=== PATIENT | female | born 1945 | race Caucasian/White ===

== ENCOUNTER 2017-10-21 14:00 | Outpatient (RCR) | payer MEDICARE, OTHER, SELFPAY ==
--- NOTE | 2017-09-29 16:37 | HP.PTEVAL_ITS ---
Patient's Visit Information JAVIER STANFORD is a 71 year old F referred to Physical Therapy by Radha Casanova with a diagnosis of Myesthenia Gravis. Date of Evaluation: 09/29/17 Physical Therapist: Shirley Hubbard - Visit Plan Frequency: 3x /Week Duration: 3 Weeks Plan: Focus on posture and head control - Subjective Subjective: Patient reports that she has been through a very traumatic few months. She got her hip replaced and started to feel that something was not right. She was driving in the car with her and started to see spots. She went to the eye doctor and he sent her to the ER due to weakness of the eye muscles. She has had multiple hospital stays at [place] [facility] and ended up with a diagnosis of Myasthenia Gravis. She reports that her neck has been the most effected and she is having good return of vision. She had home therapy for 6 weeks and is now ready to start outpatient. She is still doing the exercises from the PT at home but not as much as she thinks she should. She has no pain in the neck just reports stiffness. She wears a cervical collar at the end of the day and when she has to get things done around the house. She is very frustrated about Thanksgiving coming up and she is unsure how she will get it all done. at home to help. Does not stop her from sleeping. Feels the best in the AM. PMHx/meds in chart - Objective Posture: severe forward head- patient can not raise eyes to eye level without head falling forwards or leaning back. She can not obtain upright posture with trunk or cervical spine. Gait: antalgic- uses FWW. Observation; patient wears cervical collar. ROM: seated patient does not obtain ROM of cervical spine due to decreased strength, while supine patient demonstrates full ROM without pain. UE: WNL in all planes. Strength; Cervical: 2+/5, Shoulder; 4+/5 Scap s/s; poor , Core s/s:poor. - Goals Goal 1:: Patient will be I with HEP and progression Goal Time Frame: 4-6 Weeks Goal 2:: Patient will maintain proper posture t/o tx session Goal Time Frame: 4-6 Weeks Goal 3:: Patient will hold eye level for 15 seconds Goal Time Frame: 4-6 Weeks Goal 4:: Patient will report ability to perform ADL's with less than 25% assistance Goal Time Frame: 4-6 Weeks - Rehabilitation Potential Physical Therapy Diagnosis: Patient present with forward head and poor posture leading to inability to perform ADL's. Rehabilitation Potential: Fair - Anticipated Interventions Patient/Client Instruction: Educate patient on: Benefits of Fitness Program For the Purpose of:: To increase tolerance to activity/condition/position Therapeutic Exercise to Include: Strength training, Endurance training, Body mechanics, Postural training, Passive ROM, Active ROM, Scapular Strength/ Stabilization For the Purpose of:: To improve muscle performance and motor function Thank you for the opportunity to evaluate your patient. For Medicare and Medicare HMO plans, please review the plan of care and approve it. It will need to be FAXED BACK to us at [phone] for Medicare purposes. Please let me know if there are questions or concerns regarding this plan of care. Physician Signature: Date:
--- NOTE | 2017-12-16 14:01 | HP.PTDCNRP_ITS ---
HP - Discharge Summary (1) - Patient Information JAVIER STANFORD was seen in my office for initial evaluation on 09/29/17. The following Plan of Care was established for this patient: Initial Frequency: 3x /Week Initial Duration: 3 Weeks - Anticipated Interventions Patient/Client Instruction: Educate patient on: Benefits of Fitness Program For the Purpose of:: To increase tolerance to activity/condition/position Therapeutic Exercise to Include: Strength training, Endurance training, Body mechanics, Postural training, Passive ROM, Active ROM, Scapular Strength/ Stabilization For the Purpose of:: To improve muscle performance and motor function This patient was last seen in our office . Pertinent comments regarding their Physical therapy will appear below: At this point I will be discontinuing this patient from physical therapy. I would be happy to see this patient again in the future if found appropriate by the physician. Thank you! Shirley Hubbard
== END 2017-10-21 19:00 | disposition home or self-care (01) ==
LOC: PT 14:00
PROVIDERS: Family Provider Nurse Practitioner; PCP Nurse Practitioner; Visit Provider Nurse Practitioner
DX: G70.00 Myasthenia gravis without (acute) exacerbation (principal)
CPT/HCPCS: 97110; 97163; G8978; G8979

== ENCOUNTER 2018-06-17 16:00 | Outpatient (RCR) | payer MEDICARE, OTHER, SELFPAY ==
--- NOTE | 2018-04-22 17:41 | HP.PTEVAL_ITS ---
Patient's Visit Information JAVIER STANFORD is a 72 year old F referred to Physical Therapy by SUSIE Hoff with a diagnosis of Unsteady gait, unsteady balance. Date of Evaluation: 04/22/18 Physical Therapist: Jose C Mtz PT, - Visit Plan Frequency: 2x /Week Duration: 4 Weeks Plan: Nustep for endurance. Strengthening program focusing proximal muscle groups and functional training. Static and dynamic balance program. Precautions : Falls risk. Myasthenia Gravis, R DREW 05/2018, R TKA ~2004. - Subjective Subjective: This 72 y/o female presents to physical therapy unteady gait.Pt reports that she started noticing L LE weakness about a year ago after her R DREW on 05/2018. Her main c/o is worsening endurance, balance, and strength. She does have mild L groin pain that worsens with strenuous activities. She was diagnosed with Myasthenia Gravis last year. Had outpatient PT here at [facility] in October for her neck. She notes proximal weakness. She is able to cook small meals, do laundry, dishes, and do light housework. She does have history of falls, most recent was 6 weeks ago. She has been using cane since her R DREW. She feels too unsteady without the cane. SOCIAL: Ranch style home with basement, 2 SU. Lives with who is ill health, HHPT coming to house. No issues with manuvering through the house. - Objective GAIT: ambulates with SPC in L UE, holds head in flexion, forwardly flexed. NEURO: dermatomes intact, myotome intact, L3 DTR 2+. STRENGTH: B hip abd 2/5. B hip flexors 4/5,quads/hams 4-/5. FLEXIBILITY: Severe tightness B hip flexors. STATIC BALANCE: mild sway with narrow ANANDA with eyes closed. Able to peanut picker object off ground with supervision. - Balance Scores Functional Gait Assessment Score: 9 % Disability: 70.0000 - Goals Goal 1:: Pt will score 4 points better on FGA to demonstrate a true change in dynamic balance. Goal Time Frame: 4-6 Weeks Goal 2:: Pt will demonstrate hip ext/abd strength of 3+/5 to aid in pelvic stability with ambulation. Goal Time Frame: 4-6 Weeks Goal 3:: Pt will report at least 50% improvement on LEFS to demonstrate improved function and QOL. Goal 4:: Pt will be independent with HEP to sustain gains made in PT. - Rehabilitation Potential Physical Therapy Diagnosis: Pt is 72 y/o female who presents to therapy with referaal for unsteady gait and balance. She notes endurance, strength, and balance as primary concerns. She was diagnosed with Myasthenia Gravis last year. She demonstrates significant proximal muscle weakness and poor balance on exam. She has activity limitations that include decreased ambulation distance, decreased functional strength, and decreased independence with ambulation. This affects her participation with household activities. Pt will benefit from skilled PT to address the mentioned impairments to maximize her functional potential. Rehabilitation Potential: Good - Anticipated Interventions Patient/Client Instruction: Educate patient on: Condition, Plan of Care For the Purpose of:: To improve ability to perform ADL's, To increase tolerance to activity/condition/position, To improve ability of physical actions for home/ community/work/leisure, To improve gait and locomotor functions, To improve endurance, To improve balance, To improve safety with gait, To improve safety, To improve health and function Therapeutic Exercise to Include: Strength training, Endurance training, Balance training, Coordination, Postural training, Flexibilty training, Gait and locomotor training, Active ROM For the Purpose of:: To improve muscle performance and motor function, To improve ability to perform ADL's, To increase tolerance to activity/condition/ position, To improve ability of physical actions for home/community/work/leisure , To improve gait and locomotor functions, To improve safety with gait, To improve safety TENS: Yes IF ES: Yes Other electric stimulation: Yes Cryotherapy (ice pack, ice massage): Yes Thermo therapy (hot pack): Yes Ultrasound (thermal/non thermal): Yes For the Purpose of:: To decrease pain, To decrease soft tissue restriction, To increase flexibility/ROM Thank you for the opportunity to evaluate your patient. For Medicare and Medicare HMO plans, please review the plan of care and approve it. It will need to be FAXED BACK to us at [phone] for Medicare purposes. Please let me know if there are questions or concerns regarding this plan of care. Physician Signature: Date:
--- NOTE | 2018-05-19 16:55 | HP.PTREVAL_ITS ---
Flory Kapadia, NHAN-C, It has been my pleasure to treat JAVIER STANFORD over the last 9 visits for Unsteady gait, unsteady balance. Please see the progress note below for an update on the physical therapy plan of care! Subjective: Pt believes that she has made about 40% improvement thus far with PT. She still notes weakness in her hips and some balance deficits while walking. She agrees to continue for about month to work more on these problems. Objective/Function: Pt appears to be improving. She reports 40% improvement with gait since starting PT. She has met 2/4 PT goals. Her FGA has improved 3 points and her LEFS has improved 16 points. She exhibits 2/5 MMT grade for hip abd and ext. She would benefit from additional therapy to address hip strength, hip mobility, and balance. Plan Plan: Continue x2/week for 4 weeks to work on hip strength and progressive balance. Goals Goal 1:: Pt will score 4 points better on FGA to demonstrate a true change in dynamic balance. Goal Time Frame: 4-6 Weeks Goal Progress: Progressing Goal 2:: Pt will demonstrate hip ext/abd strength of 3+/5 to aid in pelvic stability with ambulation. Goal Time Frame: 4-6 Weeks Goal Progress: Progressing Goal 3:: Pt will report at least 50% improvement on LEFS to demonstrate improved function and QOL. Goal Progress: Goal Met Goal 4:: Pt will be independent with HEP to sustain gains made in PT. Goal Progress: Goal Met Anticipated Interventions Patient/Client Instruction: Educate patient on: Condition, Plan of Care For the Purpose of:: To improve ability to perform ADL's, To increase tolerance to activity/condition/position, To improve ability of physical actions for home/ community/work/leisure, To improve gait and locomotor functions, To improve endurance, To improve balance, To improve safety with gait, To improve safety, To improve health and function Therapeutic Exercise to Include: Strength training, Endurance training, Balance training, Coordination, Postural training, Flexibilty training, Gait and locomotor training, Active ROM For the Purpose of:: To improve muscle performance and motor function, To improve ability to perform ADL's, To increase tolerance to activity/condition/ position, To improve ability of physical actions for home/community/work/leisure , To improve gait and locomotor functions, To improve safety with gait, To improve safety TENS: Yes IF ES: Yes Other electric stimulation: Yes Cryotherapy (ice pack, ice massage): Yes Thermo therapy (hot pack): Yes Ultrasound (thermal/non thermal): Yes For the Purpose of:: To decrease pain, To decrease soft tissue restriction, To increase flexibility/ROM Please do not hesitate to contact me at [phone] by phone or Fax: if you have questions or concerns regarding this new plan of care! Sincerely, Jose C Mtz PT,
--- NOTE | 2018-06-17 16:31 | HP.PTDCSUM ---
HP - PT D/C Summary It has been my pleasure to treat JAVIER STANFORD under orders from MARTHA HoffC, for the diagnosis of Unsteady gait, unsteady balance for a total of 17 visit(s). Discharge Date: 06/17/18 Please see the following information for a summary of their discharge status. - Subjective Subjective: Doing alot better ,walking better. Patient states stiffness. Doing better with ADLS' at home. Wants to be seen for PT for cervical spine. - Overall Improvement % Improvement: 75 - Objective Objective/Function: POSTURE: foward head rounded shoulders. GAIT: Ambulates with cane 2 point mild foward posture. reciprocal pattern. BALANCE: good - dynamic. MMT: quads/hams 4/5,hip flexion 4-/5,ankle 4/5. STAIRS: one steps at time - Goals Goal 1:: Pt will score 4 points better on FGA to demonstrate a true change in dynamic balance. Goal Progress: Goal Met Goal 2:: Pt will demonstrate hip ext/abd strength of 3+/5 to aid in pelvic stability with ambulation. Goal Progress: Progressing Goal 3:: Pt will report at least 50% improvement on LEFS to demonstrate improved function and QOL. Goal Progress: Goal Met Goal 4:: Pt will be independent with HEP to sustain gains made in PT. Goal Progress: Goal Met - Plan Plan: D/C TO HEP - D/C Information Discharge Comments: HEP If there are questions or concerns regarding this patient's physical therapy, please feel free to call me at [phone]. Thank you for the referral of this patient. Sincerely, Jose C Mtz, PT,
== END 2018-06-17 19:00 | disposition home or self-care (01) ==
LOC: PT 16:00
PROVIDERS: Family Provider Nurse Practitioner; PCP Nurse Practitioner; Visit Provider Nurse Practitioner Acute Care
DX: R26.81 Unsteadiness on feet (principal)
CPT/HCPCS: 97110; 97116; 97162; 97530

== ENCOUNTER → 2018-07-16 14:33 | Outpatient (CLI) | payer MEDICARE, OTHER, SELFPAY ==
[2018-07-16 16:25] LABS: Free T3 1.8 pg/mL (2.18-3.98); T4 Free Direct 1.16 ng/dL (0.76-1.46)
== END ==
PROVIDERS: Family Provider Nurse Practitioner; PCP Nurse Practitioner; Visit Provider Nurse Practitioner
DX: R94.6 Abnormal results of thyroid function studies (principal)
CPT/HCPCS: 36415; 84439; 84443; 84481

== ENCOUNTER → 2018-10-14 14:10 | Outpatient (CLI) | payer MEDICARE, OTHER, SELFPAY ==
--- NOTE | 2018-10-14 14:16 | BI_ITS ---
MAMMOGRAPHY - BILATERAL SCREENING REASON FOR EXAM: Female, 72 years old. Routine annual screening examination. PERTINENT HISTORY: Non-contributory. TECHNIQUE: Digital bilateral breast negrito (3D mammographic acquisition) in the CC and MLO projections. 2-D mediolateral oblique (MLO) and craniocaudad (CC) views of both breasts were obtained. CAD: Full Field Digital Mammography with Computer Added Detection was performed. COMPARISON: Comparison is made with prior study dated September 23, 2016 and February 10, 2014. FINDINGS: Breast Composition: The breasts are almost entirely fatty. There are no dominant masses or suspicious calcifications. No other significant abnormalities are identified. There has been no significant change since the prior study. BI/SCREENING MAMM (CAD), BILAT IMPRESSION: Stable bilateral screening mammogram. Yearly follow-up mammogram recommended. (A) ASSESSMENT CATEGORY: BIRADS Category 1: Negative. A letter regarding these results will be sent to the patient by the facility within 30 days. Approximately 10% of breast cancers are not detected by mammography. A normal mammogram should not delay biopsy of a clinically suspicious abnormality. [id number] Electronically Signed: Stephen Marroquin MD at 15:40 EST Tel [phone], Service support ,
--- NOTE | 2018-10-14 14:22 | BD_ITS ---
STUDY: DUAL ENERGY X-RAY ABSORPTIOMETRY / DXA REASON FOR EXAM: Female, 72 years old. The patient is postmenopausal. Loss of height. TECHNIQUE: Bone Mineral Density (BMD) measurements of lumbar spine and left hip were obtained. The patient is status post right hip replacement. COMPARISON: Comparison is made with prior study dated September 23, 2016. FINDINGS: Lumbar Spine (L1-L4): g/cm2 (1.147) / T-score (-0.4) / Z-score (1.3) Findings are suggestive of normal bone density with a low fracture risk. Left Femur Total: g/cm2 (0.942) / T-score (-0.5) / Z-score (1.1) Left Femoral Neck: g/cm2 (0.955) / T-score (-0.6) / Z-score (1.3) The T-Scores on the most recent prior examination were: Lumbar Spine (L1-L4): There has been worsening of bone density since the previous examination. Left Femur Total: which represents a worsening of 9.1%. Right Femur Total: . BD/Dexa Bone Density Study IMPRESSION: The patient is considered normal as outlined below according to World Franco Organization (WHO) criteria with a low fracture risk. There has been worsening of bone density since the previous examination. Reference Information: The T-score is the number of standard deviations above or below the standard which is normal for young adults at their peak bone mineral density. The World Health Organization (WHO) interprets the T-scores as follows: Above -1 Normal bone density Between -1 and -2.5 Osteopenia Equal to / or below -2.5 Osteoporosis As a practical clinical guideline, osteopenia may be graded as follows: Mild -1 through -1.5 Moderate -1.6 through -2.0 Severe -2.1 through -2.4 The Z-score is the number of standard deviations above or below age-matched controls. A Z-score of less than -1.5 would be considered abnormal. References: 1. NIH Osteoporosis and Related Bone Diseases http://www.osteo.org 2. International Society for Clinical Densitometry http://www.iscd.org 3. National Osteoporosis Foundation http://www.nof.org Electronically Signed: Stephen Marroquin MD at 12:17 EST Tel [phone], Service support ,
== END ==
PROVIDERS: Family Provider Nurse Practitioner; PCP Nurse Practitioner; Visit Provider Nurse Practitioner
DX: Z12.31 Encounter for screening mammogram for malignant neoplasm of breast (principal); Z78.0 Asymptomatic menopausal state
CPT/HCPCS: 77063; 77067; 77080

== ENCOUNTER → 2019-04-15 14:51 | Outpatient (CLI) | payer MEDICARE, OTHER, SELFPAY ==
--- NOTE | 2019-04-15 15:05 | RAD_ITS ---
STUDY: X-RAY - PELVIS AND LEFT HIP REASON FOR EXAM: Female, 73 years old. Left hip pain. Patient fell TECHNIQUE: 3 views of the pelvis and hip. COMPARISON: None. FINDINGS: There is a cementless right hip hemiarthroplasty with hardware in good position. Severe osteoarthritis of the left hip. Tubal ligation clips in the pelvis. No acute fractures or dislocations. RAD/HIP, UNI W/ Pelvis 2-3 Views IMPRESSION: Severe osteoarthritis of the left hip. A cementless bipolar right hip hemiarthroplasty. No fracture Electronically Signed: Darius Shoemaker MD at 4:44 EDT Tel , Service support ,
== END ==
PROVIDERS: Family Provider Nurse Practitioner; PCP Nurse Practitioner; Referring Provider Nurse Practitioner Family; Visit Provider Nurse Practitioner Family
DX: M25.552 Pain in left hip (principal)
CPT/HCPCS: 73502

== ENCOUNTER → 2019-05-11 14:36 | Outpatient (CLI) | payer MEDICARE, OTHER, SELFPAY ==
[2019-05-11 14:23] VITALS: BMI 31.4
--- NOTE | 2019-05-11 14:39 | RAD_ITS ---
STUDY: X-RAY - PELVIS AND LEFT HIP REASON FOR EXAM: Female, 73 years old. Preop left hip, history of pain TECHNIQUE: 3 views of the pelvis and hip. COMPARISON: 01/29/2017 FINDINGS: There is narrowing of the superior left femoral acetabular joint space which demonstrates interval worsening. There are stable significant osteophyte formation of the left hip. There is also stable acetabular osteophytes. There has been total right hip prosthesis since prior exam which is incompletely imaged on this study. There are no fractures. There is a marker overlying the left hip. There are stable surgical clips within the pelvis. There is generalized osteopenia. There are vascular calcifications in the pelvis. The entire pelvis was not included on the [id number]. The superior pelvis was excluded from the [id number]. RAD/HIP, UNI W/ Pelvis 2-3 Views IMPRESSION: Interval worsening significant osteoarthrosis of the left hip Right hip prosthesis in place in good position No acute fractures Marker overlying the left hip The superior pelvis was excluded from the [id number] Generalized osteopenia Vascular calcifications in the pelvis Stable surgical clips within the pelvis Electronically Signed: Chava Xie, at 0:09 EDT Tel , Service support ,
== END ==
PROVIDERS: Family Provider Nurse Practitioner; PCP Nurse Practitioner; Referring Provider Orthopaedic Surgery; Visit Provider Orthopaedic Surgery
DX: M16.12 Unilateral primary osteoarthritis, left hip (principal)
CPT/HCPCS: 73502

== ENCOUNTER → 2019-05-31 15:47 | Outpatient (CLI) | payer MEDICARE, OTHER, SELFPAY ==
[2019-05-31 10:03] VITALS: BMI 33.1
--- NOTE | 2019-05-31 15:55 | RAD_ITS ---
STUDY: X-RAY CHEST REASON FOR EXAM: Female, 73 years old. Pre-op. TECHNIQUE: PA and lateral views of the chest. COMPARISON: July 19 and August 12, 2017 FINDINGS: There is a nonspecific right basilar opacity. The lungs are hyperinflated. Normal size heart. Normal mediastinum and nohemi. Normal visualized pulmonary arteries. There is atherosclerotic calcification of the aortic arch with tortuosity. Normal visualized thoracic spine. There are left lateral rib deformities consistent with healed fractures. There is no demonstrated abnormality of the visualized soft tissue structures of the upper abdomen. RAD/Chest PA and Lateral IMPRESSION: Nonspecific right basilar opacities may be secondary to minimal atelectasis and/or scarring. Electronically Signed: Mimi Armendariz MD at 16:12 EDT Tel , Service support ,
== END ==
PROVIDERS: Family Provider Nurse Practitioner; PCP Nurse Practitioner; Referring Provider Nurse Practitioner; Visit Provider Nurse Practitioner
DX: R06.02 Shortness of breath (principal)
CPT/HCPCS: 71046

== ENCOUNTER 2019-06-14 04:28 | Inpatient (IN) | payer MEDICARE, OTHER, SELFPAY ==
--- NOTE | 2019-05-11 02:33 | HP_ITS ---
Intake Vital Signs 05/11/19 Body Mass Index (BMI) 31.4 05/11/19 Height 5 ft 1.5 in 05/11/19 Weight: 182 lb 05/11/19 Body Mass Index (BMI) 33.8 Intake Visit Reasons: LEFT HIP Is patient in pain?: Yes Pain scale (1-10): 6 Allergies No Known Allergies Allergy (Verified 07/15/18 13:50) Medications Acetaminophen [Tylenol] 1,000 mg PO Q8H PRN PRN tab 07/28/17 [Rx Confirmed 07/15/18] Metoprolol Tartrate [Lopressor (beta aleksey)] 25 mg PO BID 08/12/17 [History Confirmed 05/11/19] busPIRone [Buspar] 7.5 mg PO BID 08/12/17 [History Confirmed 05/11/19] Pyridostigmine Carbon [Mestinon] 60 mg PO Q6 #120 tab 08/18/17 [Rx Confirmed 05/11/19] albuterol sulfate HFA 90 mcg/actuation aerosol inhaler 2 puff INHALATION Q6H PRN 07/13/18 [History Confirmed 07/15/18] mycophenolate mofetil 500 mg tablet 500 mg PO BID 07/13/18 [History Confirmed 05/11/19] lisinopril 20 mg tablet 20 mg PO DAILY #30 tab 07/15/18 [Rx Confirmed 05/11/19] levothyroxine 25 mcg tablet PO #90 tab 05/11/19 [History Confirmed 05/11/19] PFSH Medical History Tobacco abuse (Chronic) Anxiety (Chronic) Bilateral pneumonia (Acute) Septic shock (Acute) Atrial fibrillation (Acute) Suspected pulmonary embolism (Acute) below knee dvt (Acute) Acute hypoxemic respiratory failure (Acute) Ptosis (Acute) Cervical disc disease (Chronic) Neck pain (Acute) Atrial fibrillation with RVR (Acute) HTN (hypertension) (Chronic) Myasthenia gravis (Chronic) suspected myasthenia gravis (Inactive) Surgical History History of bilateral tubal ligation (Resolved) History of dilatation and curettage (Resolved) History of hip replacement (Resolved) History of knee replacement procedure of right knee (Resolved) Family History (Updated 07/13/18 @ 15:21 by Margaret Tam) Father Myocardial infarction, Onset Age: 44 Social History (Updated 05/11/19 @ 15:30 by Milan Galicia DO) Smoking Status: Current every day smoker alcohol intake: current details: 1 beer daily substance use type: does not use HPI LEFT HIP: Surgical H&P: Yes Details: Parts of this documentation were recorded by a scribe, this documentation accurately reflects the service provided and the decisions made by me, Milan Galicia DO 05/11/19 1045. JAVIER STANFORD is a 73 year old new patient F here today for left hip pain. She has been having pain on and off for years but her groin pain is getting greater with prolonged standing and walking. She presents today ambulating with a cane. She has completed PT twice in the last year. Her right hip was replaced by Dr Bolanos in 2017. Denies numbness, tingling or other associated symptoms. She is having difficulty with hip flexion when she walks and makes her lose her balance. She has several fractures at age 37. Ortho Exam Left Hip Skin/Wound: No Ecchymosis, No Erythema Hip: Absent eccymosis or erythema internal rotation @90 degree flexion: 0 degrees external rotation @90 degree extension: 30 degrees Special Tests: hyperflexion normal HIP: neurovascularly intact Supplemental Info 05/11/2019 x-ray left hip severe DJD with shortening Assessment & Plan Problems 1. Osteoarthritis of left hip, unspecified osteoarthritis type M16.12 Plan Explained that she is a candidate for DREW and encouraged her to stop her smoking to reduce risk of infection. She will need medical clearance from her Neurologist for the myasthenia gravis, as well as a medical clearance, DREW. Will get new imaging today with Orth O ball for templating. Reviewed her post op possibilities of tcu vs home care Risks, benefits and alternatives of surgery reviewed including but not limited to bleeding, infection, nerve, artery and/or tissue damage, fracture, VTE, leg length discrepancy, dislocation, need for hip precautions, continued pain and expected post-operative course. Follow up post op or sooner if pain, swelling, numbness or associated symptoms, or concerns develop. All questions answered. Patient in agreement of plan. Coding Level of Care Code Off vis,new,level 3 Diagnoses Osteoarthritis of left hip, unspecified osteoarthritis type M16.12 ??Osteoarthritis type: unspecified 05/11/19 1531 <Electronically signed by Milan hawley DO> Date _ Milan Galicia DO
[2019-05-11 14:23] VITALS: BMI 31.4
[2019-05-31 10:03] VITALS: BP 191/95; PULSE 67; RESP 18; TEMP 36.3; O2SAT 97; BMI 33.1
--- NOTE | 2019-05-31 10:09 | SDCEKG_ITS ---
Test Reason : Blood Pressure : / mmHG Vent. 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
[2019-05-31 10:45] LABS: Hematocrit 41.5 % (37-47); Hemoglobin 13.9 g/dL (12.0-15.0); Mean Corp Hgb Conc 33.5 g/dL (32-36); Mean Corpuscular Hgb 31.4 pg (27.0-32.0); Mean Corpuscular Volume 93.7 fL (81-99); Mean Platelet Vol. 10.9 fl (6.2-12.0); Platelet Count 192 K/mm3 (150-450); RBC Distribution Width CV 12.6 % (11.6-14.6); Red Blood Count 4.43 M/mm3 (4.2-5.4); White Blood Count 6.9 K/mm3 (4.4-11.0)
[2019-05-31 11:07] LABS: Anion Gap 7 (5-15); BUN 22 mg/dL (7-18); BUN/Creat Ratio 27.2 RATIO (10-20); Calcium,Total 9.7 mg/dL (8.5-10.1); Chloride 111 mmol/L (98-107); Creatinine, Serum 0.81 mg/dL (0.55-1.02); EST Glomerular Filtration Rate 74 mL/min (>60); Est Glom Filt Rate - Afr Amer 89 mL/min (>60); Estimated Creatinine Clearance 48.19 ml/min; Glucose 106 mg/dL (74-106); Potassium 4.3 mmol/L (3.5-5.1); Sodium Level 140 mmol/L (136-145); Thyroid Stim Hormone (TSH) 2.05 uIU/mL (0.358-3.74)
--- NOTE | 2019-06-02 09:51 | CASEMGMT ---
Call placed to patient to discuss discharge needs after upcoming surgery. answered phone, reports patient is sleeping. reports that physician told them patient would be kept in the hospital for a few days. was thinking patient would go to [facility] TCU. reports that patient does not have a walker, but has everything else set up d/t having a hip replacement a few years ago. There is a bedroom and a bathroom on the first level of the home. Meme Jhaveri LPN Clinical Support
[2019-06-07] MEDS: Gabapentin 600 MG Tablet PO (06:25)
[2019-06-14] VITALS (14 sets, daily range): BP systolic 114–146; BP diastolic 48–94; PULSE 60–77; RESP 16–18; TEMP 35.9–37.2; O2SAT 94–100; BMI 33.1; BMI 33.2
[2019-06-14] MEDS: Magnesium Sulfate 4gm/100mL 4 GM/100 ML IV.SOLN. IV ×2 (06:25→06:35)
[2019-06-14] MEDS: Scopolamine 1mg/72hr Patch 1 PATCH TRANSDERM. ×2 (06:25→06:37)
[2019-06-14] MEDS: Celecoxib 200 MG Capsule 400 MG PO ×2 (06:35→06:36)
[2019-06-14] MEDS: Acetaminophen 500 MG Tablet 1000 MG PO ×4 (06:35→22:36)
[2019-06-14] MEDS: Gabapentin 600 MG Tablet PO (06:40)
--- NOTE | 2019-06-14 07:20 | PCM.HP.BLA ---
History and Physical istory and Physical 05/11/19 0233 MR#: [id number] Acct: [id number] Name: JAVIER STANFORD Rep #: [id number] : 1945 73 From: Milan Galicia DO PCP: Radha Casanova, NEUROPSYCHOLOGY DIRECTOR Status: PRE IN [place] [facility] [place] Vital Signs 05/11/19 Body Mass Index (BMI) 31.4 05/11/19 Height 5 ft 1.5 in 05/11/19 Weight: 182 lb 05/11/19 Body Mass Index (BMI) 33.8 Intake Visit Reasons: LEFT HIP Is patient in pain?: Yes Pain scale (1-10): 6 Allergies No Known Allergies Allergy (Verified 07/15/18 13:50) Medications Acetaminophen [Tylenol] 1,000 mg PO Q8H PRN PRN tab 07/28/17 [Rx Confirmed 07/15/18] Metoprolol Tartrate [Lopressor (beta aleksey)] 25 mg PO BID 08/12/17 [History Confirmed 05/11/19] busPIRone [Buspar] 7.5 mg PO BID 08/12/17 [History Confirmed 05/11/19] Pyridostigmine [place] [Mestinon] 60 mg PO Q6 #120 tab 08/18/17 [Rx Confirmed 05/11/19] albuterol sulfate HFA 90 mcg/actuation aerosol inhaler 2 puff INHALATION Q6H PRN 07/13/18 [History Confirmed 07/15/18] mycophenolate mofetil 500 mg tablet 500 mg PO BID 07/13/18 [History Confirmed 05/11/19] lisinopril 20 mg tablet 20 mg PO DAILY #30 tab 07/15/18 [Rx Confirmed 05/11/19] levothyroxine 25 mcg tablet PO #90 tab 05/11/19 [History Confirmed 05/11/19] [facility] Medical History Tobacco abuse (Chronic) Anxiety (Chronic) Bilateral pneumonia (Acute) Septic shock (Acute) Atrial fibrillation (Acute) Suspected pulmonary embolism (Acute) below knee dvt (Acute) Acute hypoxemic respiratory failure (Acute) Ptosis (Acute) Cervical disc disease (Chronic) Neck pain (Acute) Atrial fibrillation with RVR (Acute) HTN (hypertension) (Chronic) Myasthenia gravis (Chronic) suspected myasthenia gravis (Inactive) Surgical History History of bilateral tubal ligation (Resolved) History of dilatation and curettage (Resolved) History of hip replacement (Resolved) History of knee replacement procedure of right knee (Resolved) Family History (Updated 07/13/18 @ 15:21 by Margaret Tam) Father Myocardial infarction, Onset Age: 44 Social History (Updated 05/11/19 @ 15:30 by Milan Galicia DO) Smoking Status: Current every day smoker alcohol intake: current details: 1 beer daily substance use type: does not use HPI LEFT HIP: Surgical H&P: Yes Details: Parts of this documentation were recorded by a scribe, this documentation accurately reflects the service provided and the decisions made by me, Milan Galicia DO 05/11/19 0755. JAVIER STANFORD is a 73 year old new patient F here today for left hip pain. She has been having pain on and off for years but her groin pain is getting greater with prolonged standing and walking. She presents today ambulating with a cane. She has completed PT twice in the last year. Her right hip was replaced by Dr Bolanos in 2017. Denies numbness, tingling or other associated symptoms. She is having difficulty with hip flexion when she walks and makes her lose her balance. She has several fractures at age 37. Ortho Exam Left Hip Skin/Wound: No Ecchymosis, No Erythema Hip: Absent eccymosis or erythema internal rotation @90 degree flexion: 0 degrees external rotation @90 degree extension: 30 degrees Special Tests: hyperflexion normal HIP: neurovascularly intact Supplemental Info 05/11/2019 x-ray left hip severe DJD with shortening Assessment & Plan Problems 1. Osteoarthritis of left hip, unspecified osteoarthritis type M16.12 Plan Explained that she is a candidate for DREW and encouraged her to stop her smoking to reduce risk of infection. She will need medical clearance from her Neurologist for the myasthenia gravis, as well as a medical clearance, DREW. Will get new imaging today with Orth O ball for templating. Reviewed her post op possibilities of tcu vs home care Risks, benefits and alternatives of surgery reviewed including but not limited to bleeding, infection, nerve, artery and/or tissue damage, fracture, VTE, leg length discrepancy, dislocation, need for hip precautions, continued pain and expected post-operative course. Follow up post op or sooner if pain, swelling, numbness or associated symptoms, or concerns develop. All questions answered. Patient in agreement of plan. Coding Level of Care Code Off vis,new,level 3 Diagnoses Osteoarthritis of left hip, unspecified osteoarthritis type M16.12 ??Osteoarthritis type: unspecified 05/11/19 1531 <Electronically signed by Milan Galicia DO> Date Milan Galicia DO 05/25/19 1631 <Electronically signed by Milan Galicia DO> Date: Time: Milan Galicia DO CC: NHAN Casanova; Milan Galicia DO ~ Date Dictated: 05/11/19 0233 Date Transcribed: 05/24/19 0822 Tile Machine Operator: Signed I have re-examined the patient. There are no clinical changes since date of exam
[2019-06-14 07:31] LABS: Bedside Glucose 131 mg/dL (70-110)
[2019-06-14] MEDS: Cefazolin 2 GM in 0.9% Normal Saline 100 ML IV ×3 (07:34→22:55)
--- NOTE | 2019-06-14 09:34 | RAD_ITS ---
STUDY: X-RAY - PELVIS AND LEFT HIP REASON FOR EXAM: Female, 73 years old. Left hip replacement. TECHNIQUE: 2 views of the pelvis and hip. COMPARISON: None. FINDINGS: The patient is status post left hip replacement. There is good alignment. Postoperative soft tissue changes. RAD/Hip Min 2 Views (Portable) IMPRESSION: Status post left hip replacement. There is good alignment. Electronically Signed: Stephen Marroquin, at 13:07 EDT , Service support ,
--- NOTE | 2019-06-14 09:39 | OP.PCM_ITS ---
Report of Operation Date of Procedure: 06/14/19 Description of Surgical Findings:: Preoperative diagnosis: DJD left hip Postoperative diagnosis: Same Procedure: Left total hip arthroplasty Implants: Valentin Accolade II stem size 4 127 degree neck angle -2.5 neck length 54 mm cup with 35 cancellous screw 36 mm ceramic head Anesthesia: Spinal EBL: 150 cc Complications: None Condition: Stable to PACU Indication for procedure: This is a 73-year-old female who has had long-standing arthrosis of the hip who has failed conservative treatment and wished to undergo total hip arthroplasty. We did discuss operative versus nonoperative intervention including risks of bleeding, infection , nerve artery tissue damage , need for further surgery, fracture, leg length discrepancy dislocation blood clot and need for postoperative physical therapy and postoperative expectations. An informed consent was signed. Procedure: Patient was met in the preoperative holding area once again the operative extremity was identified by both patient and physician and was marked. Patient was met by anesthesia and a spinal was placed. patient was then positioned in the lateral decubitus position on a well-padded pegboard with an axillary roll. All bony prominences were checked and padded. The patient was prepped and draped in the usual sterile fashion. A timeout was called to ensure the proper patient procedure and extremity were being contemplated. Anatomic landmarks were palpated and marked for a standard posterior lateral approach. A 10 blade scalpel was used to make a posterior incision through the skin and subcutaneous tissue. In retractors were used and electrocautery was used to maintain meticulous hemostasis and dissect full-thickness flaps until the gluteal fascia was reached. The gluteal fascia was incised in line with the gluteal fibers. The bursal tissue was then freed from the underside and a Charnley retractor was placed. The fat pad was elevated off of the external rotators with electrocautery and the external rotators were dissected off of the greater trochanter including the piriformis and were tagged with #1 Ethibond for later repair. The joint capsule opened with posterior trapdoor technique. The hip was surgically dislocated. Hohmann was placed around the lesser trochanter. A neck cutting guide was used to eva the neck with a Bovie and an oscillating saw was used complete the femoral neck cut. The femoral head was then removed and sized. We then turned our attention to the acetabulum. A Bovie was used to make a perforation in the anterior joint capsule and a pointed Hohmann was placed this was repeated in the 6 o'clock position a wide scarlet was placed there. With a long handled knife the labral and pulvinar tissue were removed. We then began sequential reaming until the appropriate size was achieved. We then fit the acetabular shell in place with good customer service administrator to the acetabulum. We then proceeded to place a posterior superior screw by drilling first measuring and inserting the screw. We then inserted a trial liner. And turned our attention back to the femur at this point a femoral elevator was used. As well as a pointed wide Hohmann around the lesser trochanter and a Hohmann to help retract the gluteus medius. A box chisel was used to remove excess lateral neck followed by a canal finder and a lateralizing reamer. This was followed by sequential broaches. Attention was made of the version within the canal. Once the final broach was seated we then trialed reduced the hip it was determined that a 27 degree neck angle with a -2.5 neck length was the appropriate size. We then checked ability with shuck testing as well as flexion and internal rotation. then proceeded with hip extension and checked leg lengths at the knees and heels. At this point trials were removed. A posterior lipped liner was inserted to the cup. The femoral stem was inserted. We re-trialed and then proceeded to impact the femoral head onto the Carl taper. We then surgically reduce the hip check stability again and leg lengths and were satisfied. Betadi ne rinse was allowed to sit for 5 minutes while everyone changed their gloves. Thorough irrigation was performed. Followed by closure of the external rotators with #2 FiberWire followed by closure of gluteal fascia with #1 Ethibond. 0 Vicryl fat stitches and 2-0 Vicryl subcutaneous stitches and jeniffer in the skin. Dressing was applied in the form of Xeroform 4 x 4 ABD Ioband and an abduction pillow was placed. Patient tolerated the procedure well there was no intraoperative complications all counts were correct and the patient was brought back to the PACU in stable condition
[2019-06-14 10:46] LABS: Bedside Glucose 122 mg/dL (70-110)
[2019-06-14] MEDS: oxyCODONE 5 MG Tablet PO (12:15)
[2019-06-14] MEDS: Famotidine 20 MG Tablet PO (12:15)
[2019-06-14] MEDS: Senna/Docusate Sodium 1 Tablet 2 TABLET PO ×2 (12:15→22:38)
[2019-06-14] MEDS: APIXABAN 2.5 MG TABLET PO (12:15)
[2019-06-14] MEDS: Metoprolol Tartrate 25 MG Tablet PO ×2 (12:15→22:52)
[2019-06-14] MEDS: Mycophenolate Mofetil 250 MG Capsule PO ×2 (12:16→22:52)
[2019-06-14] MEDS: Mycophenolate Mofetil 250 MG Capsule 750 MG PO ×2 (12:17→22:53)
[2019-06-14] MEDS: busPIRone 15 MG TABLET 7.5 MG PO ×2 (12:17→22:37)
[2019-06-14] MEDS: Lactated Ringers 1,000 ML 125 ML IV ×2 (12:18→20:04)
--- NOTE | 2019-06-14 13:44 | CPS ---
Pt declined I.S., pt says she will do DB&C on own each hour.
[2019-06-14] MEDS: Pyridostigmine Bromide 60 MG Tablet PO ×2 (14:38→20:44)
--- NOTE | 2019-06-14 15:15 | CASEMGMT ---
Social Work Spoke with patient about discharge plans and rehab for hip replacement. Pt interested in TCU, but there is a waitlist. Educated pt to Inpatient Rehab unit, the 3 hours per day of therapy. Pt stated she already walked up and down the hallway post surgery and is confident she can withstand the intensive therapy. Pt was independent prior and caregiver for . Pt agreed to RU referral. SW made referral. Lynnette Pastor, HERB COUNSELOR ASSISTANT COACH
[2019-06-14] MEDS: 0.9% NaCl Peripheral Flush Adult/Peds IV (20:14)
[2019-06-14] MEDS: Ketorolac 15 MG/ML Vial IV (20:14)
[2019-06-15 02:20] VITALS: BP 115/59; PULSE 62; RESP 18; TEMP 36.6; O2SAT 96
[2019-06-15] MEDS: Pyridostigmine Bromide 60 MG Tablet PO ×2 (02:52→08:28)
[2019-06-15] MEDS: 0.9% NaCl Peripheral Flush Adult/Peds IV (05:32)
[2019-06-15] MEDS: Levothyroxine 25 MCG TABLET PO (05:34)
[2019-06-15] MEDS: oxyCODONE 5 MG Tablet PO (05:40)
[2019-06-15 05:57] LABS: Hematocrit 32.8 % (37-47); Hemoglobin 10.6 g/dL (12.0-15.0); Mean Corp Hgb Conc 32.3 g/dL (32-36); Mean Corpuscular Hgb 30.1 pg (27.0-32.0); Mean Corpuscular Volume 93.2 fL (81-99); Mean Platelet Vol. 11.4 fl (6.2-12.0); Platelet Count 148 K/mm3 (150-450); RBC Distribution Width CV 12.5 % (11.6-14.6); Red Blood Count 3.52 M/mm3 (4.2-5.4); White Blood Count 8.5 K/mm3 (4.4-11.0)
[2019-06-15 06:26] LABS: Anion Gap 7 (5-15); BUN 21 mg/dL (7-18); BUN/Creat Ratio 20.6 RATIO (10-20); Chloride 111 mmol/L (98-107); Creatinine, Serum 1.02 mg/dL (0.55-1.02); EST Glomerular Filtration Rate 56 mL/min (>60); Est Glom Filt Rate - Afr Amer 68 mL/min (>60); Estimated Creatinine Clearance 38.27 ml/min; Glucose 103 mg/dL (74-106); Potassium 4.1 mmol/L (3.5-5.1); Sodium Level 141 mmol/L (136-145)
[2019-06-15] MEDS: Acetaminophen 500 MG Tablet 1000 MG PO (06:39)
--- NOTE | 2019-06-15 06:56 | ED.RN ---
called rx about the LR that is showing on the status board. Due 06-07-19 @ 0700. Rx stated they don't see it on the jan and there isn't an order. stated there wasn't anything they could do. pasquale rn notified.
--- NOTE | 2019-06-15 07:43 | PCM.PN.ORT ---
Subjective: Doing well no complaints pain controlled denies fevers chills nausea vomiting shortness of breath chest pain. Wishes to proceed to rehab - Physical Exam Extremities: - - Dressing on clean dry and intact compartment soft neurovascular intact EHL tibialis anterior gastrocsoleus intact sensation light touch palpable pedal pulses Vital Signs Temp Pulse Resp BP Pulse Ox 98 F 62 18 115/59 L 96 06/15/19 02:20 06/15/19 02:20 06/15/19 02:20 06/15/19 02:20 06/15/19 02:20 Oxygen Flow Rate (L/min) 6 Oxygen Delivery Method Room Air Weight: 184 lb 4.903 oz Body Mass Index (BMI) 33.1 Finger Stick Blood Glucose 122 Intake and Output for Last 24 Hours 06/13/19 06/14/19 06/15/19 23:59 23:59 23:59 Intake Total 4315 / 4315 710 / 710 Output Total 500 / 500 550 / 550 Balance 3815 / 3815 160 / 160 Laboratory Tests Past 24 Hrs 06/15/19 06/15/19 05:38 05:38 WBC 8.5 RBC 3.52 L Hgb 10.6 L Hct 32.8 L MCV 93.2 MCH 30.1 MCHC 32.3 RDW Std Deviation 43.0 RDW Coeff of Swetha 12.5 Plt Count 148 L MPV 11.4 Sodium 141 Potassium 4.1 Chloride 111 H Carbon Dioxide 23.0 Anion Gap 7 BUN 21 H Creatinine 1.02 Estim Creat Clear Calc 38.27 Est GFR (MDRD) Af Amer 68 Est GFR (MDRD) Non-Af 56 L BUN/Creatinine Ratio 20.6 H Glucose 103 Calcium 9.0 POC Glucose 06/14/19 10:43 POC Glucose 122 H Medical Necessity - Tobacco Use Smoking Status: Current every day smoker Tobacco Use: Cigarettes Assessment/Plan All Active Problems (Last Reviewed 05/11/19 @ 14:18 by Hua Willis) Bilateral pneumonia (Acute) Septic shock (Acute) Atrial fibrillation (Acute) Suspected pulmonary embolism (Acute) below knee dvt (Acute) Acute hypoxemic respiratory failure (Acute) Ptosis (Acute) Neck pain (Acute) Atrial fibrillation with RVR (Acute) Stop day #1 left total hip arthroplasty. Doing well pain controlled. VT prophylaxis SCDs SHAMEKA Nichols DOT weightbearing as tolerated DC to rehab Hip precautions Dressing to be removed 72 hours postop begin showering daily at that point but do not submerge jeniffer to be removed 2 weeks postop all up 2 weeks postop
--- NOTE | 2019-06-15 07:54 | DCINST_ITS ---
Discharge Diet: No Restrictions Call your doctor if you observe: Fever of 101 or Higher, Shortness of breath, Chest pain Additional Instructions: Follow hip precautions as reviewed in the hospital for total hip arthroplasty Dressing to be removed 72 hours postoperatively. Then may begin showering daily with warm soapy water but do not submerge. Change dressing daily after shower After 2 consecutive days of no drainage it may leave open to air Follow-up in the office 2 weeks for wound check staple removal Allergies/Adverse Reactions: Allergies No Known Allergies Allergy (Verified 05/31/19 09:39) Medications to take at Discharge Metoprolol Tartrate [Lopressor (beta aleksey)] 25 mg PO 1200,2300 08/12/17 busPIRone [Buspar] 7.5 mg PO BID 08/12/17 albuterol sulfate HFA 90 mcg/actuation aerosol inhaler 2 puff INHALATION Q6H PRN 07/13/18 mycophenolate mofetil 500 mg tablet 750 mg PO 1200,2300 07/13/18 levothyroxine 25 mcg tablet 25 mcg PO DAILY #90 tab 05/11/19 Cholecalciferol (Vitamin D3) [Vitamin D3] 5,000 unit PO DAILY 05/31/19 Lisinopril 20 mg PO LUNCH 05/31/19 Pyridostigmine [place] [Mestinon] 60 mg PO Q6 05/31/19 Acetaminophen [Tylenol] 1,000 mg PO Q8 tablet 06/15/19 Apixaban [Eliquis] 2.5 mg PO BID tablet 06/15/19 Oxycodone [Oxyir] 5 - 10 mg PO Q4H PRN PRN 7 Days #60 tab 06/15/19 The following prescriptions were given: Oxycodone [Oxyir] 5 - 10 mg PO Q4H PRN PRN 7 Days #60 tab PRN Reason: Mod-Severe Pain (-08/18) Prescription Printed Primary Care Physician: Radha Casanova, IT SERVICE MANAGER-C [Primary Care Provider] - Test Results: Test results from this visit will be discussed in further detail at your follow- up appointment, if applicable. Please Follow Up With: Milan Galicia DO - 2 weeks
[2019-06-15 08:20] VITALS: BP 110/57; PULSE 64; RESP 18; TEMP 36.7; O2SAT 97
[2019-06-15 08:30] VITALS: PULSE 60
--- NOTE | 2019-06-15 08:50 | CASEMGMT ---
Addendum entered by Berenice Nunez 06/15/19 11:38: RN updated this worker that pt spoke with her son and and pt and family are agreeable to [facility] at discharge. NEO placed a call to Vivi with [facility] and left her a message that pt is agreeable to RU and will be discharged to RU today. Addendum entered by Berenice Nunez 06/15/19 11:35: SW received a call from Vivi with [facility] stating pt informed Dr. Matute that she was undecided if she wanted to go to [facility] at discharge. SW met with pt, SW introduced self and role at [facility]. Pt is alert and orientated x4. Pt states that she is waiting for her son to call her back as her son will be staying with her at discharge and also wanted to talk to her . SW informed pt that RU is very short term and that her insurance will pay for her to go. Pt asked about going home with help. SW informed pt that HHC could be arranged but that HHC won't be everday where if pt went to [facility] she would get therapy everyday. Pt asked this worker to stop back in a little bit as she wants to talk to her son and again. Addendum entered by Berenice Nunez 06/15/19 10:26: SW received call from Vivi with [facility] stating pt is approved to discharge to [facility] today. Charge Nurse updated. Plan: RU today Original Note: Social Work Note Pt has discharge in. NEO placed a call to Vivi with [facility] and asked if pt is able to be discharged today. Vivi to speak with physician on RU to confirm if able to accept pt. NEO waiting for call back. Plan: [facility] today if accepted Berenice Nunez WATCH AND CLOCK MAKER AND REPAIRER, STORE CLERK CHECKER
[2019-06-15] MEDS: busPIRone 15 MG TABLET 7.5 MG PO (10:12)
[2019-06-15] MEDS: APIXABAN 2.5 MG TABLET PO (10:12)
[2019-06-15] MEDS: Famotidine 20 MG Tablet PO (10:12)
--- NOTE | 2019-06-15 10:55 | PCM.HP.STD ---
History of Present Illness Date of Admission: 06/15/19 Chief Complaint: DEBILITY The patient is a 73 year old F RIGHT handed female s/p left thr by dr weinberg yesterday 06/14/19. no complications, improved but has fatigue due to MG, lives at home with who is somewhat disabled as well. pt is otherwise funcitionally independent at [facility], admitted to rehab with goal of confucianism of functional independence. house one story with 2 steps. Past Medical History Past Medical History (Chronic Problems): Chronic Problems (Last Reviewed 05/11/19 @ 14:18 by Hua Willis) Tobacco abuse (Chronic) Anxiety (Chronic) Cervical disc disease (Chronic) HTN (hypertension) (Chronic) Medical History: Medical History (Last Reviewed 05/11/19 @ 14:18 by Hua Willis) Tobacco abuse (Chronic) Z72.0 Anxiety (Chronic) F41.9 Bilateral pneumonia (Acute) J18.9 organism unknown Septic shock (Acute) A41.9, R65.21 Atrial fibrillation (Acute) I48.91 converted to sinus Suspected pulmonary embolism (Acute) I26.99 below knee dvt (Acute) does not require anticoagulation-left mid calf Acute hypoxemic respiratory failure (Acute) J96.01 Ptosis (Acute) H02.409 Cervical disc disease (Chronic) M50.90 Neck pain (Acute) M54.2 Atrial fibrillation with RVR (Acute) I48.91 HTN (hypertension) (Chronic) I10 Myasthenia gravis G70.00 suspected myasthenia gravis (Inactive) Allergies No Known Allergies Allergy (Verified 05/31/19 09:39) Home Medications: Ambulatory Orders Medication Instructions Recorded Metoprolol Tartrate [Lopressor 25 mg PO 1200,2300 08/12/17 (beta aleksey)] busPIRone [Buspar] 7.5 mg PO BID 08/12/17 albuterol sulfate HFA 90 2 puff INHALATION Q6H PRN 07/13/18 mcg/actuation aerosol inhaler mycophenolate mofetil 500 mg tablet 750 mg PO 1200,2300 07/13/18 levothyroxine 25 mcg tablet 25 mcg PO DAILY #90 tab 05/11/19 Cholecalciferol (Vitamin D3) 5,000 unit PO DAILY 05/31/19 [Vitamin D3] Lisinopril 20 mg PO LUNCH 05/31/19 Pyridostigmine [place] [Mestinon] 60 mg PO Q6 05/31/19 Acetaminophen [Tylenol] 1,000 mg PO Q8 tab 06/15/19 Apixaban [Eliquis] 2.5 mg PO BID tab 06/15/19 Oxycodone [Oxyir] 5 - 10 mg PO Q4H PRN PRN 7 Days 06/15/19 #60 tab Surgical History: Surgical History (Last Reviewed 06/15/19 @ 10:58 by Alverto Matute MD) History of bilateral tubal ligation Z98.51 History of dilatation and curettage Z98.890 History of hip replacement Z96.649 History of knee replacement procedure of right knee Z96.651 Surgical History: total hip arthroplasty - Right., total knee arthroplasty - Right., - Psychiatric History: Anxiety BRIDAL STYLIST SALES CONSULTANT History: No pertinent BRIDAL STYLIST SALES CONSULTANT history Smoking Status: Current every day smoker Tobacco Use: Cigarettes - *Family History Maternal Family History: Family History (Last Reviewed 07/15/18 @ 13:53 by Margaret Tam) Father Myocardial infarction, Onset Age: 44 History Items: - - lung cancer Paternal Family History: Family History (Last Reviewed 07/15/18 @ 13:53 by Margaret Tam) Father Myocardial infarction, Onset Age: 44 History Items: Heart Disease, - - heart attack in father at age 44 Review of Systems Constitutional: Denies: Chills, Fever, Weight Change HEENT: Denies: Head Aches, Sinus Congestion, Sinus Drainage Cardiovascular: Denies: Chest Pain, Palpitations Respiratory: Denies: Cough, Shortness of breath at rest, Sputum production Gastrointestinal: Denies: Abdominal Pain, Nausea, Vomiting Genitourinary: Denies: Dysuria Musculoskeletal: Reports: Joint Pain, Joint Tenderness Skin: Denies: Rash, Wounds Neurological: Denies: Numbness, Tingling, Focal weakness Psychiatric: Denies: Anxiety, Depression, Homicidal Ideations, Suicidal Ideations Hematologic/ Lymphatic: Denies: Easy Bruising, Easy Bleeding VTE Information - Inpt Only VTE Present on Admission: Yes VTE Pharm Prophylaxis ordered?: Yes - Physical Exam General: Alert, Oriented x3, Cooperative HEENT: Atraumatic, PERRLA, EOMI, Normocephalic Neck: Supple, No JVD, Negative Carotid Bruits Lungs: Clear to auscultation, Normal air movement Cardiovascular: Regular rate, No murmurs Abdomen: Bowel Sounds Present, Soft, Non Tender Extremities: No edema, Capillary Refill Less than 3 Seconds Skin: No rashes, No breakdown Musculoskeletal: No Tenderness to Palpation of Joints or Extremities Neurological: Cranial nerves II-XII grossly intact Psych/Mental Status: Normal Affect, Appropriate Vital Signs Temp Pulse Resp BP Pulse Ox 36.7 C 60 18 110/57 L 97 06/15/19 08:20 06/15/19 08:30 06/15/19 08:20 06/15/19 08:20 06/15/19 08:20 Oxygen Flow Rate (L/min) 6 Oxygen Delivery Method Room Air Weight: 83.6 kg Body Mass Index (BMI) 33.1 Finger Stick Blood Glucose 122 Intake and Output for Last 24 Hours 06/13/19 06/14/19 06/15/19 23:59 23:59 23:59 Intake Total 4315 / 4315 710 / 710 Output Total 500 / 500 550 / 550 Balance 3815 / 3815 160 / 160 Laboratory Tests Past 24 Hrs 06/15/19 06/15/19 05:38 05:38 WBC 8.5 RBC 3.52 L Hgb 10.6 L Hct 32.8 L MCV 93.2 MCH 30.1 MCHC 32.3 RDW Std Deviation 43.0 RDW Coeff of Swetha 12.5 Plt Count 148 L MPV 11.4 Sodium 141 Potassium 4.1 Chloride 111 H Carbon Dioxide 23.0 Anion Gap 7 BUN 21 H Creatinine 1.02 Estim Creat Clear Calc 38.27 Est GFR (MDRD) Af Amer 68 Est GFR (MDRD) Non-Af 56 L BUN/Creatinine Ratio 20.6 H Glucose 103 Calcium 9.0 Assessment/Plan All Active Problems (Last Reviewed 05/11/19 @ 14:18 by Hua Willis) Bilateral pneumonia (Acute) Septic shock (Acute) Atrial fibrillation (Acute) Suspected pulmonary embolism (Acute) below knee dvt (Acute) Acute hypoxemic respiratory failure (Acute) Ptosis (Acute) Neck pain (Acute) Atrial fibrillation with RVR (Acute) debility s/p left thr complicated by MG. goal of rehab is confucianism of previous level of functional independenc plan pt ot prn analgesics bowel protocol dvt prophylaxis cellcept/mestinon
--- NOTE | 2019-06-15 11:02 | REHABEVAL_ITS ---
Admission Information Status Changes from Prescreening?: No changes Identified Actual Problem List:: Pain, ALteration in Cmfrt, Alteration in Sleep, Mobility Impaired, Self Care Deficit, BP, Hypertension, Ineffect.D/C Plan r/t Psy Potential Problem List:: DVT, Bleeding, Infection, UTI, Aspiration, Falls, Skin Integrity, Depression Risk of Complications DVT: LMWH, SHAMEKA Hose, Sequential Compression Device Bleeding: Monitor Lab Values, Nursing to Teach Precautions for anti-coagulation therapy., Wound, if applicable, to be assessed every shift., Stroke patients assessed for lethargy or change in status. Infection: Clinical Staff to Monitor for S/S of infection:, S/S of infection include fever, redness, warmth, etc. Urinary Tract Infection: Monitor for frequency, burning, discomfort, or incontinence., Nursing will obtain urine sample for urinalysis and C&S when ordered. Aspiration: Clinical staff will monitor for coughing, drooling, congestion., Spe ech will evaluate swallowing and dsyphasia., Nursing will monitor patient swallowing during meals. Falls: Patient will be evaluated for Fall Precautions, Patient will be placed on Fall Precautions as indicated per protocol. Skin Breakdown: Nursing will assess skin daily using assessment tool., Nursing will place on Skin Breakdown Precautions as indicated. Pain: Clinical staff will assess patient's pain level per protocol., Medications will be given, if needed, and the pain level reassessed., Other methods: Massage, distraction, decrease stimulus, etc. used PRN. Plan of Care Patient requires physician specializing in physical medicine and rehab oversight to provide close medical supervision of rehab issues including: Pain Management, Sleep Problems, Bowel and Bladder, Medical and co-morbidity Management, DVT prophylaxis, Rehabilitation Leadership, Coordination of treatment team Patient needs Physical Therapy: For a minimum of 1 hour, At least 5 out of 7 days Patient needs Physical Therapy to improve:: Mobility, Mobility, Mobility, Strengthening, Transfers, Stretching, ROM, Endurance, Stairs, Gait, Balance Patient needs Occupational Therapy: For a minimum of 1 hour, At least 5 out of 7 days Patient needs Occupational Therapy to improve ADL's incl.: Eating, Grooming, Bathing, Dressing, Toileting, Toilet transfers, Community Reintegration, Higher functioning activities, Household tasks, Adaptive Equipment, Splinting, Other activities as determined Patient requires 24/ Rehabilitation Nursing for: Pain Issues, Identifying and preventing risk factors, Monitoring and reporting current medical conditions, Assisting with ambulation, transfer, and all ADL's, Teaching patients about disease process and medications, Family teaching, Providing safe environment, Bowel and Bladder Issues, Skin integrity, Medication Management Patient needs Power Plant Operations Manager/ Case Management for: Discharge Planning, Arranging Home Equipment or Services, Family Interventions Patient needs Dietary and Nutrition Services for: Adequate Nutrition, Nutritional Supplements, Nutritional Education Goals Patient will remain: free from falls, or injury at time of discharge. Patient will perform bed mobility at: MOD I level of assist. Patient will complete transfers from bed to chair at: MOD I level of assist. Patient will ambulate: 100 feet, with MOD I assist, with LRD Patient will complete upper body dressing at: MOD I level of assist. Patient will complete lower body dressing at: MOD I level of assist. Patient will complete toileting at: MOD I level of assist. Patient will perform bathing at: MOD I level of assist. Patient will complete grooming at: MOD I level of assist. Patient will complete home management skills at: MOD I level of assist. Patient will achieve: 12 stairs, at MOD I assist Patient will have pain level of: of 3 or less Patient's skin will: remain intact, free from infection. Patient will receive: adequate nutrition.
[2019-06-15 12:00] VITALS: PULSE 60
[2019-06-15] MEDS: Metoprolol Tartrate 25 MG Tablet PO (12:00)
[2019-06-15] MEDS: Mycophenolate Mofetil 250 MG Capsule 750 MG PO (12:00)
[2019-06-15] MEDS: Lisinopril 20 MG Tablet PO (12:00)
[2019-06-15] MEDS: Mycophenolate Mofetil 250 MG Capsule PO (12:00)
[2019-06-15 12:55] VITALS: BP 108/52; PULSE 67; RESP 18; TEMP 36.7; O2SAT 100
[2019-06-22 15:07] LABS: ACHR AB Modulating 49 % (0-20); ACHR Recep AB, Blocking 48 % (0-25); Acetylcholine Receptor Binding 3.87 nmol/L (0.00-0.24)
== END 2019-06-15 13:15 | DRG 470 ==
PROVIDERS: Anesthesiology; Psychiatry & Neurology Neurology; Admitting Provider Orthopaedic Surgery; Family Provider Nurse Practitioner; PCP Nurse Practitioner; Referring Provider Orthopaedic Surgery; Visit Provider Orthopaedic Surgery
PROC: 0SRB0JZ Replacement of Left Hip Joint with Synthetic Substitute, Open Approach (ICD-10-PCS; CPT 27130; principal; 2019-06-14 07:05)
DX: M16.12 Unilateral primary osteoarthritis, left hip (principal); G70.00 Myasthenia gravis without (acute) exacerbation; I10 Essential (primary) hypertension; F17.210 Nicotine dependence, cigarettes, uncomplicated
CPT/HCPCS: 36415; 73502; 80048; 82962; 83519; 84238; 84443; 85027; 87081; 93005; 97110; 97163; 97166; 97530; 99406; C1713; C1776; J7120; A4216; J2405

== ENCOUNTER 2019-06-15 13:20 | Inpatient (IN) | payer MEDICARE, OTHER, SELFPAY ==
[2019-06-14 11:49] VITALS: BMI 33.1
[2019-06-15 13:44] VITALS: BP 103/56; PULSE 62; RESP 16; TEMP 37; O2SAT 95; BMI 35.3
--- NOTE | 2019-06-15 14:30 | PCM.PN.HOSP ---
Subjective: Patient is a 73-year-old female with past medical history as listed. She was admitted to the rehab floor on 06/15/2019 after she had left total hip replacement done on 06/14/2019 for degenerative disc disease. Hospitalist service was consulted for medical management. Patient seen and examined. Today's postop day 1. SHe has no complaints. Pain is well controlled. SHe is worried about her at home because she is his primary caregiver, and is worried about who will be taking care of him now. Review of systems otherwise negative. Labs and vitals reviewed. rider ticket worker informed about patient's concerns about the care of her at home. Vitals/I&O's: Vital Signs Temp Pulse Resp BP Pulse Ox 98.6 F 62 16 103/56 L 95 06/15/19 13:44 06/15/19 13:44 06/15/19 13:44 06/15/19 13:44 06/15/19 13:44 Oxygen Delivery Method Room Air Weight: 193 lb 3.2 oz Body Mass Index (BMI) 35.3 Finger Stick Blood Glucose 122 General: Alert, Oriented x3, Cooperative, No apparent distress HEENT: Atraumatic, PERRLA, EOMI, Normocephalic Oral: Moist Mucosa Neck: Supple, No JVD, Negative Carotid Bruits Lungs: Clear to auscultation, Normal air movement Cardiovascular: Regular rate, Regular Rhythm, Normal S1, Normal S2, No murmurs Abdomen: Bowel Sounds Present, Soft, Non Tender, Non-Distended, No Hepato-splenomegaly Extremities: No clubbing, No cyanosis, No edema, Capillary Refill Less than 3 Seconds Skin: No rashes, No breakdown Musculoskeletal: No Tenderness to Palpation of Joints or Extremities Lymphatic: No Cervical, Supraclavicular, or Inguinal Adenopathy Neurological: Cranial nerves II-XII grossly intact, Neuro grossly intact Psych/Mental Status: Normal Affect, Appropriate, Alert and oriented to time, place, person, mood and affect Current Medications Acetaminophen (Tylenol) 1,000 mg PO Q8 [facility] Albuterol Sulfate (Ventolin Hfa (Sp)) 2 puff INHALATION Q6H PRN PRN Reason: SOB &/OR WHEEZING Apixaban (Eliquis) 2.5 mg PO BID [facility] Bisacodyl (Dulcolax) 10 mg RECTAL .PRN X 1 PRN PRN Reason: Constipation Buspirone HCl (Buspar) 7.5 mg PO BID [facility] Cholecalciferol (Vitamin D) 5,000 unit PO DAILYCM [facility] Levothyroxine Sodium (Synthroid) 25 mcg PO DAILY@0600 [facility] Lisinopril (Zestril) 20 mg PO LUNCH [facility] Lorazepam (Ativan) 0.5 mg PO QHS PRN PRN PRN Reason: Insomnia Magnesium Hydroxide (Milk Of Magnesia) 30 ml PO .PRN X 1 PRN PRN Reason: Constipation Metoprolol Tartrate (Lopressor (Beta Birgit)) 25 mg PO 1200,2300 [facility] Mycophenolate Mofetil (Cellcept) 750 mg PO 1200,2300 [facility] Non-Formulary Medication (Pyridostigmine [place] [Mestinon]) 60 mg PO Q6 [facility] Oxycodone HCl (Oxyir) 5 - 10 mg PO Q4H PRN PRN PRN Reason: MOD-SEVERE PAIN (4-10/10) Senna/Docusate Sodium (Senokot-S, Rosmery-Colace) 2 tablet PO BID [facility] Medical Necessity - Tobacco Use Smoking Status: Current every day smoker Assessment/Plan All Active Problems (Last Reviewed 05/11/19 @ 14:18 by Hua Willis) Bilateral pneumonia (Acute) Septic shock (Acute) Atrial fibrillation (Acute) Suspected pulmonary embolism (Acute) below knee dvt (Acute) Acute hypoxemic respiratory failure (Acute) Ptosis (Acute) Neck pain (Acute) Atrial fibrillation with RVR (Acute) 1. Degenerative disc disease s/p left total hip replacement surgery done on 06/14/19; today is POD 1 pain well controlled On Tylenol and oxycodone for pain Incentive spirometry PT OT on board On Eliquis for DVT prophylaxis 2. Hypothyroidism: On Synthroid. 3. Hypertension: On lisinopril and metoprolol. 4. Atrial fibrillation: Rate controlled. On metoprolol. On Eliquis. 5. History of myasthenia gravis: Stable. On pyridostigmine. DVT prophylaxis: On Eliquis. Thank you for the courtesy of the consult. We will continue to follow with you. Code Visit Inpatient E&M: 73098 Subs Hosp L2
[2019-06-15 15:03] VITALS: BMI 35.3
[2019-06-15 15:40] VITALS: BP 103/56; PULSE 68; RESP 16; TEMP 37; O2SAT 95
[2019-06-15] MEDS: Acetaminophen 500 MG Tablet 1000 MG PO ×2 (16:25→22:26)
[2019-06-15] MEDS: Pyridostigmine Bromide 60 MG Tablet PO ×2 (17:29→23:47)
[2019-06-15 21:07] VITALS: BP 103/74; PULSE 66; RESP 16; TEMP 37.1; O2SAT 98
[2019-06-15] MEDS: oxyCODONE 5 MG Tablet PO (21:36)
[2019-06-15] MEDS: busPIRone 5 MG Tablet 7.5 MG PO (22:23)
[2019-06-15] MEDS: APIXABAN 2.5 MG TABLET PO (22:23)
[2019-06-15] MEDS: Mycophenolate Mofetil 250 MG Capsule 750 MG PO (22:26)
[2019-06-15 22:27] VITALS: PULSE 68
[2019-06-15] MEDS: Metoprolol Tartrate 25 MG Tablet PO (22:27)
--- NOTE | 2019-06-16 02:54 | NURSING ---
REVIEWED AND AGREE WITH SKATING RINK ICE MAKER' S FIM AND HANDOFF CHARTING.
[2019-06-16] MEDS: Levothyroxine 25 MCG TABLET PO (05:55)
[2019-06-16] MEDS: Pyridostigmine Bromide 60 MG Tablet PO ×4 (05:55→23:06)
[2019-06-16] MEDS: Acetaminophen 500 MG Tablet 1000 MG PO ×3 (05:58→21:08)
[2019-06-16 06:16] LABS: Absolute Lymphocyte Count 1.33 X10^3/uL (0.83-4.51); Absolute Neutrophil Count 4.7 X10^3/uL (2.0-7.7); Basophil# 0.04 X10^3/uL; Basophil% 0.6 % (0-1); Eosinophil# 0.13 X10^3/uL; Eosinophils% 1.8 % (0-5); Hematocrit 31.1 % (37-47); Hemoglobin 10.1 g/dL (12.0-15.0); Lymphocyte # 1.33 X10^3/ul (4.0); Lymphocyte % 18.4 % (19-41); Mean Corp Hgb Conc 32.5 g/dL (32-36); Mean Corpuscular Hgb 30.4 pg (27.0-32.0); Mean Corpuscular Volume 93.7 fL (81-99); Mean Platelet Vol. 11.7 fl (6.2-12.0); Monocyte# 1.01 X10^3/uL; NRBC Flagged by Analyzer 0 % (0-5); Neutrophil % 64.8 % (47-70); Platelet Count 127 K/mm3 (150-450); RBC Distribution Width CV 12.8 % (11.6-14.6); RBC Distribution Width SD 44.1 fl (35.1-43.9); Red Blood Count 3.32 M/mm3 (4.2-5.4); White Blood Count 7.2 K/mm3 (4.4-11.0)
[2019-06-16 06:28] LABS: Anion Gap 6 (5-15); BUN 16 mg/dL (7-18); BUN/Creat Ratio 22.6 RATIO (10-20); Calcium,Total 8.9 mg/dL (8.5-10.1); Chloride 112 mmol/L (98-107); Creatinine, Serum 0.71 mg/dL (0.55-1.02); EST Glomerular Filtration Rate 86 mL/min (>60); Est Glom Filt Rate - Afr Amer 104 mL/min (>60); Estimated Creatinine Clearance 39.04 ml/min; Glucose 95 mg/dL (74-106); Sodium Level 142 mmol/L (136-145)
[2019-06-16 07:00] VITALS: BP 139/70; PULSE 68; RESP 18; TEMP 36.6; O2SAT 96
--- NOTE | 2019-06-16 07:15 | CPS ---
PATIENT REFUSES TO DO AN INCENTIVE. STATES SHE HAS TWO AT HOME AND SHE KNOWS HOW TO DO THEM. PT INSTRUCTED TO DO DEEP BREATHING EXERCISES IN WHICH SHE IS IN AGREEMENT TO DO.
[2019-06-16] MEDS: busPIRone 5 MG Tablet 7.5 MG PO ×2 (08:20→21:06)
[2019-06-16] MEDS: APIXABAN 2.5 MG TABLET PO ×2 (08:20→21:08)
--- NOTE | 2019-06-16 10:41 | PCM.PN.HOSP ---
Subjective: Doing well today, seen while in therapy. States that her pain is fairly well controlled. Vitals/I&O's: Vital Signs Temp Pulse Resp BP Pulse Ox 97.9 F 68 18 139/70 H 96 06/16/19 07:00 06/16/19 07:00 06/16/19 07:00 06/16/19 07:00 06/16/19 07:00 Oxygen Delivery Method Room Air Weight: 193 lb 3.2 oz Body Mass Index (BMI) 35.3 Finger Stick Blood Glucose 122 Intake and Output for Last 24 Hours 06/14/19 06/15/19 06/16/19 23:59 23:59 23:59 Intake Total 240 / 240 Balance 240 / 240 General: Alert, Oriented x3, Cooperative, No apparent distress HEENT: Atraumatic, PERRLA, EOMI, Normocephalic Oral: Moist Mucosa Neck: Supple, No JVD Lungs: Clear to auscultation, Normal air movement, No rhonchi, No wheeze, No rales, Diminished Cardiovascular: Regular rate, Regular Rhythm, Normal S1, Normal S2, No murmurs Abdomen: Soft, Non Tender, Non-Distended, No Hepato-splenomegaly Extremities: No edema, Capillary Refill Less than 3 Seconds Skin: Incision - Dressing intact, clean, dry Neurological: Neuro grossly intact, Sensory exam intact to light touch and pain Psych/Mental Status: Normal Affect, Appropriate Laboratory Results 06/16/19 05:50: Sodium 142, Potassium 4.0, Chloride 112 H, Carbon Dioxide 24.0, Anion Gap 6, BUN 16, Creatinine 0.71, Estim Creat Clear Calc 39.04, Est GFR (MDRD) Af Amer 104, Est GFR (MDRD) Non-Af 86, BUN/Creatinine Ratio 22.6 H, Glucose 95, Calcium 8.9 06/16/19 05:50: WBC 7.2, RBC 3.32 L, Hgb 10.1 L, Hct 31.1 L, MCV 93.7, MCH 30.4, MCHC 32.5, RDW Std Deviation 44.1 H, RDW Coeff of Wsetha 12.8, Plt Count 127 L, MPV 11.7, Immature Gran % (Auto) 0.400, Neut % (Auto) 64.8, Lymph % (Auto) 18.4 L, [place] % (Auto) 14.0 H, Eos % (Auto) 1.8, Baso % (Auto) 0.6, Absolute Neuts (auto) 4.7, Absolute Lymphs (auto) 1.33, Nucleated RBC % 0 Current Medications Acetaminophen (Tylenol) 1,000 mg PO Q8 [facility] Last Admin: 06/16/19 05:58 Dose: 1,000 mg Documented by: Albuterol Sulfate (Ventolin Hfa (Sp)) 2 puff INHALATION Q6H PRN PRN Reason: SOB &/OR WHEEZING Apixaban (Eliquis) 2.5 mg PO BID [facility] Last Admin: 06/16/19 08:20 Dose: 2.5 mg Documented by: Bisacodyl (Dulcolax) 10 mg RECTAL .PRN X 1 PRN PRN Reason: Constipation Buspirone HCl (Buspar) 7.5 mg PO BID [facility] Last Admin: 06/16/19 08:20 Dose: 7.5 mg Documented by: Cholecalciferol (Vitamin D) 5,000 unit PO DAILYCM [facility] Last Admin: 06/16/19 08:19 Dose: 5,000 unit Documented by: Levothyroxine Sodium (Synthroid) 25 mcg PO DAILY@0600 [facility] Last Admin: 06/16/19 05:55 Dose: 25 mcg Documented by: Lisinopril (Zestril) 20 mg PO LUNCH [facility] Lorazepam (Ativan) 0.5 mg PO QHS PRN PRN PRN Reason: Insomnia Magnesium Hydroxide (Milk Of Magnesia) 30 ml PO .PRN X 1 PRN PRN Reason: Constipation Metoprolol Tartrate (Lopressor (Beta Birgit)) 25 mg PO 1200,2300 [facility] Last Admin: 06/15/19 22:27 Dose: 25 mg Documented by: Mycophenolate Mofetil (Cellcept) 750 mg PO 1200,2300 [facility] Last Admin: 06/15/19 22:26 Dose: 750 mg Documented by: Oxycodone HCl (Oxyir) 5 - 10 mg PO Q4H PRN PRN PRN Reason: MOD-SEVERE PAIN (4-10/10) Last Admin: 06/15/19 21:36 Dose: 10 mg Documented by: Pyridostigmine [place] (Mestinon) 60 mg PO Q6 [facility] Last Admin: 08/08/19 05:55 Dose: 60 mg Documented by: Senna/Docusate Sodium (Senokot-S, Rosmery-Colace) 2 tablet PO BID [facility] Last Admin: 06/16/19 08:24 Dose: Not Given Documented by: Medical Necessity - Tobacco Use Smoking Status: Current every day smoker Tobacco Use: Cigarettes Assessment/Plan All Active Problems (Last Reviewed 05/11/19 @ 14:18 by Hua Willis) Bilateral pneumonia (Acute) Septic shock (Acute) Atrial fibrillation (Acute) Suspected pulmonary embolism (Acute) below knee dvt (Acute) Acute hypoxemic respiratory failure (Acute) Ptosis (Acute) Neck pain (Acute) Atrial fibrillation with RVR (Acute) 1. 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 Hypothyroidism -Stable -Continue with Synthroid 3. A. fib/HTN -Continue with Eliquis for anticoagulation -Heart rate and blood pressure are stable, continue with lisinopril and metoprolol 4. Myasthenia gravis -Currently stable -Continue with pyridostigmine and mycophenolate mofetil 5. Anxiety/depression -Stable -Continue with BuSpar -She does stressors at home because her is very dependent on her from his heart condition and his COPD DVT: Simone Code Visit Inpatient E&M: 41101 Subs Hosp L2
[2019-06-16 12:23] VITALS: PULSE 68
[2019-06-16] MEDS: Mycophenolate Mofetil 250 MG Capsule 750 MG PO ×2 (12:23→23:01)
[2019-06-16] MEDS: Metoprolol Tartrate 25 MG Tablet PO ×2 (12:23→23:05)
[2019-06-16] MEDS: Lisinopril 20 MG Tablet PO (12:23)
--- NOTE | 2019-06-16 12:40 | PN.NEURO_ITS ---
Subjective: Per nursing no issues overnight. Per patient, tolerating therapies well and pain is controlled. Denies further questions or concerns. - Physical Exam General: Alert, Oriented x3, Cooperative HEENT: Atraumatic, PERRLA Oral: Moist Mucosa Neck: Supple, No JVD Lungs: Clear to auscultation, Normal air movement Cardiovascular: Regular rate, Regular Rhythm Abdomen: Bowel Sounds Present, Soft, Non Tender Extremities: No clubbing, No cyanosis, - - mild to left hip Skin: Incision - drsg intact to left hip, moderate amt of serous sanguineous noted. Neurological: Cranial nerves II-XII grossly intact, Deep Tendon Reflexes 2+/4 and Symmetrical, Motor Exam 5/5 strength throughout Psych/Mental Status: Normal Affect, Appropriate, Alert and oriented to time, place, person, mood and affect Vital Signs Temp Pulse Resp BP Pulse Ox 97.9 F 68 18 139/70 H 96 06/16/19 07:00 06/16/19 12:23 06/16/19 07:00 06/16/19 07:00 06/16/19 07:00 Oxygen Delivery Method Room Air Weight: 87.634 kg Body Mass Index (BMI) 35.3 Finger Stick Blood Glucose 122 Intake and Output for Last 24 Hours 06/14/19 06/15/19 06/16/19 23:59 23:59 23:59 Intake Total 240 / 240 240 / 240 Balance 240 / 240 240 / 240 Laboratory Tests Past 24 Hrs 06/16/19 06/16/19 05:50 05:50 WBC 7.2 RBC 3.32 L Hgb 10.1 L Hct 31.1 L MCV 93.7 MCH 30.4 MCHC 32.5 RDW Std Deviation 44.1 H RDW Coeff of Swetha 12.8 Plt Count 127 L MPV 11.7 Immature Gran % (Auto) 0.400 Neut % (Auto) 64.8 Lymph % (Auto) 18.[address] [place] % (Auto) 14.0 H Eos % (Auto) 1.8 Baso % (Auto) 0.6 Absolute Neuts (auto) 4.7 Absolute Lymphs (auto) 1.33 Nucleated RBC % 0 Sodium 142 Potassium 4.0 Chloride 112 H Carbon Dioxide 24.0 Anion Gap 6 BUN 16 Creatinine 0.71 Estim Creat Clear Calc 39.04 Est GFR (MDRD) Af Amer 104 Est GFR (MDRD) Non-Af 86 BUN/Creatinine Ratio 22.6 H Glucose 95 Calcium 8.9 Medical Necessity - Tobacco Use Smoking Status: Current every day smoker Tobacco Use: Cigarettes Assessment/Plan All Active Problems (Last Reviewed 05/11/19 @ 14:18 by Hua Willis) Bilateral pneumonia (Acute) Septic shock (Acute) Atrial fibrillation (Acute) Suspected pulmonary embolism (Acute) below knee dvt (Acute) Acute hypoxemic respiratory failure (Acute) Ptosis (Acute) Neck pain (Acute) Atrial fibrillation with RVR (Acute) The patient is a 73 year old with PMH of MG, Atrial fibrillation, HTN, Anxiety, depression, and hypothyroidism who presented to [facility] on 06/15/19 for debility secondary to left total hip arthroplasty with a goal of returning home at or ne ar her prior level of independence. Patient had a Left total hip arthroplasty on 06/24/[address] Galicia due to left hip DDJ. No complications with post-op course. Patient l lives in a one level house with 2 steps to enter with who is somewhat disabled as well and is independent with all ADLs, mobility and drives short distances prior to admission. Plan - PT for mobility - OT for ADLs - Analgesics as needed - Left total hip arthroplasty [facility] care, brando as needed, d/c jeniffer on 06/28/2019 - Atrrial fibrillation on lopressor - HTN on lopressor and lisinopril - Anxiety/depression on buspar - MG on mestinon and cellcept - Hypothyroidism on levothyroxine - DVT prophylaxis on Eliquis x 2 weeks with last dose on 06/29/19, knee high ruth hose - Medical management by hospitalist - consult - Fall precautions - Bowel protocol - F/U with PCP, neurology and orthopedics
[2019-06-16] MEDS: oxyCODONE 5 MG Tablet PO (13:55)
[2019-06-16 13:58] VITALS: O2SAT 97
[2019-06-16 19:25] VITALS: BP 124/67; PULSE 72; RESP 18; TEMP 36.8; O2SAT 95
[2019-06-16 22:00] VITALS: PULSE 72; RESP 18
[2019-06-16 23:05] VITALS: PULSE 72
[2019-06-17] MEDS: Pyridostigmine Bromide 60 MG Tablet PO ×4 (05:16→23:21)
[2019-06-17] MEDS: Acetaminophen 500 MG Tablet 1000 MG PO ×3 (05:16→21:32)
[2019-06-17] MEDS: Levothyroxine 25 MCG TABLET PO (05:17)
--- NOTE | 2019-06-17 05:56 | PCA ---
Pt. complained of lack of sleep this HS. Pt. repositioned into recliner for comfort. When staff attempted AM ADL's, pt. gruffly asked why she had to get up so early? Pt. stated she would prefer to get ready after breakfast to enable pt. to sleep longer. STILL RUNNER notified RN and this issue was discussed with pt. Staff will discuss with oncoming staff to perform ADL's.
--- NOTE | 2019-06-17 06:31 | NURSING ---
pt was resistant to a.m. ADLS this a.m. for staff. Pt c/o not sleeping well through the night, Pt requested getting ready after breakfast instead of before to enable more rest.
[2019-06-17 06:39] VITALS: O2SAT 96
[2019-06-17 07:03] VITALS: BP 138/86; PULSE 65; RESP 16; TEMP 36.4; O2SAT 96
[2019-06-17] MEDS: oxyCODONE 5 MG Tablet PO (07:29)
[2019-06-17] MEDS: busPIRone 5 MG Tablet 7.5 MG PO ×2 (07:30→21:32)
[2019-06-17] MEDS: APIXABAN 2.5 MG TABLET PO ×2 (07:30→21:32)
[2019-06-17] MEDS: Lisinopril 20 MG Tablet PO (12:03)
[2019-06-17] MEDS: Mycophenolate Mofetil 250 MG Capsule 750 MG PO ×2 (12:03→23:20)
[2019-06-17 12:05] VITALS: PULSE 72
[2019-06-17] MEDS: Metoprolol Tartrate 25 MG Tablet PO ×2 (12:05→23:20)
[2019-06-17 22:00] VITALS: BP 152/73; PULSE 72; RESP 16; TEMP 36.9; O2SAT 97
[2019-06-17 23:20] VITALS: PULSE 72
[2019-06-18] MEDS: Acetaminophen 500 MG Tablet 1000 MG PO ×3 (05:50→20:40)
[2019-06-18] MEDS: Levothyroxine 25 MCG TABLET PO (05:50)
[2019-06-18] MEDS: Pyridostigmine Bromide 60 MG Tablet PO ×4 (05:50→23:29)
--- NOTE | 2019-06-18 06:18 | NURSING ---
Pt refused am care at this time. pt requested that she do ADLs with OT later today. pt toileted and dressing changed without difficulty.
[2019-06-18 08:10] VITALS: BP 130/65; PULSE 69; RESP 18; TEMP 36.7; O2SAT 95
[2019-06-18] MEDS: APIXABAN 2.5 MG TABLET PO ×2 (09:22→20:41)
[2019-06-18] MEDS: busPIRone 5 MG Tablet 7.5 MG PO ×2 (09:23→20:41)
[2019-06-18] MEDS: Senna/Docusate Sodium 1 Tablet 2 TABLET PO (09:25)
[2019-06-18 10:50] VITALS: O2SAT 95
[2019-06-18] MEDS: Mycophenolate Mofetil 250 MG Capsule 750 MG PO ×2 (13:10→23:29)
[2019-06-18 13:11] VITALS: BP 119/75; PULSE 77
[2019-06-18] MEDS: Metoprolol Tartrate 25 MG Tablet PO ×2 (13:11→23:29)
[2019-06-18] MEDS: Lisinopril 20 MG Tablet PO (13:13)
[2019-06-18 23:28] VITALS: BP 136/73; PULSE 63; RESP 18; TEMP 37; O2SAT 96
[2019-06-18 23:29] VITALS: PULSE 63
--- NOTE | 2019-06-19 01:24 | NURSING ---
Reviewed and agree with LPNs fims and handoff
[2019-06-19] MEDS: oxyCODONE 5 MG Tablet PO (04:11)
[2019-06-19] MEDS: Pyridostigmine Bromide 60 MG Tablet PO ×3 (06:10→17:29)
[2019-06-19] MEDS: Acetaminophen 500 MG Tablet 1000 MG PO ×3 (06:10→21:34)
[2019-06-19] MEDS: Levothyroxine 25 MCG TABLET PO (06:10)
[2019-06-19] MEDS: busPIRone 5 MG Tablet 7.5 MG PO ×2 (08:24→21:35)
[2019-06-19] MEDS: APIXABAN 2.5 MG TABLET PO ×2 (08:28→21:34)
[2019-06-19 08:31] VITALS: BP 101/75; PULSE 72; RESP 18; TEMP 36.7; O2SAT 96
[2019-06-19] MEDS: Mycophenolate Mofetil 250 MG Capsule 750 MG PO (11:54)
[2019-06-19 11:58] VITALS: BP 112/70; PULSE 74
[2019-06-19] MEDS: Metoprolol Tartrate 25 MG Tablet PO (11:58)
[2019-06-19] MEDS: Lisinopril 20 MG Tablet PO (11:58)
--- NOTE | 2019-06-19 13:59 | PN_ITS ---
Subjective: Doing well, feels comfortable to go home Vitals/I&O's: Vital Signs Temp Pulse Resp BP Pulse Ox 98.1 F 74 18 112/70 96 06/19/19 08:31 06/19/19 11:58 06/19/19 08:31 06/19/19 11:58 06/19/19 08:31 Oxygen Delivery Method Room Air Weight: 190 lb 15.783 oz Body Mass Index (BMI) 35.3 Finger Stick Blood Glucose 122 Intake and Output for Last 24 Hours 06/17/19 06/18/19 06/19/19 23:59 23:59 23:59 Intake Total 780 / 780 360 / 360 Balance 780 / 780 360 / 360 General: Alert, Oriented x3, Cooperative, No apparent distress HEENT: Atraumatic, PERRLA, EOMI, Normocephalic Oral: Moist Mucosa Neck: Supple, No JVD Lungs: Clear to auscultation, Normal air movement, No rhonchi, No wheeze, No rales, Diminished Cardiovascular: Regular rate, Regular Rhythm, Normal S1, Normal S2, No murmurs Abdomen: Soft, Non Tender, Non-Distended, No Hepato-splenomegaly Extremities: No edema, Capillary Refill Less than 3 Seconds Skin: Incision - Dressing intact, clean, dry Neurological: Neuro grossly intact, Sensory exam intact to light touch and pain Psych/Mental Status: Normal Affect, Appropriate Current Medications Acetaminophen (Tylenol) 1,000 mg PO Q8 [facility] Last Admin: 06/19/19 13:41 Dose: 1,000 mg Documented by: Albuterol Sulfate (Ventolin Hfa (Sp)) 2 puff INHALATION Q6H PRN PRN Reason: SOB &/OR WHEEZING Apixaban (Eliquis) 2.5 mg PO BID [facility] Stop: 06/29/19 22:01 Last Admin: 06/19/19 08:28 Dose: 2.5 mg Documented by: Bisacodyl (Dulcolax) 10 mg RECTAL .PRN X 1 PRN PRN Reason: Constipation Buspirone HCl (Buspar) 7.5 mg PO BID [facility] Last Admin: 06/19/19 08:24 Dose: 7.5 mg Documented by: Cholecalciferol (Vitamin D) [facility] Last Admin: 06/19/19 08:27 Dose: 5,000 unit Documented by: Levothyroxine Sodium (Synthroid) 25 mcg PO DAILY@0600 [facility] Last Admin: 06/19/19 06:10 Dose: 25 mcg Documented by: Lisinopril (Zestril) 20 mg PO LUNCH [facility] Last Admin: 06/19/19 11:58 Dose: 20 mg Documented by: Lorazepam (Ativan) 0.5 mg PO QHS PRN PRN PRN Reason: Insomnia Magnesium Hydroxide (Milk Of Magnesia) 30 ml PO .PRN X 1 PRN PRN Reason: Constipation Metoprolol Tartrate (Lopressor (Beta Birgit)) 25 mg PO 1200,2300 [facility] Last Admin: 06/19/19 11:58 Dose: 25 mg Documented by: Mycophenolate Mofetil (Cellcept) 750 mg PO 1200,2300 [facility] Last Admin: 06/19/19 11:54 Dose: 750 mg Documented by: Oxycodone HCl (Oxyir) 5 - 10 mg PO Q4H PRN PRN PRN Reason: MOD-SEVERE PAIN (4-08/18) Last Admin: 06/19/19 04:11 Dose: 5 mg Documented by: Pyridostigmine [place] (Mestinon) 60 mg PO Q6 [facility] Last Admin: 06/19/19 11:54 Dose: 60 mg Documented by: Senna/Docusate Sodium (Senokot-S, Rosmery-Colace) 2 tablet PO BID [facility] Last Admin: 06/19/19 08:28 Dose: Not Given Documented by: Medical Necessity - Tobacco Use Smoking Status: Current every day smoker Tobacco Use: Cigarettes Assessment/Plan All Active Problems (Last Reviewed 05/11/19 @ 14:18 by Hua Willis) Bilateral pneumonia (Acute) Septic shock (Acute) Atrial fibrillation (Acute) Suspected pulmonary embolism (Acute) below knee dvt (Acute) Acute hypoxemic respiratory failure (Acute) Ptosis (Acute) Neck pain (Acute) Atrial fibrillation with RVR (Acute) 1. 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 Hypothyroidism -Stable -Continue with Synthroid 3. A. fib/HTN -Continue with Eliquis for anticoagulation -Heart rate and blood pressure are stable, continue with lisinopril and metoprolol 4. Myasthenia gravis -Currently stable -Continue with pyridostigmine and mycophenolate mofetil 5. Anxiety/depression -Stable -Continue with BuSpar -She does stressors at home because her is very dependent on her from his heart condition and his COPD DVT: Simone Code Visit Inpatient E&M: 73780 Subs Hosp L2
--- NOTE | 2019-06-19 16:54 | NURSING ---
pt ambulated x1 assist with wheeled walker x2 laps around hallways. Tolerated well.
--- NOTE | 2019-06-19 18:35 | NURSING ---
Reviewed and agree with MAIL MESSENGER's FIMS and charting
[2019-06-19 21:00] VITALS: PULSE 76; RESP 16; O2SAT 95
[2019-06-19] MEDS: LORazepam 0.5 MG Tablet PO (21:35)
[2019-06-19 22:00] VITALS: BP 129/50; PULSE 76; RESP 16; TEMP 37.1; O2SAT 95
[2019-06-20] MEDS: Pyridostigmine Bromide 60 MG Tablet PO ×5 (00:10→21:43)
[2019-06-20 00:15] VITALS: BP 145/68; PULSE 69
[2019-06-20] MEDS: Metoprolol Tartrate 25 MG Tablet PO ×3 (00:15→21:42)
[2019-06-20] MEDS: Mycophenolate Mofetil 250 MG Capsule 750 MG PO ×3 (00:15→21:41)
[2019-06-20] MEDS: oxyCODONE 5 MG Tablet PO ×2 (02:02→17:28)
[2019-06-20] MEDS: Levothyroxine 25 MCG TABLET PO (06:41)
[2019-06-20] MEDS: Acetaminophen 500 MG Tablet 1000 MG PO ×3 (06:41→21:41)
[2019-06-20 08:08] VITALS: BP 136/75; PULSE 74; RESP 16; TEMP 36.3; O2SAT 95
[2019-06-20] MEDS: APIXABAN 2.5 MG TABLET PO ×2 (08:08→21:40)
[2019-06-20] MEDS: busPIRone 5 MG Tablet 7.5 MG PO ×2 (08:08→21:40)
[2019-06-20] MEDS: Senna/Docusate Sodium 1 Tablet 2 TABLET PO (08:09)
--- NOTE | 2019-06-20 09:20 | PCM.PN.NEU ---
Subjective: Staffed meeting today. Further therapy details per PT/OT/ notes. All questions answered. Discussed going home 06/21/19 with outpatient PT. - Physical Exam General: Alert, Oriented x3, Cooperative HEENT: Atraumatic, PERRLA Oral: Moist Mucosa Neck: Supple, No JVD Lungs: Clear to auscultation, Normal air movement Cardiovascular: Regular rate, Regular Rhythm Abdomen: Bowel Sounds Present, Soft, Non Tender Extremities: No clubbing, No cyanosis, No edema Skin: Incision - jeniffer intact to left hip, without redness or drng Neurological: Cranial nerves II-XII grossly intact, Deep Tendon Reflexes 2+/4 and Symmetrical, Motor Exam 5/5 strength throughout Psych/Mental Status: Normal Affect, Appropriate, Alert and oriented to time, place, person, mood and affect Vital Signs Temp Pulse Resp BP Pulse Ox 97.4 F L 74 16 136/75 H 95 06/20/19 08:08 06/20/19 08:08 06/20/19 08:08 06/20/19 08:08 06/20/19 08:08 Oxygen Delivery Method Room Air Weight: 86.63 kg Body Mass Index (BMI) 35.3 Finger Stick Blood Glucose 122 Intake and Output for Last 24 Hours 06/18/19 06/19/19 06/20/19 23:59 23:59 23:59 Intake Total 360 / 360 Balance 360 / 360 Medical Necessity - Tobacco Use Smoking Status: Current every day smoker Tobacco Use: Cigarettes Assessment/Plan All Active Problems (Last Reviewed 05/11/19 @ 14:18 by Hua Willis) Bilateral pneumonia (Acute) Septic shock (Acute) Atrial fibrillation (Acute) Suspected pulmonary embolism (Acute) below knee dvt (Acute) Acute hypoxemic respiratory failure (Acute) Ptosis (Acute) Neck pain (Acute) Atrial fibrillation with RVR (Acute) The patient is a 73 year old with PMH of MG, Atrial fibrillation, HTN, Anxiety, depression, and hypothyroidism who presented to [facility] on 06/15/19 for debility secondary to left total hip arthroplasty with a goal of returning home at or near her prior level of independence. Patient had a Left total hip arthroplasty on 06/24/[address] Galicia due to left hip DDJ. No complications with post-op course. Patient l lives in a one level house with 2 steps to enter with who is somewhat disabled as well and is independent with all ADLs, mobility and drives short distances prior to admission. Plan - PT for mobility - OT for ADLs - Analgesics as needed - Left total hip arthroplasty polar care, drsg as needed, d/c jeniffer on 06/28/2019 - Atrrial fibrillation on lopressor - HTN on lopressor and lisinopril - Anxiety/depression on buspar - MG on mestinon and cellcept - Hypothyroidism on levothyroxine - DVT prophylaxis on Eliquis x 2 weeks with last dose on 06/29/19, knee high urth hose - Medical management by hospitalist - consult - Fall precautions - Bowel protocol - F/U with PCP, neurology, cardiology and orthopedics d/c home with outpatient PT on 06/21/19
--- NOTE | 2019-06-20 12:18 | CASEMGMT ---
Social Work IDT met with patient for Team Meeting. Discussed patient progressing well with therapy. Pt following hip precautions, is SBA with FWW and steps, sup. with ADLS. Pt requesting to discharge home tomorrow as she is primary caregiver for . Although, son does live with pt and - he works out of town on trips, but is home for this week assisting. is able to drive. Pt agreeable to [facility] - scheduled first PT session for 06/21 at 6 pm. Referred to [facility] for FWW. Plan: DC home 06/21 with outpatient PT and FWW. Lynnette Pastor, BRODY MOTION PICTURE NARRATOR
[2019-06-20 13:15] VITALS: BP 136/75; PULSE 71
[2019-06-20] MEDS: Lisinopril 20 MG Tablet PO (13:15)
--- NOTE | 2019-06-20 13:39 | PN_ITS ---
Subjective: follow up hip replacement Feeling well. Ready to go home to resume care for her . Eating well. Vitals/I&O's: Vital Signs Temp Pulse Resp BP Pulse Ox 36.3 C L 71 16 136/75 H 95 06/20/19 08:08 06/20/19 13:15 06/20/19 08:08 06/20/19 13:15 06/20/19 08:08 Oxygen Delivery Method Room Air Weight: 86.63 kg Body Mass Index (BMI) 35.3 Finger Stick Blood Glucose 122 Intake and Output for Last 24 Hours 06/18/19 06/19/19 06/20/19 23:59 23:59 23:59 Intake Total 360 / 360 Balance 360 / 360 General: Alert, No apparent distress HEENT: Atraumatic, Normocephalic Oral: Moist Mucosa, No Gingival or Mucosal Lesions/ Ulcerations Neck: No Nodes, Thyroid Normal Size and Texture Lungs: Clear to auscultation, Normal air movement, No rhonchi, No wheeze, No rales Cardiovascular: Regular rate, Regular Rhythm, Normal S1, Normal S2, No murmurs Abdomen: Bowel Sounds Present, Soft, Non Tender, Non-Distended, No Hepato- splenomegaly Extremities: No edema, No Calf Tenderness Skin: No rashes, No breakdown Musculoskeletal: No Tenderness to Palpation of Joints or Extremities, No Muscle Wasting Psych/Mental Status: Normal Affect, Appropriate Current Medications Acetaminophen (Tylenol) 1,000 mg PO Q8 [facility] Last Admin: 06/20/19 13:17 Dose: 1,000 mg Documented by: Albuterol Sulfate (Ventolin Hfa (Sp)) 2 puff INHALATION Q6H PRN PRN Reason: SOB &/OR WHEEZING Apixaban (Eliquis) 2.5 mg PO BID [facility] Stop: 06/29/19 22:01 Last Admin: 06/20/19 08:08 Dose: 2.5 mg Documented by: Bisacodyl (Dulcolax) 10 mg RECTAL .PRN X 1 PRN PRN Reason: Constipation Buspirone HCl (Buspar) 7.5 mg PO BID [facility] Last Admin: 06/20/19 08:08 Dose: 7.5 mg Documented by: Cholecalciferol ([facility]itamin [facility]) [facility] Last Admin: 06/20/19 08:09 Dose: 5,000 unit Documented by: Levothyroxine Sodium (Synthroid) 25 mcg PO DAILY@0600 [facility] Last Admin: 06/20/19 06:41 Dose: 25 mcg Documented by: Lisinopril (Zestril) 20 mg PO LUNCH [facility] Last Admin: 06/20/19 13:15 Dose: 20 mg Documented by: Lorazepam (Ativan) 0.5 mg PO QHS PRN PRN PRN Reason: Insomnia Last Admin: 06/19/19 21:35 Dose: 0.5 mg Documented by: Magnesium Hydroxide (Milk Of Magnesia) 30 ml PO .PRN X 1 PRN PRN Reason: Constipation Metoprolol Tartrate (Lopressor (Beta Birgit)) 25 mg PO 1200,2300 [facility] Last Admin: 06/20/19 13:15 Dose: 25 mg Documented by: Mycophenolate Mofetil (Cellcept) 750 mg PO 1200,2300 [facility] Last Admin: 06/20/19 13:15 Dose: 750 mg Documented by: Oxycodone HCl (Oxyir) 5 - 10 mg PO Q4H PRN PRN PRN Reason: MOD-SEVERE PAIN (4-10/10) Last Admin: 06/20/19 02:02 Dose: 5 mg Documented by: Pyridostigmine [place] (Mestinon) 60 mg PO Q6 [facility] Last Admin: 06/20/19 13:15 Dose: 60 mg Documented by: Senna/Docusate Sodium (Senokot-S, Rosmery-Colace) 2 tablet PO BID [facility] Last Admin: 06/20/19 08:09 Dose: 1 tablet Documented by: Medical Necessity - Tobacco Use Smoking Status: Current every day smoker Tobacco Use: Cigarettes Assessment/Plan 1. S/P left hip replacement * performed on 06/14 * follow up with Dr. Oreilly as outpt. * outpt therapy to be arranged 2. VTE prophylaxis: rivaroxoban through 06/29 Code Visit Inpatient E&M: [id number] [facility] H[facility] L2
[2019-06-20 19:22] VITALS: BP 115/64; PULSE 74; RESP 16; TEMP 36.4; O2SAT 94
[2019-06-20 21:30] VITALS: PULSE 74; RESP 16; O2SAT 94
[2019-06-20 21:42] VITALS: BP 115/64; PULSE 74
--- NOTE | 2019-06-20 21:45 | NURSING ---
pt requested to have all her medications at 2145 instead of waking her up at 2300 and 0000. rn aware
--- NOTE | 2019-06-21 03:54 | NURSING ---
Reviewed and agree with CASING MIXER documentation and FIMs charting.
[2019-06-21] MEDS: Acetaminophen 500 MG Tablet 1000 MG PO (06:12)
[2019-06-21] MEDS: Levothyroxine 25 MCG TABLET PO (06:12)
[2019-06-21] MEDS: Pyridostigmine Bromide 60 MG Tablet PO ×2 (06:13→12:08)
[2019-06-21] MEDS: busPIRone 5 MG Tablet 7.5 MG PO (08:19)
[2019-06-21] MEDS: APIXABAN 2.5 MG TABLET PO (08:19)
[2019-06-21 08:25] VITALS: BP 126/66; PULSE 70; RESP 16; TEMP 36.6; O2SAT 97
--- NOTE | 2019-06-21 09:24 | DCINST_ITS ---
- Discharge Diagnoses Reason(s) for Visit for Discharge Instructions: Debility secondary to Left total hip arthroplasty You will use the following diet at home:: No restrictions, Regular Your food should be the consistency of: Regular Your liquids should be the consistency of: Regular/Thin Discharge Activity: Return to Normal Activity, May Not Drive, May Shower, Use Walker Weight Bearing Status: Weight bearing as tolerated Call your doctor if your incision/area has: Continuous Slow Oozing, Sudden Increased Bleeding, Increased Pain/ Swelling, Increased Redness, Foul Smelling Discharge, Swelling at the incision site Call your doctor if you observe: Fever of 101 or Higher, Coldness, Increased Pain, Numbness or Tingling, Change in Color, Inability to urinate, Inability to have a bowel movement, Shortness of breath, Dizziness, Fainting spells, Swelling in the ankles, Chest pain, Prolonged hiccoughing, Increased palpitations (irregular heartbeat), Calf discomfort, Uncontrolled pain Cleanse incision/area with: Soap & Water Additional Instructions: Last dose of eliquis will be on 06/29/2019 at bedtime Allergies/Adverse Reactions: Allergies No Known Allergies Allergy (Verified 05/31/19 09:39) Medications to take at Discharge albuterol sulfate HFA 90 mcg/actuation aerosol inhaler 2 puff INHALATION Q6H PRN 07/13/18 Acetaminophen [Tylenol] 1,000 mg PO Q8 tab 06/21/19 Apixaban [Eliquis] 2.5 mg PO BID #17 tab 06/21/19 Cholecalciferol (VIT D3) [Vitamin D3] 5,000 unit PO DAILYCM tab 06/21/19 Levothyroxine [Synthroid] 25 mcg PO DAILY@0600 tab 06/21/19 Lisinopril [Zestril] 20 mg PO LUNCH tab 06/21/19 Metoprolol Tartrate [Lopressor (beta aleksey)] 25 mg PO 1200,2300 tab 06/21/19 Mycophenolate Mofetil [Cellcept] 750 mg PO 1200,2300 cap 06/21/19 Oxycodone [Oxyir] 5 - 10 mg PO Q6H PRN PRN #40 tab 06/21/19 Pyridostigmine [place] [Mestinon] 60 mg PO Q6 tab 06/21/19 busPIRone [Buspar] 7.5 mg PO BID tab 06/21/19 The following prescriptions were given: Apixaban [Eliquis] 2.5 mg PO BID #17 tab Transmission Status: Received by [facility] Oxycodone [Oxyir] 5 - 10 mg PO Q6H PRN PRN #40 tab PRN Reason: Mod-Severe Pain (4-1010) Transmission Status: Received by [facility] Primary Care Physician: Radha Casanova, NHAN-C [Primary Care Provider] - Test Results: Test results from this visit will be discussed in further detail at your follow- up appointment, if applicable. Please Follow Up With: Radha Casanova When: 08/23/19 @ 2:15 pm Please Follow Up With: Janiya RICHARDS - Neurology When: 10/13/19 @ 2:00 pm Please Follow Up With: Dr. Grayson Smyth to be removed at appt When: 06/27/19 @ 1:50 pm Please Follow Up With: [facility] When: 06/21/19 @ 6:00 pm Please Follow Up With: Dr. Springer When: 08/11/2019 @ 2:30pm Proposed Discharge Date: 06/21/19
--- NOTE | 2019-06-21 09:29 | DS.PCM_ITS ---
Rehab Discharge Summary DATE OF ADMISSION: 06/15/19 DATE OF DISCHARGE: 06/21/19 - Rehab Diagnosis Debility secondary to Left total hip arthroplasty Subjective: Per nursing, no issues overnight. Patient will be discharge home today with Outpatient PT. Patient denies further questions or concerns. - Physical Exam General: Alert, Oriented x3, Cooperative HEENT: Atraumatic, PERRLA Oral: Moist Mucosa Neck: Supple, No JVD Lungs: Clear to auscultation, Normal air movement Cardiovascular: Regular rate, Regular Rhythm Abdomen: Bowel Sounds Present, Soft, Non Tender Extremities: No clubbing, No cyanosis, No edema Skin: Incision - jeniffer intact to left hip, without redness or drng Neurological: Cranial nerves II-XII grossly intact, Deep Tendon Reflexes 2+/4 and Symmetrical, Motor Exam 5/5 strength throughout Psych/Mental Status: Normal Affect, Appropriate, Alert and oriented to time, place, person, mood and affect Vital Signs Temp Pulse Resp BP Pulse Ox 97.6 F L 74 16 115/64 94 06/20/19 19:22 06/20/19 21:42 06/20/19 21:30 06/20/19 21:42 06/20/19 21:30 Oxygen Delivery Method Room Air Weight: 86.63 kg Body Mass Index (BMI) 35.3 Finger Stick Blood Glucose 122 Intake and Output for Last 24 Hours 06/19/19 06/20/19 06/21/19 23:59 23:59 23:59 Intake Total 400 / 400 Balance 400 / 400 Discharge Activity: Return to Normal Activity, May Not Drive, May Shower, Use Walker Weight Bearing Status: Weight bearing as tolerated Call your doctor if your incision/area has: Continuous Slow Oozing, Sudden Increased Bleeding, Increased Pain/ Swelling, Increased Redness, Foul Smelling Discharge, Swelling at the incision site Call your doctor if you observe: Fever of 101 or Higher, Coldness, Increased Pain, Numbness or Tingling, Change in Color, Inability to urinate, Inability to have a bowel movement, Shortness of breath, Dizziness, Fainting spells, Swelling in the ankles, Chest pain, Prolonged hiccoughing, Increased palpitations (irregular heartbeat), Calf discomfort, Uncontrolled pain Cleanse incision/area with: Soap & Water Home Medications: Medications to take at Discharge albuterol sulfate HFA 90 mcg/actuation aerosol inhaler 2 puff INHALATION Q6H PRN 07/13/18 Acetaminophen [Tylenol] 1,000 mg PO Q8 tab 06/21/19 Apixaban [Eliquis] 2.5 mg PO BID #17 tab 06/21/19 Cholecalciferol (VIT D3) [Vitamin D3] 5,000 unit PO DAILYCM tab 06/21/19 Levothyroxine [Synthroid] 25 mcg PO DAILY@0600 tab 06/21/19 Lisinopril [Zestril] 20 mg PO LUNCH tab 06/21/19 Metoprolol Tartrate [Lopressor (beta aleksey)] 25 mg PO 1200,2300 tab 06/21/19 Mycophenolate Mofetil [Cellcept] 750 mg PO 1200,2300 cap 06/21/19 Oxycodone [Oxyir] 5 - 10 mg PO Q6H PRN PRN #40 tab 06/21/19 Pyridostigmine [place] [Mestinon] 60 mg PO Q6 tab 06/21/19 busPIRone [Buspar] 7.5 mg PO BID tab 06/21/19 Following Prescrptions Were Given to Patient: Apixaban [Eliquis] 2.5 mg PO BID #17 tab Transmission Status: Received by [facility] Oxycodone [Oxyir] 5 - 10 mg PO Q6H PRN PRN #40 tab PRN Reason: Mod-Severe Pain (4-10/10) Transmission Status: Received by [facility] Primary Care Physician: Radha Casanova, NHAN-C [Primary Care Provider] - Please Follow Up With: Radha Casanova When: 08/23/19 @ 2:15 pm Please Follow Up With: Janiya RICHARDS - Neurology When: 10/13/19 @ 2:00 pm Please Follow Up With: Dr[facility] Grayson Smyth [facility] When: 06/27/19 @ 1:50 pm Please Follow Up With: [facility] When: 06/21/19 @ 6:00 pm Rehab Course The patient is a 73 year old with PMH of MG, Atrial fibrillation, HTN, Anxiety, depression, and hypothyroidism who presented to [facility] on 06/15/19 for debility secondary to left total hip arthroplasty with a goal of returning home at or near her prior level of independence. Patient had a Left total hip arthroplasty on 06/24/[address] Galicia due to left hip DDJ. No complications with post-op course. Patient l lives in a one level house with 2 steps to enter with who is somewhat disabled as well and is independent with all ADLs, mobility and drives short distances prior to admission. IP RU course was uncomplicated. [place] intact to left hip incision, without redness or drainage, no s/sx of infection noted. Patient will continue Eliquis 2.5 mg for DVT prophylaxis with last dose on 06/29/2019 at bedtime for a total of 14 days post-op. Patient tolerated therapies well and increased her strength and mobility to return home with spouse with outpatient PT today on 06/21/2019. Patient to f/u with PCP, Neurology in regards to her MG, Cardiology for Atrial fibrillation last visit was in July 2018 and anticoagulation was not required at that time per office, and Dr. Galicia on 06/28/2019, which jeniffer [facility] be [facility] at [facility]. Meaningful Use Info Meaningful Use Diagnoses (Choose all that apply): None applicable
[2019-06-21 12:08] VITALS: PULSE 70
[2019-06-21] MEDS: Lisinopril 20 MG Tablet PO (12:08)
[2019-06-21] MEDS: Metoprolol Tartrate 25 MG Tablet PO (12:08)
[2019-06-21] MEDS: Mycophenolate Mofetil 250 MG Capsule 750 MG PO (12:08)
[2019-06-21 12:35] VITALS: BP 126/66; PULSE 70; RESP 16; TEMP 36.6; O2SAT 97
--- NOTE | 2019-06-21 12:35 | NURSING ---
Discharged to home at this time, verbalized understanding to discharge instruct given.
== END 2019-06-21 12:35 | disposition home or self-care (01) | DRG 561 ==
PROVIDERS: Nurse Practitioner Family; Admitting Provider Psychiatry & Neurology Neurology; Family Provider Nurse Practitioner; PCP Nurse Practitioner; Referring Provider Psychiatry & Neurology Neurology
DX: Z47.1 Aftercare following joint replacement surgery (principal); Z96.642 Presence of left artificial hip joint; F41.9 Anxiety disorder, unspecified; I10 Essential (primary) hypertension; I48.91 Unspecified atrial fibrillation; G70.00 Myasthenia gravis without (acute) exacerbation; Z86.718 Personal history of other venous thrombosis and embolism; F17.210 Nicotine dependence, cigarettes, uncomplicated; E03.9 Hypothyroidism, unspecified; F32.9 Major depressive disorder, single episode, unspecified
CPT/HCPCS: 36415; 80048; 85025; 97110; 97116; 97162; 97166; 97530; 97533; 97535; 97802; 99406

== ENCOUNTER 2019-07-21 16:30 | Outpatient (RCR) | payer MEDICARE, OTHER, SELFPAY ==
--- NOTE | 2019-06-21 18:43 | HP.PTEVAL ---
Patient's Visit Information JAVIER STANFORD is a 73 year old F referred to Physical Therapy by MARTHA BatesC with a diagnosis of s/p L DREW. Date of Evaluation: 06/21/19 Physical Therapist: Saw Valdez, LIANET, OCS, CSCS - Visit Plan Frequency: 2x /Week Duration: 4-6 Weeks Plan: 2x/week for 4-6 weeks for: L hip ROM within precautions. L hip strength and general strength and gait training. Work toward gym program for [employer] when doing well. Steps. Incision management if needed. ice. Hip precautions in effect and patient knows these precautions. - Subjective Findings: R hip replaced 2 yrs ago. L one was hurting adn had PT but wore out adn needed hip replacement on 06/14 last Thursday lateral incision. REhab until today and now home with who is disabled and son. brought her today. Lives in one story with two steps enter adn did OK today with rail. Pain level is 2/10 today, was up to 6/10 this week and 7/10 prior to surgery. Using wh walker all the time since surgery. had cane prior to surgery. Dr. Keith did her surgery. No falls since last year. Precautions related not above 90 degrees, not rotating hip and not to cross legs. Sleep is OK at the rehab center. Slept well last night, wasn't used to bed. At least 5 hours. Not employed. Spends day keeping house clean but unable right now. Also enjoys shoppign and cannot do that right now. HEP: HS, AP, glut squeezes, QS, SLR. Dressed self today with increased time. showered yesterday with therapist adn will spnge bath until ready. - Pain L hip anterior Pain Intensity (Out of 10): 0 Pain Intensity Range: 0, 6 - Objective Pt ambulates with wh walker antalgic on L, without AD has very short uncomfortable L stance time and short R step. safe to stand without walker with good balance. Tasnfers slowly to/fro supine but I obeying precautions. Sit to stand is I with UE. steps are using R and two rails to ascend adn using r two rails to descend. R hip AROM WFL as is knee and ankle. L knee and ankle aROM WNL adn painfree. L hip ROM 15 abd, 80 flexion, neutral ext, rotations not tested today. strength in L hip 3/5 able to SLR with knee bent only. R hip 4+/5. Knee strength 4+ B. ankles 4+ B. reflexes 2/3 patella and achilles. Sensation LE WNL to gross light touch. Incision is lateral and jeniffer in place, not excessively red or swollen, soft supple tissue around incision for the most part. - Goals Goal 1:: Patient able to ambulate community distances without AD with 24/30 FGA balance. Goal Time Frame: 4-6 Weeks Goal 2:: Patient reciprocate on steps with one rail without pain. Goal Time Frame: 4-6 Weeks Goal 3:: Patient I with dressing and basic ADLs at home without family assistance. Goal Time Frame: 4-6 Weeks Goal 4:: Pain 0/10 and back to 90% of activities Goal Time Frame: 4-6 Weeks - Rehabilitation Potential Physical Therapy Diagnosis: s/p L DREW Rehabilitation Potential: Fair - Anticipated Interventions Patient/Client Instruction: Educate patient on: Condition, Plan of Care, Risk Factors For the Purpose of:: To decrease pain, To improve muscle performance and motor function, To increase tolerance to activity/condition/position, To improve ability of physical actions for home/community/work/leisure Therapeutic Exercise to Include: Strength training, Flexibilty training, Gait and locomotor training, Passive ROM, Active ROM For the Purpose of:: To decrease pain, To increase ROM, To improve muscle performance and motor function, To improve performance and independence with ADL's, To improve ability of physical actions for home/community/work/leisure, To improve gait and locomotor functions Manual Therapy Techniques to Include: Scar massage For the Purpose of:: To increase ROM Cryotherapy (ice pack, ice massage): Yes For the Purpose of:: To decrease swelling/inflammation Thank you for the opportunity to evaluate your patient. For Medicare and Medicare HMO plans, please review the plan of care and approve it. It will need to be FAXED BACK to us at [phone] for Medicare purposes. For Medicare only, by signing this I certify the plan of care. Please let me know if there are questions or concerns regarding this plan of care. Physician Signature: Date:
--- NOTE | 2019-07-21 17:22 | HP.PTREVAL ---
Janiya Head, NHAN-C, It has been my pleasure to treat JAVIER STANFORD over the last 8 visits for s/p L DREW. Please see the progress note below for an update on the physical therapy plan of care! Subjective: Feeling pretty good. Much better. Started using cane last couple days and mostly on walker. Sleeping OK but toss and turns due to hip if lies on it. Has to keep moving. To doctor on Thursday for x rays. Activities are getting better, still not taking out trash and hauling it to road, not mopping floors or running sweeper. Does dishes and cooks and gets dressed and laundry on own. Has a couple steps with railing and cane to go up steps. Thinks she can do HEP and be fine from here on out. Used cane prior to surgery adn expects to. Uses seat in the shower adn is OK with that. Objective/Function: Walks without AD I on firm flat surface today. Safer with cane. Steps reciprocally with rail with cues without pain. No gait deviations today with ambulation. OVERALL DOING VERY WELL AND PROGRESSING NICELY TOWARD GOALS. WILL CONTINUE VIA HEP AND CALL IF CONCERNS OR PLAN NEEDS TO CHANGE. Plan Plan: PT TO DO HEP AND F/U IN 3 WEEKS TO CHECK STEPS, GAIT,FGA AND HEP FOR PROGRESSION NEED. Goals Goal 1:: Patient able to ambulate community distances without AD with 24/30 FGA balance. Goal Time Frame: 4-6 Weeks Goal Progress: needs cane Goal 2:: Patient reciprocate on steps with one rail without pain. Goal Time Frame: 4-6 Weeks Goal Progress: HESITANTLY. Goal 3:: Patient I with dressing and basic ADLs at home without family assistance. Goal Time Frame: 4-6 Weeks Goal Progress: Goal Met Goal 4:: Pain 0/10 and back to 90% of activities Goal Time Frame: 4-6 Weeks Goal Progress: Progressing Anticipated Interventions Patient/Client Instruction: Educate patient on: Condition, Plan of Care, Risk Factors For the Purpose of:: To decrease pain, To improve muscle performance and motor function, To increase tolerance to activity/condition/position, To improve ability of physical actions for home/community/work/leisure Therapeutic Exercise to Include: Strength training, Flexibilty training, Gait and locomotor training, Passive ROM, Active ROM For the Purpose of:: To decrease pain, To increase ROM, To improve muscle performance and motor function, To improve performance and independence with ADL's, To improve ability of physical actions for home/community/work/leisure, To improve gait and locomotor functions Manual Therapy Techniques to Include: Scar massage For the Purpose of:: To increase ROM Cryotherapy (ice pack, ice massage): Yes For the Purpose of:: To decrease swelling/inflammation Please do not hesitate to contact me at [phone] by phone or if you have questions or concerns regarding this new plan of care! Sincerely, Saw Valdez, DPT, OCS, CSCS
--- NOTE | 2019-09-16 14:44 | HP.PT.NRP ---
HP - Discharge Summary (1) - Patient Information JAVIER STANFORD was seen in my office for initial evaluation on 06/21/19. The following Plan of Care was established for this patient: Initial Frequency: 2x /Week Initial Duration: 4-6 Weeks - Anticipated Interventions Patient/Client Instruction: Educate patient on: Condition, Plan of Care, Risk Factors For the Purpose of:: To decrease pain, To improve muscle performance and motor function, To increase tolerance to activity/condition/position, To improve ability of physical actions for home/community/work/leisure Therapeutic Exercise to Include: Strength training, Flexibilty training, Gait and locomotor training, Passive ROM, Active ROM For the Purpose of:: To decrease pain, To increase ROM, To improve muscle performance and motor function, To improve performance and independence with ADL's, To improve ability of physical actions for home/community/work/leisure, To improve gait and locomotor functions Manual Therapy Techniques to Include: Scar massage For the Purpose of:: To increase ROM Cryotherapy (ice pack, ice massage): Yes For the Purpose of:: To decrease swelling/inflammation This patient was last seen in our office 07/21/19. Pertinent comments regarding their Physical therapy will appear below: Pt seen for 8 visits of plan of care and was 75% better. She was to exercise at home adn f/u three weeks later but neglected to attend or schedule this follow up. At this point, it has been almost two months and I will discontinue due to nonattendance. At this point I will be discontinuing this patient from physical therapy. I would be happy to see this patient again in the future if found appropriate by the physician. Thank you! Saw Valdez, DPT, OCS, CSCS
== END 2019-07-21 19:00 | disposition home or self-care (01) ==
LOC: PT 16:30
PROVIDERS: Family Provider Nurse Practitioner; PCP Nurse Practitioner; Referring Provider Nurse Practitioner Family; Visit Provider Nurse Practitioner Family
DX: S72.001D Fracture of unspecified part of neck of right femur, subsequent encounter for closed fracture with routine healing (principal); Z98.890 Other specified postprocedural states
CPT/HCPCS: 97110; 97116; 97162; 97530

== ENCOUNTER → 2019-07-25 14:18 | Outpatient (CLI) | payer MEDICARE, OTHER, SELFPAY ==
[2019-07-25 14:19] VITALS: BMI 35.3
--- NOTE | 2019-07-25 14:20 | RAD_ITS ---
STUDY: X-RAY - PELVIS AND RIGHT HIP REASON FOR EXAM: Female, 73 years old. Postop TECHNIQUE: 3 views of the pelvis and hip. COMPARISON: June 14, 2019 FINDINGS: Bilateral hip prostheses are noted in anatomic alignment and position. No evidence for acute hip or pelvic fractures.. Postsurgical changes in the pelvis bilaterally RAD/HIP, UNI W/ Pelvis 2-3 Views IMPRESSION: Stable appearance to bilateral hip prostheses Electronically Signed: Ty Abreu MD at 22:08 EDT , Service support ,
== END ==
PROVIDERS: Family Provider Nurse Practitioner; PCP Nurse Practitioner; Referring Provider Orthopaedic Surgery; Visit Provider Orthopaedic Surgery
DX: S72.001A Fracture of unspecified part of neck of right femur, initial encounter for closed fracture (principal)
CPT/HCPCS: 73502

== ENCOUNTER → 2023-02-25 | Outpatient (CLI) | payer MEDICARE, OTHER, SELFPAY ==
--- NOTE | 2023-02-25 14:32 | CT_ITS ---
STUDY: CT CHEST WITHOUT CONTRAST- LOW DOSE SCREENING PROTOCOL REASON FOR EXAM: Female, 77 years old. Tobacco abuse pack per year history. No current symptoms of lung cancer or pulmonary infection. Shared decision-making with referring PCP documented in patient''s record. RADIATION DOSAGE (If Supplied By Facility): CTDIvol = ( 3.02 ) mGy, DLP = ( 103.82 ) mGycm TECHNIQUE: Low dose screening CT examination performed from the base of the neck to the upper abdomen. Sagittal and coronal reformatted images performed. Sagittal and coronal MIP images provided. The measurements provided are average, rounded measurements per ACR guidelines. Individualized dose optimization techniques were used for this CT. COMPARISON: None. FINDINGS: 6 mm benign perifissural nodule in the right major fissure. There are emphysematous changes of the lungs. There is no demonstrated pleural abnormality. Normal heart and pericardium. There are calcifications of the coronary arteries. Normal mediastinum. Normal hilar regions. Normal unenhanced pulmonary arteries. There is atherosclerotic calcification of the aortic arch with tortuosity and elongation of the aortic arch and descending thoracic aorta. There are multi-level degenerative changes of the thoracic spine. There is no demonstrated abnormality of the visualized upper abdomen. CT/Low Dose CT Lung Screening IMPRESSION: No significant indeterminate incidental findings requiring additional imaging. ASSESSMENT CATEGORY: LUNG-RADS 1: Negative. Continue annual screening with LDCT in 12 months. Electronically Signed: Benjamin Samson MD at 17:48 EDT ,
--- NOTE | 2023-02-25 14:59 | BI_ITS ---
MAMMOGRAPHY - BILATERAL SCREENING REASON FOR EXAM: Female, 77 years old. Routine annual screening examination. PERTINENT HISTORY: Non-contributory. TECHNIQUE: Digital bilateral breast latrice (3D mammographic acquisition) in the CC and MLO projections. 2-D mediolateral oblique (MLO) and craniocaudad (CC) views of both breasts were obtained. CAD: Full Field Digital Mammography with Computer Added Detection was performed. COMPARISON: Comparison is made with prior study dated July 15, 2018 and September 23, 2016. FINDINGS: Breast Composition: The breasts are almost entirely fatty. There are no dominant masses or suspicious calcifications. Stable small benign-appearing left axillary lymph node. No other significant abnormalities are identified. There has been no significant change since the prior study. BI/SCRN MAMM (CAD)W/LATRICE BILAT IMPRESSION: Stable bilateral screening mammogram. Yearly follow-up mammogram recommended. (A) ASSESSMENT CATEGORY: BIRADS Category 2: Benign. A letter regarding these results will be sent to the patient by the facility within 30 days. Approximately 10% of breast cancers are not detected by mammography. A normal mammogram should not delay biopsy of a clinically suspicious abnormality. [id number] Electronically Signed: Stephen Marroquin MD at 15:43 EDT ,
== END | disposition home or self-care (01) ==
LOC: CT 14:31
PROVIDERS: PCP Nurse Practitioner Family; Referring Provider Nurse Practitioner Family; Visit Provider Nurse Practitioner Family
DX: Z12.31 Encounter for screening mammogram for malignant neoplasm of breast (principal); F17.210 Nicotine dependence, cigarettes, uncomplicated
CPT/HCPCS: 71271; 77063; 77067

== ENCOUNTER → 2023-04-22 | Outpatient (REF) | payer MEDICARE, OTHER, SELFPAY | LOC: OLS.SANC 05:00 | PROVIDERS: PCP Nurse Practitioner Family; Visit Provider Internal Medicine | DX: I48.91 Unspecified atrial fibrillation (principal); E11.9 Type 2 diabetes mellitus without complications | CPT/HCPCS: 36415; 80048; 85027 ==

== ENCOUNTER → 2023-05-27 | Outpatient (REF) | payer MEDICARE, SELFPAY | LOC: OLS.SANC 05:00 | PROVIDERS: PCP Nurse Practitioner Family; Visit Provider Internal Medicine | DX: I48.91 Unspecified atrial fibrillation (principal); E78.5 Hyperlipidemia, unspecified | CPT/HCPCS: 36415; 80048; 85027 ==

== ENCOUNTER → 2023-07-14 | Outpatient (CLI) | payer MEDICARE, OTHER, SELFPAY ==
--- NOTE | 2023-07-14 14:30 | RAD_ITS ---
INDICATION: inflammatory polyarthropathy -- OSTEOARTHRITIS EXAMINATION/TECHNIQUE: X-RAY - RIGHT XR Hand Min 3 Views 3 VIEWS COMPARISON: No relevant prior comparison study available FINDINGS: SOFT TISSUES: Mild soft tissue swelling throughout the hand without soft tissue gas. No radiopaque foreign body. BONES/JOINTS: No acute fracture or subluxation.. Radial angulation of the second digit distal phalanx. Diffuse joint space narrowing, most prominent at the first carpometacarpal joint, first metacarpophalangeal joint, and second and third distal interphalangeal joints.. There is a gull wing appearance at the second distal interphalangeal joint. Osteophytes seen throughout the interphalangeal joints. Prominent osteophytes with sclerosis at the first carpometacarpal joint. RAD/Hand Min 3 Views IMPRESSION: Diffuse arthritic changes throughout the hand as described above. 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 Electronically Signed: Gianni Tolentino MD at 22:30 EDT ,
--- NOTE | 2023-07-14 14:30 | RAD_ITS ---
INDICATION: inflammatory polyarthropathy -- OSTEOARTHRITIS EXAMINATION/TECHNIQUE: X-RAY - LEFT XR Hand Min 3 Views 3 VIEWS COMPARISON: No relevant prior comparison study available FINDINGS: SOFT TISSUES: Mild diffuse soft tissue swelling. No radiopaque foreign body. BONES/JOINTS: There is no fracture or dislocation. Slight ulnar angulation of the second digit distal phalanx. There is diffuse joint space narrowing, most severe at the second and third distal interphalangeal joints. Associated sclerosis with gull wing appearance at these digits. The remaining interphalangeal joints show small osteophytes. There is also severe first carpometacarpal joint space narrowing with sclerosis and prominent osteophytes. 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 Electronically Signed: Gianni Tolentino MD at 22:32 EDT ,
[2023-07-14 15:14] LABS: Absolute Lymphocyte Count 1.73 X10^3/uL (0.83-4.51); Absolute Neutrophil Count 5.2 X10^3/uL (2.0-7.7); Basophil# 0.06 X10^3/uL; Basophil% 0.8 % (0-1); Eosinophil# 0.07 X10^3/uL; Eosinophils% 0.9 % (0-5); Hematocrit 36.8 % (37-47); Hemoglobin 12.1 g/dL (12.0-15.0); Lymphocyte # 1.73 X10^3/ul (0.83-4.51); Lymphocyte % 21.9 % (19-41); Mean Corp Hgb Conc 32.9 g/dL (32-36); Mean Corpuscular Hgb 30.9 pg (27.0-32.0); Mean Corpuscular Volume 94.1 fL (81-99); Mean Platelet Vol. 11.6 fl (6.2-12.0); Monocyte# 0.81 X10^3/uL; Monocyte% 10.3 % (0-10); NRBC Flagged by Analyzer 0 % (0-5); Neutrophil # 5.21 X10^3/uL (2.7-7.7); Neutrophil % 65.8 % (47-70); Platelet Count 192 K/mm3 (150-450); RBC Distribution Width CV 14.2 % (11.6-14.6); RBC Distribution Width SD 48.2 fl (35.1-43.9); Red Blood Count 3.91 M/mm3 (4.2-5.4); White Blood Count 7.9 K/mm3 (4.4-11.0)
[2023-07-14 15:19] LABS: Absolute Lymphocyte Count 1.83 X10^3/uL (0.83-4.51); Absolute Neutrophil Count 5.1 X10^3/uL (2.0-7.7); Basophil# 0.06 X10^3/uL; Basophil% 0.8 % (0-1); Eosinophil# 0.08 X10^3/uL; Hematocrit 36.5 % (37-47); Hemoglobin 12.1 g/dL (12.0-15.0); Lymphocyte # 1.83 X10^3/ul (0.83-4.51); Lymphocyte % 23.3 % (19-41); Mean Corp Hgb Conc 33.2 g/dL (32-36); Mean Corpuscular Volume 93.6 fL (81-99); Mean Platelet Vol. 11.1 fl (6.2-12.0); Monocyte# 0.77 X10^3/uL; Monocyte% 9.8 % (0-10); NRBC Flagged by Analyzer 0 % (0-5); Neutrophil # 5.08 X10^3/uL (2.7-7.7); Neutrophil % 64.7 % (47-70); Platelet Count 192 K/mm3 (150-450); RBC Distribution Width CV 14.1 % (11.6-14.6); RBC Distribution Width SD 47.9 fl (35.1-43.9); White Blood Count 7.9 K/mm3 (4.4-11.0)
[2023-07-14 15:34] LABS: Erythrocyte Sedimentation Rate 12 mm/hr (0-30)
[2023-07-14 15:43] LABS: ALB/GLOB Ratio 1.2 RATIO (0.9-2.4); AST(SGOT) 12 U/L (15-37); Alanine Aminotransfer ALT/SGPT 27 U/L (13-56); Albumin, Serum 3.9 g/dL (3.2-5.0); Alkaline Phosphatase 67 U/L (45-117); Anion Gap 6 (5-15); BUN 25 mg/dL (7-18); BUN/Creat Ratio 27.8 RATIO (10-20); Calcium,Total 9.5 mg/dL (8.5-10.1); Chloride 112 mmol/L (98-107); EST Glomerular Filtration Rate 64 mL/min (>60); Est Glom Filt Rate - Afr Amer 78 mL/min (>60); Globulin 3.2 g/dL (2.2-4.2); Glucose 104 mg/dL (74-106); Protein, Total 7.1 g/dL (6.4-8.2); Sodium Level 139 mmol/L (136-145)
[2023-07-14 15:51] LABS: ALB/GLOB Ratio 1.3 RATIO (0.9-2.4); AST(SGOT) 14 U/L (15-37); Alanine Aminotransfer ALT/SGPT 28 U/L (13-56); Alkaline Phosphatase 66 U/L (45-117); Anion Gap 4 (5-15); BUN 25 mg/dL (7-18); BUN/Creat Ratio 28.8 RATIO (10-20); CRP < 2.90 mg/L (0.0-3.0); Calcium,Total 9.5 mg/dL (8.5-10.1); Chloride 113 mmol/L (98-107); Creatinine, Serum 0.87 mg/dL (0.55-1.02); EST Glomerular Filtration Rate 67 mL/min (>60); Est Glom Filt Rate - Afr Amer 81 mL/min (>60); Globulin 3.1 g/dL (2.2-4.2); Glucose 104 mg/dL (74-106); Protein, Total 7.1 g/dL (6.4-8.2); Rheumatoid Factor < 10.0 IU/mL (<15); Sodium Level 139 mmol/L (136-145)
[2023-07-14 16:22] LABS: Hepatitis B Surface Antibody Non-Reactive; Hepatitis B Surface Antigen Non-Reactive (Nonreactive); Hepatitis C Antibody Non-Reactive (Nonreactive)
[2023-07-16 12:09] LABS: CCP IgG Antibodies 5 units (0-19)
[2023-07-16 13:07] LABS: ANTINUCLEAR ANTIBODIES DIRECT Negative (Negative)
== END | disposition home or self-care (01) ==
LOC: LAB 13:54
PROVIDERS: PCP Nurse Practitioner Family; Referring Provider Psychiatry & Neurology Neurology; Visit Provider Internal Medicine Rheumatology
DX: M06.4 Inflammatory polyarthropathy (principal); G70.00 Myasthenia gravis without (acute) exacerbation; M19.041 Primary osteoarthritis, right hand; I10 Essential (primary) hypertension; E78.5 Hyperlipidemia, unspecified
CPT/HCPCS: 36415; 73130; 80053; 85025; 85652; 86038; 86140; 86200; 86431; 86706; 86803; 87340

== ENCOUNTER → 2023-09-14 | Outpatient (CLI) | payer MEDICARE, OTHER, SELFPAY ==
[2023-09-14 14:54] LABS: ALB/GLOB Ratio 1.3 RATIO (0.9-2.4); AST(SGOT) 9 U/L (15-37); Alanine Aminotransfer ALT/SGPT 15 U/L (13-56); Albumin, Serum 3.9 g/dL (3.2-5.0); Alkaline Phosphatase 69 U/L (45-117); Anion Gap 5 (5-15); BUN 30 mg/dL (7-18); BUN/Creat Ratio 31.8 RATIO (10-20); Calcium,Total 9.7 mg/dL (8.5-10.1); Chloride 112 mmol/L (98-107); Creatinine, Serum 0.94 mg/dL (0.55-1.02); EST Glomerular Filtration Rate 61 mL/min (>60); Est Glom Filt Rate - Afr Amer 74 mL/min (>60); Globulin 2.9 g/dL (2.2-4.2); Glucose 110 mg/dL (74-106); Potassium 4.4 mmol/L (3.5-5.1); Protein, Total 6.8 g/dL (6.4-8.2); Sodium Level 140 mmol/L (136-145)
[2023-09-14 15:46] LABS: Absolute Lymphocyte Count 1.39 X10^3/uL (0.83-4.51); Absolute Neutrophil Count 5.4 X10^3/uL (2.0-7.7); Basophil# 0.06 X10^3/uL; Basophil% 0.8 % (0-1); Eosinophil# 0.13 X10^3/uL; Eosinophils% 1.7 % (0-5); Hematocrit 42.2 % (37-47); Hemoglobin 12.4 g/dL (12.0-15.0); Lymphocyte # 1.39 X10^3/ul (0.83-4.51); Lymphocyte % 18.3 % (19-41); Mean Corp Hgb Conc 29.4 g/dL (32-36); Mean Corpuscular Hgb 31.2 pg (27.0-32.0); Mean Platelet Vol. 11.8 fl (6.2-12.0); Monocyte# 0.64 X10^3/uL; Monocyte% 8.4 % (0-10); NRBC Flagged by Analyzer 0 % (0-5); Neutrophil # 5.35 X10^3/uL (2.7-7.7); Neutrophil % 70.4 % (47-70); Platelet Count 187 K/mm3 (150-450); RBC Distribution Width CV 14.8 % (11.6-14.6); RBC Distribution Width SD 57.4 fl (35.1-43.9); Red Blood Count 3.98 M/mm3 (4.2-5.4); White Blood Count 7.6 K/mm3 (4.4-11.0)
== END | disposition home or self-care (01) ==
LOC: LAB 13:13
PROVIDERS: PCP Nurse Practitioner Family; Referring Provider Internal Medicine Rheumatology; Visit Provider Internal Medicine Rheumatology
DX: M06.4 Inflammatory polyarthropathy (principal); Z79.899 Other long term (current) drug therapy; M79.7 Fibromyalgia
CPT/HCPCS: 36415; 80053; 85025

== ENCOUNTER → 2023-11-16 | Outpatient (CLI) | payer MEDICARE, OTHER, SELFPAY ==
[2023-11-16 12:33] LABS: Absolute Lymphocyte Count 1.04 X10^3/uL (0.83-4.51); Absolute Neutrophil Count 4.5 X10^3/uL (2.0-7.7); Basophil# 0.06 X10^3/uL; Basophil% 0.9 % (0-1); Eosinophil# 0.09 X10^3/uL; Eosinophils% 1.4 % (0-5); Hematocrit 36.9 % (37-47); Hemoglobin 12.5 g/dL (12.0-15.0); Lymphocyte # 1.04 X10^3/ul (0.83-4.51); Lymphocyte % 16.4 % (19-41); Mean Corp Hgb Conc 33.9 g/dL (32-36); Mean Corpuscular Volume 100.3 fL (81-99); Mean Platelet Vol. 11.4 fl (6.2-12.0); Monocyte# 0.63 X10^3/uL; Monocyte% 9.9 % (0-10); NRBC Flagged by Analyzer 0 % (0-5); Neutrophil # 4.51 X10^3/uL (2.7-7.7); Neutrophil % 71.1 % (47-70); Platelet Count 157 K/mm3 (150-450); RBC Distribution Width CV 14.5 % (11.6-14.6); RBC Distribution Width SD 51.5 fl (35.1-43.9); Red Blood Count 3.68 M/mm3 (4.2-5.4); White Blood Count 6.4 K/mm3 (4.4-11.0)
[2023-11-16 13:56] LABS: ALB/GLOB Ratio 1.4 RATIO (0.9-2.4); AST(SGOT) 14 U/L (15-37); Alanine Aminotransfer ALT/SGPT 23 U/L (13-56); Alkaline Phosphatase 74 U/L (45-117); Anion Gap 7 (5-15); BUN 22 mg/dL (7-18); BUN/Creat Ratio 25.2 RATIO (10-20); Calcium,Total 9.9 mg/dL (8.5-10.1); Chloride 109 mmol/L (98-107); Cholesterol 196 mg/dL (200); Creatinine, Serum 0.87 mg/dL (0.55-1.02); EST Glomerular Filtration Rate 67 mL/min (>60); Est Glom Filt Rate - Afr Amer 81 mL/min (>60); Globulin 2.9 g/dL (2.2-4.2); Glucose 105 mg/dL (74-106); High Density Lipoprotein 52 mg/dL; Potassium 3.7 mmol/L (3.5-5.1); Protein, Total 6.9 g/dL (6.4-8.2); Sodium Level 138 mmol/L (136-145); Thyroid Stim Hormone (TSH) 3.81 uIU/mL (0.358-3.74); Triglycerides 106 mg/dL; Very Low Density Lipoprotein 21 mg/dL (5-40)
== END | disposition home or self-care (01) ==
LOC: MTLAB 11:17
PROVIDERS: PCP Nurse Practitioner Family; Referring Provider Internal Medicine Rheumatology; Visit Provider Internal Medicine Rheumatology
DX: M06.4 Inflammatory polyarthropathy (principal); G70.00 Myasthenia gravis without (acute) exacerbation; N18.31 Chronic kidney disease, stage 3a; Z79.899 Other long term (current) drug therapy; M79.7 Fibromyalgia; M19.041 Primary osteoarthritis, right hand; M47.892 Other spondylosis, cervical region; E03.9 Hypothyroidism, unspecified; F41.9 Anxiety disorder, unspecified; E78.2 Mixed hyperlipidemia; I12.9 Hypertensive chronic kidney disease with stage 1 through stage 4 chronic kidney disease, or unspecified chronic kidney disease
CPT/HCPCS: 36415; 80053; 80061; 84443; 85025

== ENCOUNTER → 2023-12-14 | Outpatient (CLI) | payer MEDICARE, OTHER, SELFPAY | END | disposition home or self-care (01) | PROVIDERS: PCP Nurse Practitioner Family; Visit Provider Obstetrics & Gynecology | DX: N89.8 Other specified noninflammatory disorders of vagina (principal) | CPT/HCPCS: 87070; 87077; 87186; 87205 ==

== ENCOUNTER 2023-12-21 16:45 | Emergency (ER) | payer MEDICARE, OTHER, SELFPAY ==
[2023-12-21] VITALS (12 sets, daily range): BP systolic 173–188; BP diastolic 74–97; PULSE 54–64; RESP 14–22; TEMP 36.5; O2SAT 94–99
--- NOTE | 2023-12-21 17:04 | EKG12_ITS ---
Test Reason : HYPERTENSION Blood Pressure : / mmHG Vent. Rate : 058 BPM Atrial Rate : 058 BPM P-R Int : 152 ms QRS Dur : 078 ms QT Int : 410 ms P-R-T Axes : 002 -32 023 degrees QTc Int : 402 ms Sinus bradycardia Left axis deviation Abnormal ECG Confirmed by Mick Reeder ([id number]), continuity editor KRYSTIAN MARQUEZ ([id number]) on 12/22/2023 9:28:44 AM Referred By: Confirmed By:Mick Reeder
--- NOTE | 2023-12-21 17:04 | EX.ED.DYSGE1 ---
HPI History of Present Illness Chief Complaint: Hypertension Detail of Chief Complaint: High blood pressure and generalized weakness Informant: patient Narrative Narrative: Patient presents to the emergency department complaint of hypotension and feeling generally weak. Patient states that she had a pessary placed a couple weeks ago and then developed an infection and she had her pessary removed and today had a follow-up appointment with [facility] Dr. Day who told her everything looked well. She had a blood pressure checked there and it was 190 systolic and patient felt she needed to come get evaluated. She just generally feels weak. She denies chest pain or shortness of breath. She denies abdominal pain. She denies dysuria urgency or frequency. She has had a cough for several months she states. Patient does have history of anxiety. She does have history of hypertension but states she is been compliant with her medications. [facility] Medical History Anxiety Bilateral pneumonia Cervical disc disease Essential hypertension Myasthenia gravis Paroxysmal atrial fibrillation Ptosis Tobacco abuse Home Medications buspirone 5 mg tablet 7.5 mg (1.5 x 5 mg) PO BID 06/21/19 [Rx Last Taken Unknown] cholecalciferol (vitamin D3) 25 mcg (1,000 unit) tablet 5,000 unit PO DAILYCM 06/21/19 [Rx Last Taken Unknown] levothyroxine 25 mcg tablet 25 mcg PO DAILY@0600 06/21/19 [Rx Last Taken Unknown] lisinopril 20 mg tablet 20 mg PO LUNCH 06/21/19 [Rx Last Taken Unknown] metoprolol tartrate 25 mg tablet 25 mg PO 1200,2300 06/21/19 [Rx Last Taken Unknown] alprazolam 0.5 mg tablet 0.5 mg PO QHS PRN 11/27/23 [History Last Taken Unknown] hydrochlorothiazide 12.5 mg tablet 12.5 mg PO DAILY 11/27/23 [History Last Taken Unknown] methotrexate sodium 2.5 mg tablet 2.5 mg PO QWEEK 11/27/23 [History Last Taken Unknown] mycophenolate mofetil 250 mg capsule 500 mg PO BID 11/27/23 [History Last Taken Unknown] amoxicillin 875 mg-potassium clavulanate 125 mg tablet 1 tab PO Q8H 10 days #30 tabs 12/14/23 [Rx Last Taken Unknown] Allergy/AdvReac Type Severity Reaction Status Date / Time No Known Allergies Allergy Verified 12/21/23 15:55 Family History Father Myocardial infarction, Onset Age: 44 Grandmother CVA (cerebral vascular accident) Grandfather Myocardial infarction Mother Lung cancer Surgical History History of bilateral tubal ligation History of dilatation and curettage History of hip replacement History of knee replacement procedure of right knee Social History Smoking Status: Light Smoker (<10/day) alcohol intake: current details: 3-4 beers couple times per week substance use type: does not use caffeine: Yes additional social history: ROS ROS ED Review of Systems ROS Unobtainable: other Constitutional Constitutional ED: Reports lethargy; Denies chills, fever(s), sweats or weight loss Eyes Eyes: Denies blurry vision, change in vision or diplopia ENT ENT ED: Denies rhinorrhea or sore throat Cardiovascular Cardiovascular: Denies chest pain, orthopnea or racing heartbeat Respiratory/Chest Respiratory/Chest: Denies cough, dyspnea, dyspnea on exertion, orthopnea or sputum Gastrointestinal Gastrointestinal: Denies abdominal pain, diarrhea, nausea or vomiting Genitourinary Genitourinary ED: Denies dysuria, hematuria or urinary frequency Musculoskeletal Musculoskeletal: Denies arthralgias, back pain, myalgias or neck pain Integumentary Denies abscess, Abrasions or rash Neurologic Neurologic: Reports weakness; Denies headache(s) Psychiatric Psychiatric: Denies anxiety, depression or suicidal thoughts Endocrine Endocrinology: Denies polydipsia, polyphagia or polyuria Hematologic/Lymphatic Hematologic/Lymphatic: Denies easy bleeding, easy bruising or lymphadenopathy Allergic/Immunologic Allergic/Immunologic ED: Denies mouth swelling, tongue swelling or urticaria EXAM Physical Exam Const Vital Signs: 12/21/23 16:47 12/21/23 17:08 12/21/23 17:10 Temperature 97.7 F L Temperature Source Temporal Pulse Rate 64 64 Respiratory Rate 18 16 Respiratory Effort Normal Respiratory Pattern Normal Blood Pressure 177/79 H 188/88 H Blood Pressure Mean 111 121 Pulse Ox 97 99 Oxygen Delivery Method Room Air Room Air 12/21/23 17:47 12/21/23 17:50 12/21/23 18:00 Temperature Temperature Source Pulse Rate 56 L 60 57 L Respiratory Rate 18 19 H 15 Respiratory Effort Respiratory Pattern Blood Pressure 175/78 H Blood Pressure Mean 107 Pulse Ox 96 96 Oxygen Delivery Method 12/21/23 18:10 12/21/23 18:15 12/21/23 18:20 Temperature Temperature Source Pulse Rate 56 L 56 L 58 L Respiratory Rate 20 H 16 22 H Respiratory Effort Respiratory Pattern Blood Pressure 173/80 H Blood Pressure Mean 105 Pulse Ox 94 96 Oxygen Delivery Method Room Air 12/21/23 18:30 12/21/23 18:40 12/21/23 18:45 Temperature Temperature Source Pulse Rate 56 L 57 L 54 L Respiratory Rate 16 14 16 Respiratory Effort Respiratory Pattern Blood Pressure 173/97 H 179/74 H Blood Pressure Mean 119 106 Pulse Ox 97 98 97 Oxygen Delivery Method Room Air Room Air 12/21/23 18:50 Temperature Temperature Source Pulse Rate 57 L Respiratory Rate 17 Respiratory Effort Respiratory Pattern Blood Pressure Blood Pressure Mean Pulse Ox 97 Oxygen Delivery Method Positive well nourished and well developed General Appearance ED: well developed and NAD HEENT Reports TM's clear and moist mucous membranes normocephalic and atraumatic; Negative for trauma or tenderness Tympanic Membrane ED: Yes TM's clear Eyes PERRL and EOMs intact bilaterally General Eye ED: Negative for pale conjunctiva or scleral icterus Neck no lymphadenopathy, supple and no JVD General: Negative for tenderness Chest Wall inspection of chest normal and palpation of chest normal Chest: Negative for tenderness Resp normal respiratory effort and clear to auscultation bilaterally Effort and Inspection: Negative for respiratory distress or pain with movement Auscultation: Negative for rhonchi, wheezes or diminished lung sounds Cardio regular rate, regular rhythm, S1 normal heart sound, S2 normal heart sound and no murmurs Peripheral Pulses: pulses 2+ throughout GI normal to inspection, nondistended, normoactive bowel sounds, soft to palpation, non-tender, non-distended and no masses Back/Spine no CVA tenderness and no thoracic nor lumbar tenderness Extremity normal to inspection General Extremety ED: Negative for edema General Extremity: Negative for edema Neuro oriented x3, CN's II-XII intact bilaterally, no sensory deficits noted and gait normal Sensorium / Orientation: awake, alert, oriented to person, oriented to place and oriented to time Motor Exam: strength 5/5 throughout and strength abnormal Psych mental status grossly normal Skin no rashes or lesions noted and no wounds MDM MDM MDM Narrative Medical decision making narrative: Patient presents with hypertension and feeling generally weak. She does have history of stress and anxiety. She was seen by her [facility] today and blood pressure was elevated at 190 systolic. Patient states that she generally does not check her blood pressure so she is not really sure what it runs. She denies headache or chest pain or shortness of breath. EKG obtained on arrival showed a sinus rhythm with rate of 58 bpm with no acute ST segment changes. CBC with differential, 7.2 with hemoglobin 13 and platelet count of 245. Chemistries unremarkable. Troponin was normal at 10. Urinalysis was unremarkable for infection. COVID as well as flu and RSV testing was all negative. Without treatment patient was kept on a cardiac cath tech here in her latest blood pressure was 179/74. Clinically she looks well and she is asymptomatic I do not feel emergent treatment is indicated. Recommended she monitor her blood pressure daily and then follow-up with her primary care physician within next 5 to 7 days so that they can make any adjustments at that time. Lab Data Attestation: I reviewed the patient's lab results. Labs: Laboratory Results - last 24 hr 12/21/23 12/21/23 17:12 17:21 WBC 7.2 RBC 4.09 L Hgb 13.1 Hct 39.6 MCV 96.8 MCH 32.0 MCHC 33.1 RDW Std Deviation 47.3 H RDW Coeff of Swetha 13.8 Plt Count 245 MPV 10.8 Immature Gran % (Auto) 1.100 H Neut % (Auto) 76.4 H Lymph % (Auto) 14.8 L [place] % (Auto) 6.1 Eos % (Auto) 0.8 Baso % (Auto) 0.8 Absolute Neuts (auto) 5.5 Absolute Lymphs (auto) 1.06 Nucleated RBC % 0 Sodium 141 Potassium 4.2 Chloride 112 H Carbon Dioxide 22.0 Anion Gap 7 BUN 19 H Creatinine 0.82 Est GFR (MDRD) Af Amer 86 Est GFR (MDRD) Non-Af 71 BUN/Creatinine Ratio 23.1 H Glucose 125 H Calcium 10.3 H Troponin I High Sens 10 Urine Color Yellow Urine Clarity Sl. Cloudy Urine pH 6.0 Ur Specific [place] 1.010 Urine Protein 15 H Urine Glucose (UA) Normal Urine Ketones Negative Urine Occult Blood 25 H Urine Nitrite Negative Urine Bilirubin Negative Urine Urobilinogen Normal Ur Leukocyte Esterase 500 H Urine RBC 0-5 SEEN Urine WBC 5-10 SEEN Ur Squamous Epith Cells 0 SEEN Urine Bacteria 0 SEEN Urine Mucus 0 SEEN EKG Initial EKG: Attestation: I personally reviewed and interpreted this EKG as follows: Comments: Sinus rhythm with rate of 58 bpm with no acute ST segment changes Discharge Plan Triage Chief Complaint: Hypertension ED Provider: Faby Lynn Dx/Rx/DC Orders Clinical Impression: Weakness, Hypertension Instructions: ED Hypertension, Established, ED Weakness (Uncertain Cause) Prescriptions: No Action mycophenolate mofetil 250 mg capsule 500 mg PO BID methotrexate sodium 2.5 mg tablet 2.5 mg PO QWEEK alprazolam 0.5 mg tablet 0.5 mg PO QHS PRN hydrochlorothiazide 12.5 mg tablet 12.5 mg PO DAILY amoxicillin-pot clavulanate 875-125 mg tablet 1 tab PO Q8H 10 Days Qty: 30 0RF buspirone 5 MG tablet 7.5 mg PO BID 0RF lisinopril 20 MG tablet 20 mg PO LUNCH 0RF levothyroxine 25 MCG tablet 25 mcg PO DAILY@0600 0RF metoprolol tartrate 25 MG tablet 25 mg PO 1200,2300 0RF cholecalciferol (vitamin D3) 1,000 UNIT tablet 5,000 unit PO DAILYCM 0RF Primary Care Provider: Kim Valdez Referrals: Kim Valdez, NHAN-C [Primary Care Provider] - 3-5 Days Disposition Disposition: Home, Self Care Discharge Date/Time: 12/21/23 19:07
[2023-12-21 17:26] LABS: Bacteria 0 SEEN /hpf (None Seen); Mucous, Urine 0 SEEN /hpf (<or=2+); Squamous Epithelial Cells - UA 0 SEEN /hpf (5-10)
[2023-12-21 17:47] LABS: Color, Urine Yellow (Yellow); Glucose, Dipstick Normal (Normal); Ketone-Dipstick Negative (Negative); Leukocyte Esterase-Dipstick 500 /ul (Negative); Nitrite-Dipstick Negative (Negative); Occult Blood-Urine 25 /ul (Negative); Protein-Dipstick 15 mg/dl (Negative); Urine Bilirubin Dipstick Negative (Negative); Urine Clarity Sl. Cloudy (Clear); Urine Urobilinogen Normal (Normal)
[2023-12-21 17:51] LABS: Absolute Lymphocyte Count 1.06 X10^3/uL (0.83-4.51); Absolute Neutrophil Count 5.5 X10^3/uL (2.0-7.7); Basophil# 0.06 X10^3/uL; Basophil% 0.8 % (0-1); Eosinophil# 0.06 X10^3/uL; Eosinophils% 0.8 % (0-5); Hematocrit 39.6 % (37-47); Hemoglobin 13.1 g/dL (12.0-15.0); Lymphocyte # 1.06 X10^3/ul (0.83-4.51); Lymphocyte % 14.8 % (19-41); Mean Corp Hgb Conc 33.1 g/dL (32-36); Mean Corpuscular Volume 96.8 fL (81-99); Mean Platelet Vol. 10.8 fl (6.2-12.0); Monocyte# 0.44 X10^3/uL; Monocyte% 6.1 % (0-10); NRBC Flagged by Analyzer 0 % (0-5); Neutrophil # 5.47 X10^3/uL (2.7-7.7); Neutrophil % 76.4 % (47-70); Platelet Count 245 K/mm3 (150-450); RBC Distribution Width CV 13.8 % (11.6-14.6); RBC Distribution Width SD 47.3 fl (35.1-43.9); Red Blood Count 4.09 M/mm3 (4.2-5.4); White Blood Count 7.2 K/mm3 (4.4-11.0)
[2023-12-21 18:07] LABS: Red Blood Cells-Urine 0-5 SEEN /hpf (0-5); White Blood Cells 5-10 SEEN /hpf (0-5)
[2023-12-21 18:09] LABS: Anion Gap 7 (5-15); BUN 19 mg/dL (7-18); BUN/Creat Ratio 23.1 RATIO (10-20); Calcium,Total 10.3 mg/dL (8.5-10.1); Chloride 112 mmol/L (98-107); Creatinine, Serum 0.82 mg/dL (0.55-1.02); EST Glomerular Filtration Rate 71 mL/min (>60); Est Glom Filt Rate - Afr Amer 86 mL/min (>60); Glucose 125 mg/dL (74-106); Potassium 4.2 mmol/L (3.5-5.1); Sodium Level 141 mmol/L (136-145); Troponin-I HS 10 pg/mL (3.0-54.0)
== END 2023-12-21 19:07 | disposition home or self-care (01) ==
PROVIDERS: Emergency Provider Emergency Medicine; PCP Nurse Practitioner Family; Visit Provider Emergency Medicine
DX: I10 Essential (primary) hypertension (principal); I48.0 Paroxysmal atrial fibrillation; R53.1 Weakness; F17.200 Nicotine dependence, unspecified, uncomplicated; F41.9 Anxiety disorder, unspecified; Z79.899 Other long term (current) drug therapy; Z98.51 Tubal ligation status; Z96.649 Presence of unspecified artificial hip joint; Z96.651 Presence of right artificial knee joint
CPT/HCPCS: 80048; 81001; 84484; 85025; 87631; 93005; 99284; A4216

== ENCOUNTER → 2024-01-01 | Outpatient (CLI) | payer MEDICARE, OTHER, SELFPAY ==
[2024-01-01 15:20] LABS: Absolute Lymphocyte Count 1.03 X10^3/uL (0.83-4.51); Absolute Neutrophil Count 4.1 X10^3/uL (2.0-7.7); Basophil# 0.06 X10^3/uL; Eosinophil# 0.08 X10^3/uL; Eosinophils% 1.4 % (0-5); Hematocrit 38.1 % (37-47); Hemoglobin 12.8 g/dL (12.0-15.0); Lymphocyte # 1.03 X10^3/ul (0.83-4.51); Lymphocyte % 17.7 % (19-41); Mean Corp Hgb Conc 33.6 g/dL (32-36); Mean Corpuscular Hgb 32.9 pg (27.0-32.0); Mean Corpuscular Volume 97.9 fL (81-99); Monocyte# 0.57 X10^3/uL; Monocyte% 9.8 % (0-10); NRBC Flagged by Analyzer 0 % (0-5); Neutrophil # 4.06 X10^3/uL (2.7-7.7); Neutrophil % 69.6 % (47-70); Platelet Count 171 K/mm3 (150-450); RBC Distribution Width CV 14.3 % (11.6-14.6); RBC Distribution Width SD 50.6 fl (35.1-43.9); Red Blood Count 3.89 M/mm3 (4.2-5.4); White Blood Count 5.8 K/mm3 (4.4-11.0)
[2024-01-01 15:41] LABS: ALB/GLOB Ratio 1.2 RATIO (0.9-2.4); AST(SGOT) 34 U/L (15-37); Alanine Aminotransfer ALT/SGPT 74 U/L (13-56); Albumin, Serum 3.7 g/dL (3.2-5.0); Alkaline Phosphatase 138 U/L (45-117); Anion Gap 4 (5-15); BUN 17 mg/dL (7-18); BUN/Creat Ratio 20.2 RATIO (10-20); Calcium,Total 9.7 mg/dL (8.5-10.1); Chloride 112 mmol/L (98-107); Creatinine, Serum 0.84 mg/dL (0.55-1.02); EST Glomerular Filtration Rate 69 mL/min (>60); Est Glom Filt Rate - Afr Amer 84 mL/min (>60); Globulin 3.2 g/dL (2.2-4.2); Glucose 126 mg/dL (74-106); Potassium 4.5 mmol/L (3.5-5.1); Protein, Total 6.9 g/dL (6.4-8.2); Sodium Level 138 mmol/L (136-145)
== END | disposition home or self-care (01) ==
LOC: MTLAB 12:40
PROVIDERS: PCP Nurse Practitioner Family; Referring Provider Internal Medicine Rheumatology; Visit Provider Internal Medicine Rheumatology
DX: M06.4 Inflammatory polyarthropathy (principal); Z79.899 Other long term (current) drug therapy; M79.7 Fibromyalgia
CPT/HCPCS: 36415; 80053; 85025

== ENCOUNTER → 2024-01-26 | Outpatient (CLI) | payer MEDICARE, OTHER, SELFPAY ==
--- NOTE | 2024-01-26 10:56 | US_ITS ---
INDICATION: Inflammatory polyarthropathy, elevated LFTs. EXAMINATION: Ultrasound US Abdomen Limited (quadrant) TECHNIQUE: Hammonds scale and color doppler imaging was performed of the right upper quadrant. COMPARISON: No relevant prior comparison study available FINDINGS: LIVER: The liver is normal in size and echogenicity measuring about 15 cm in length. The portal vein is patent with normal hepatopedal flow. No focal hepatic lesion. There is no free fluid. GALLBLADDER AND BILIARY TREE: Multiple gallstones and sludge are seen in the gallbladder. Borderline thickening of the gallbladder wall measuring about 3 mm however the gallbladder wall is not well seen. The proximal common bile duct measures 2 mm, which is within normal limits for the patient''s age. Sonographic Olvera''s sign: Negative. PANCREAS: No focal abnormality is demonstrated in the pancreas as seen on this exam. No pancreatic ductal dilatation. US/Abdomen Limited IMPRESSION: Gallstones and sludge in the gallbladder. Electronically Signed: Will Lopez MD at 11:28 EDT ,
== END | disposition home or self-care (01) ==
PROVIDERS: PCP Nurse Practitioner Family; Referring Provider Internal Medicine Rheumatology; Visit Provider Internal Medicine Rheumatology
DX: M06.4 Inflammatory polyarthropathy (principal); Z79.899 Other long term (current) drug therapy; M79.7 Fibromyalgia
CPT/HCPCS: 76705

== ENCOUNTER → 2024-02-03 | Outpatient (CLI) | payer MEDICARE, OTHER, SELFPAY ==
[2024-02-03 16:06] LABS: ALB/GLOB Ratio 1.3 RATIO (0.9-2.4); AST(SGOT) 13 U/L (15-37); Alanine Aminotransfer ALT/SGPT 17 U/L (13-56); Albumin, Serum 4.2 g/dL (3.2-5.0); Alkaline Phosphatase 69 U/L (45-117); Anion Gap 6 (5-15); BUN 21 mg/dL (7-18); BUN/Creat Ratio 24.9 RATIO (10-20); Chloride 109 mmol/L (98-107); Creatinine, Serum 0.84 mg/dL (0.55-1.02); EST Glomerular Filtration Rate 69 mL/min (>60); Est Glom Filt Rate - Afr Amer 84 mL/min (>60); Globulin 3.2 g/dL (2.2-4.2); Glucose 120 mg/dL (74-106); Potassium 3.8 mmol/L (3.5-5.1); Protein, Total 7.4 g/dL (6.4-8.2); Sodium Level 138 mmol/L (136-145)
== END | disposition home or self-care (01) ==
PROVIDERS: PCP Nurse Practitioner Family; Referring Provider Internal Medicine Rheumatology; Visit Provider Internal Medicine Rheumatology
DX: M06.4 Inflammatory polyarthropathy (principal); Z79.899 Other long term (current) drug therapy; M79.7 Fibromyalgia
CPT/HCPCS: 36415; 80053; 85025

== ENCOUNTER → 2024-03-01 | Outpatient (CLI) | payer MEDICARE, OTHER, SELFPAY ==
[2024-03-01 16:35] LABS: ALB/GLOB Ratio 1.3 RATIO (0.9-2.4); AST(SGOT) 15 U/L (15-37); Alanine Aminotransfer ALT/SGPT 19 U/L (13-56); Alkaline Phosphatase 68 U/L (45-117); Anion Gap 6 (5-15); BUN 20 mg/dL (7-18); BUN/Creat Ratio 23.6 RATIO (10-20); Calcium,Total 9.9 mg/dL (8.5-10.1); Chloride 111 mmol/L (98-107); Creatinine, Serum 0.85 mg/dL (0.55-1.02); EST Glomerular Filtration Rate 69 mL/min (>60); Est Glom Filt Rate - Afr Amer 83 mL/min (>60); Globulin 3.1 g/dL (2.2-4.2); Glucose 113 mg/dL (74-106); Potassium 4.1 mmol/L (3.5-5.1); Protein, Total 7.1 g/dL (6.4-8.2); Sodium Level 139 mmol/L (136-145)
[2024-03-01 16:56] LABS: Absolute Lymphocyte Count 1.35 X10^3/uL (0.83-4.51); Absolute Neutrophil Count 5.6 X10^3/uL (2.0-7.7); Basophil# 0.04 X10^3/uL; Basophil% 0.5 % (0-1); Eosinophil# 0.05 X10^3/uL; Eosinophils% 0.7 % (0-5); Hematocrit 41.6 % (37-47); Hemoglobin 13.6 g/dL (12.0-15.0); Lymphocyte # 1.35 X10^3/ul (0.83-4.51); Lymphocyte % 17.7 % (19-41); Mean Corp Hgb Conc 32.7 g/dL (32-36); Mean Corpuscular Hgb 30.4 pg (27.0-32.0); Mean Corpuscular Volume 92.9 fL (81-99); Mean Platelet Vol. 11.8 fl (6.2-12.0); Monocyte# 0.53 X10^3/uL; NRBC Flagged by Analyzer 0 % (0-5); Neutrophil # 5.63 X10^3/uL (2.7-7.7); Neutrophil % 73.8 % (47-70); Platelet Count 188 K/mm3 (150-450); RBC Distribution Width CV 13.4 % (11.6-14.6); RBC Distribution Width SD 45.1 fl (35.1-43.9); Red Blood Count 4.48 M/mm3 (4.2-5.4); White Blood Count 7.6 K/mm3 (4.4-11.0)
== END | disposition home or self-care (01) ==
LOC: MTLAB 13:16
PROVIDERS: PCP Nurse Practitioner Family; Referring Provider Internal Medicine Rheumatology; Visit Provider Internal Medicine Rheumatology
DX: M06.4 Inflammatory polyarthropathy (principal); Z79.899 Other long term (current) drug therapy; M79.7 Fibromyalgia; M19.041 Primary osteoarthritis, right hand
CPT/HCPCS: 36415; 80053; 85025

== ENCOUNTER → 2024-05-19 | Outpatient (CLI) | payer MEDICARE, OTHER, SELFPAY ==
[2024-05-19 16:20] LABS: ALB/GLOB Ratio 1.2 RATIO (0.9-2.4); AST(SGOT) 10 U/L (15-37); Alanine Aminotransfer ALT/SGPT < 6 U/L (13-56); Alkaline Phosphatase 78 U/L (45-117); Anion Gap 7 (5-15); BUN 22 mg/dL (7-18); BUN/Creat Ratio 26.7 RATIO (10-20); Calcium,Total 9.9 mg/dL (8.5-10.1); Chloride 111 mmol/L (98-107); Cholesterol 182 mg/dL (200); Creatinine, Serum 0.82 mg/dL (0.55-1.02); EST Glomerular Filtration Rate 71 mL/min (>60); Est Glom Filt Rate - Afr Amer 86 mL/min (>60); Globulin 3.3 g/dL (2.2-4.2); Glucose 110 mg/dL (74-106); High Density Lipoprotein 54 mg/dL; Potassium 4.1 mmol/L (3.5-5.1); Protein, Total 7.3 g/dL (6.4-8.2); Sodium Level 137 mmol/L (136-145); T4 Free Direct 1.01 ng/dL (0.76-1.46); Thyroid Stim Hormone (TSH) 3.49 uIU/mL (0.358-3.74); Triglycerides 96 mg/dL; Very Low Density Lipoprotein 19 mg/dL (5-40)
[2024-05-19 16:57] LABS: Absolute Lymphocyte Count 1.44 X10^3/uL (0.83-4.51); Absolute Neutrophil Count 4.5 X10^3/uL (2.0-7.7); Basophil# 0.07 X10^3/uL; Basophil% 1.1 % (0-1); Eosinophil# 0.08 X10^3/uL; Eosinophils% 1.2 % (0-5); Hematocrit 40.6 % (37-47); Hemoglobin 13.2 g/dL (12.0-15.0); Lymphocyte # 1.44 X10^3/ul (0.83-4.51); Lymphocyte % 21.7 % (19-41); Mean Corp Hgb Conc 32.5 g/dL (32-36); Mean Corpuscular Hgb 30.6 pg (27.0-32.0); Mean Platelet Vol. 11.7 fl (6.2-12.0); Monocyte# 0.49 X10^3/uL; Monocyte% 7.4 % (0-10); NRBC Flagged by Analyzer 0 % (0-5); Neutrophil # 4.53 X10^3/uL (2.7-7.7); Neutrophil % 68.3 % (47-70); Platelet Count 191 K/mm3 (150-450); RBC Distribution Width SD 47.8 fl (35.1-43.9); Red Blood Count 4.32 M/mm3 (4.2-5.4); White Blood Count 6.6 K/mm3 (4.4-11.0)
== END | disposition home or self-care (01) ==
PROVIDERS: PCP Nurse Practitioner Family; Referring Provider Internal Medicine Rheumatology; Visit Provider Internal Medicine Rheumatology
DX: E03.9 Hypothyroidism, unspecified (principal); M06.4 Inflammatory polyarthropathy; E78.2 Mixed hyperlipidemia; Z79.899 Other long term (current) drug therapy; M79.7 Fibromyalgia; M19.041 Primary osteoarthritis, right hand
CPT/HCPCS: 36415; 80053; 80061; 84439; 84443; 85025

== ENCOUNTER 2024-06-17 09:18 | Observation (INO) | payer MEDICARE, OTHER, SELFPAY ==
[2024-06-17] VITALS (8 sets, daily range): BP systolic 123–184; BP diastolic 76–118; PULSE 74–88; RESP 17–18; TEMP 36.6–37.1; O2SAT 95–98; BMI 33.3; BMI 29.8
[2024-06-17] MEDS: Morphine 4 MG/ML Syringe IM (09:31)
[2024-06-17] MEDS: Ondansetron ODT 4 MG Tablet PO (09:31)
--- NOTE | 2024-06-17 10:09 | RAD_ITS ---
HISTORY Injury/Pain. TECHNIQUE: XR Hip Unilateral with Pelvis when performed; 2-3 Views. COMPARISON: 07/25/2019. FINDINGS: BONES : No acute fracture identified. No abnormal periprosthetic lucency seen. JOINTS: Bilateral hip arthroplasties in place without dislocation. SOFT TISSUES: Tubal ligation clips in the pelvis. RAD/HIP, UNI W/ Pelvis 2-3 Views IMPRESSION: Bilateral hip arthroplasties without acute fracture or dislocation identified. Recommend follow-up if symptoms persist. Electronically Signed: Zulma Gill MD at 10:32 EDT ,
[2024-06-17] MEDS: Morphine 4 MG/ML Syringe IV (13:37)
--- NOTE | 2024-06-17 13:43 | NURSING ---
06/17/24@ 1340- pt unable to tolerate ambulating due to pain. pt medicated for pain. discussed possibility of needing snf placement. will attempt to ambulate after pain meds have had time to work. aware. will continue to monitor.
--- NOTE | 2024-06-17 14:47 | PCM.HP.STD ---
HPI - General General Date of Admission: 06/17/24 Date of Service: 06/17/24 Chief Complaint: Falls and difficulty with ambulation HPI Narrative JAVIER STANFORD, is a 78 F who presented to [facility] ED on 06/17/2024 with multiple recent falls and difficulty with ambulation. Patient lives at home, son lives with her but he is frequently working. She has history of bilateral hip arthroplasties. States she has felt weaker over the past several days and then had a small fall yesterday and then worse fall this morning while getting out of bed. She fell onto her right hip and had right hip pain, and was unable to get off the floor so she called EMS to bring her in. Hip/pelvis x-ray showed prior bilateral hip arthroplasties with no acute fracture or dislocation identified. She was given doses of IV morphine with some improvement in pain. However, when ED staff attempted to walk her she could only take a few steps with assistance before having to sit back down due to weakness and hip pain. ED staff told her that she would likely need to go to a retirement for rehabilitation because of this and she was agreeable to that. Hospitalist was then contacted for admission. I saw the patient at bedside in the ED. She was mildly fatigued appearing but otherwise sitting up comfortably in bed, conversing normally, no acute distress. She reported mild right hip pain currently, improved from earlier today. Denied any other acute pain or discomfort. She generally stated that she simply felt more weak than her normal. Denied any recent medication changes. Denied any recent infectious type symptoms. Stated she has been eating and drinking about her normal. No other acute concerns at this time. [facility] Medical History Paroxysmal atrial fibrillation Essential hypertension Myasthenia gravis Ptosis Cervical disc disease Tobacco abuse Anxiety Bilateral pneumonia Home Medications ?Medication ?Instructions ?Recorded ?Last Taken ?Type cholecalciferol (vitamin D3) 25 5,000 unit PO DAILYCM 06/21/19 06/16/24 Rx mcg (1,000 unit) tablet levothyroxine 25 mcg tablet 25 mcg PO DAILY@0600 06/21/19 06/16/24 Rx methotrexate sodium 2.5 mg tablet 12.5 mg PO MA 11/27/23 06/12/24 History mycophenolate mofetil 250 mg 500 mg PO BID 11/27/23 06/16/24 History capsule buspirone 5 mg tablet 5 mg PO BID 06/17/24 06/16/24 History folic acid 1 mg tablet 2 mg PO DAILY 06/17/24 06/16/24 History lisinopril 40 mg tablet 40 mg PO DAILY 06/17/24 06/16/24 History metoprolol tartrate 25 mg tablet 25 mg PO BID 06/17/24 06/16/24 History pyridostigmine bromide 60 mg tablet 60 mg PO BID 06/17/24 06/16/24 History sertraline 50 mg tablet 50 mg PO DAILY 06/17/24 06/16/24 History Allergy/AdvReac Type Severity Reaction Status Date / Time No Known Allergies Allergy Verified 06/17/24 15:17 Family History Father Myocardial infarction, Onset Age: 44 Grandmother CVA (cerebral vascular accident) Grandfather Myocardial infarction Mother Lung cancer Surgical History History of hip replacement History of bilateral tubal ligation History of dilatation and curettage History of knee replacement procedure of right knee Social History Smoking Status: Current every day smoker tobacco type: cigarettes alcohol intake: current details: 3-4 beers couple times per week substance use type: does not use caffeine: Yes additional social history: ROS Constitutional Constitutional: Reports fatigue and weakness; Denies chills or fever(s) Eyes Eyes: Denies change in vision Cardiovascular Cardiovascular: Denies chest pain Respiratory/Chest Respiratory/Chest: Denies shortness of breath at rest Gastrointestinal Gastrointestinal: Denies abdominal pain Genitourinary Genitourinary: Denies dysuria Musculoskeletal Musculoskeletal: Reports joint pain and joint stiffness; Denies arthralgias or myalgias Neurologic Neurologic: Denies dizziness, focal weakness or headache(s) Vital Signs Vital Signs Vital Signs: 06/17/24 09:20 06/17/24 09:39 06/17/24 11:19 Temperature 97.8 F Temperature Source Temporal Pulse Rate 88 88 Respiratory Rate 18 18 Respiratory Effort Normal Blood Pressure 184/118 H 144/85 H Blood Pressure Mean 140 104 Pulse Ox 97 98 Oxygen Delivery Method Room Air Room Air 06/17/24 13:00 Temperature Temperature Source Pulse Rate 88 Respiratory Rate 18 Respiratory Effort Blood Pressure 138/80 H Blood Pressure Mean 99 Pulse Ox 98 Oxygen Delivery Method Weight Weight: 82.554 kg Body Mass Index (BMI) 33.3 Physical Exam Const alert, oriented x3 and no apparent distress Constitutional Narrative: Elderly female, obese, mildly fatigued appearing, otherwise sitting up comfortably in bed, conversing normally, in no acute distress. General Appearance: cooperative and comfortable HEENT normocephalic, head/scalp atraumatic, hearing grossly normal bilaterally and nasal mucous membranes and turbinates normal Eyes PERRL, EOMs intact bilaterally and conjunctivae normal Neck full ROM Chest inspection of chest normal Resp normal respiratory effort, normal air movement, no use of accessory muscles and clear to auscultation bilaterally Cardio regular rate, regular rhythm, no murmurs and peripheral pulses 2+ throughout GI normal to inspection, nondistended, normoactive bowel sounds, soft to palpation, non-tender and non-distended Back/Spine normal ROM Extremity Extremity Narrative: No bruising noted on bilateral hips. Mild tenderness to palpation along outside of right hip. No lower extremity edema noted. Lower extremity range of motion limited by pain and apparent weakness. Skin no rashes or lesions noted Neuro moves all extremities Speech: speech normal Psych mental status grossly normal Results Lab / Micro Data 06/17/24 15:28 06/17/24 15:28 Imaging Radiology Impression Hip/Pelvis X-Ray 06/17/24 10:09 IMPRESSION: Bilateral hip arthroplasties without acute fracture or dislocation identified. Recommend follow-up if symptoms persist. Electronically Signed: Zulma Gill MD at 10:32 EDT , Assessment & Plan Assessment/Plan (1) Fall: (2) Contusion of right hip, initial encounter: (3) Unable to ambulate: PLAN: Plan Patient is a 78-year-old female who presented to [facility] ED on 06/17/2024 with recent falls and difficulty with ambulation. 1. Mechanical falls with hip pain and acute on chronic debility ? Admit under observation status to [facility]. PT/OT/case management consulted. Hip/pelvis x-ray in ED showed known previous bilateral hip arthroplasties but no acute fracture or dislocation. Typically uses 4 point walker for ambulation at home. Will likely need SNF placement on discharge. Pain control with scheduled Tylenol and oxycodone as needed. Chronic medical conditions: ? Obesity: BMI 33 on admit. Complicates hospital course, care and prognosis. ? Myasthenia gravis: No concern for acute exacerbation, patient breathing comfortably on room air and no ptosis noted on exam. Continue home mycophenolate mofetil and pyridostigmine. ? Hypertension: Stable, continue home Lopressor and lisinopril. ? Anxiety/depression: Stable, continue home sertraline and BuSpar. ? Hypothyroidism: Recent normal TSH on 05/19/2024. Continue home Synthroid. DVT prophylaxis: Lovenox CODE STATUS: Full code, verified Expected disposition: SNF, 1 to 2 days Total clinical time spent by myself addressing the patient's medical issues, reviewing all the data, and collaborating with patient's care team: 55 minutes. Charges/Coding Visit Charges Inpatient E&M: 72391 Init Hosp L2
--- NOTE | 2024-06-17 14:52 | EX.ED.GENINJ ---
HPI History of Present Illness Chief Complaint: Fall Detail of Chief Complaint: Fall last evening and this morning inability to bear weight due to right hi Informant: patient and EMS Onset/Context/Timing Onset: Today and Yesterday Mechanism/Context: Blunt Injury and Fall Location of pain/injuries: Right hip and Right thigh Quality of Pain: Dull and Aching Location: points to the right inguinal area Current Severity: Mild Maximum Severity: Severe Worsened by: Movement of leg or attempt to bear weight Relieved by: Nothing Associated Symptoms Associated Symptoms: Positive for Loss of function and Inability to ambulate; Negative for Parasthesias, Weakness or Loss of consciousness Narrative Narrative: Patient is a 74-year-old woman who fell yesterday. Son helped her up. She fell today out of bed. Complains of right hip pain. She was unable to get off the floor. Paramedics were called to bring her to the emergency department. She is status post right and left total hip arthroplasty. She localizes the pain to the right inguinal area. She denies knee pain. Denies ankle pain. She denies head trauma. She denies neck pain. She denies paresthesia, anesthesia or motor of his upper or lower extremity. She denies cardiac or respiratory symptoms. She denies GI symptoms. Tetanus Immunization: Unknown Prior similar symptoms: No Recent Illness/Hospitalization: No PFSH [facility] Medical History Paroxysmal atrial fibrillation Essential hypertension Myasthenia gravis Ptosis Cervical disc disease Tobacco abuse Anxiety Bilateral pneumonia Home Medications ?Medication ?Instructions ?Recorded ?Last Taken ?Type cholecalciferol (vitamin D3) 25 5,000 unit PO DAILYCM 06/21/19 06/16/24 Rx mcg (1,000 unit) tablet levothyroxine 25 mcg tablet 25 mcg PO DAILY@0600 06/21/19 06/16/24 Rx methotrexate sodium 2.5 mg tablet 12.5 mg PO MA 11/27/23 06/12/24 History mycophenolate mofetil 250 mg 500 mg PO BID 11/27/23 06/16/24 History capsule buspirone 5 mg tablet 5 mg PO BID 06/17/24 06/16/24 History folic acid 1 mg tablet 2 mg PO DAILY 06/17/24 06/16/24 History lisinopril 40 mg tablet 40 mg PO DAILY 06/17/24 06/16/24 History metoprolol tartrate 25 mg tablet 25 mg PO BID 06/17/24 06/16/24 History pyridostigmine bromide 60 mg tablet 60 mg PO BID 06/17/24 06/16/24 History sertraline 50 mg tablet 50 mg PO DAILY 06/17/24 06/16/24 History Allergy/AdvReac Type Severity Reaction Status Date / Time No Known Allergies Allergy Verified 12/21/23 15:55 Family History Father Myocardial infarction, Onset Age: 44 Grandmother CVA (cerebral vascular accident) Grandfather Myocardial infarction Mother Lung cancer Surgical History History of hip replacement History of bilateral tubal ligation History of dilatation and curettage History of knee replacement procedure of right knee Social History Smoking Status: Current every day smoker tobacco type: cigarettes alcohol intake: current details: 3-4 beers couple times per week substance use type: does not use caffeine: Yes additional social history: ROS ROS ED Constitutional Constitutional ED: Denies chills, fever(s) or subjective Eyes Eyes: Denies blurry vision or change in vision ENT ENT ED: Denies ear pain, rhinorrhea or sore throat Cardiovascular Cardiovascular: Denies chest pain, palpitations or racing heartbeat Respiratory/Chest Respiratory/Chest: Denies cough, dyspnea or dyspnea on exertion Gastrointestinal Gastrointestinal: Denies abdominal pain, nausea or vomiting Genitourinary Genitourinary ED: Denies dysuria, hematuria or urinary frequency Musculoskeletal Musculoskeletal: Reports other Details: Right hip pain ; Denies arthralgias, back pain, myalgias or neck pain Integumentary Denies rash Neurologic Neurologic: Denies headache(s) or paresthesias Psychiatric Psychiatric: Reports other Details: Patient is agitated and upset that things are not being done more quickly. ; Denies anxiety or depression Hematologic/Lymphatic Hematologic/Lymphatic: Reports other Details: Patient is on no anticoagulant. ; Denies easy bleeding or easy bruising Allergic/Immunologic Allergic/Immunologic ED: Denies mouth swelling or tongue swelling EXAM Physical Exam Const Vital Signs: 06/17/24 09:20 06/17/24 09:39 06/17/24 11:19 Temperature 97.8 F Temperature Source Temporal Pulse Rate 88 88 Respiratory Rate 18 18 Respiratory Effort Normal Blood Pressure 184/118 H 144/85 H Blood Pressure Mean 140 104 Pulse Ox 97 98 Oxygen Delivery Method Room Air Room Air 06/17/24 13:00 Temperature Temperature Source Pulse Rate 88 Respiratory Rate 18 Respiratory Effort Blood Pressure 138/80 H Blood Pressure Mean 99 Pulse Ox 98 Oxygen Delivery Method Positive well nourished and well developed Constitutional Narrative: Patient appears uncomfortable. Patient yells when I logrolled her right lower extremity and complains of pain in the right inguinal area. General Appearance ED: well developed; Negative for NAD HEENT Reports TM's clear HEENT Narrative: There is no dental trauma. atraumatic; Negative for tenderness Nose: Negative for septum abnormal Tympanic Membrane ED: Yes TM's clear Eyes PERRL and EOMs intact bilaterally Neck full ROM Chest Wall inspection of chest normal and palpation of chest normal Resp normal respiratory effort and clear to auscultation bilaterally Cardio regular rhythm, S1 normal heart sound, S2 normal heart sound and no murmurs GI normal to inspection, nondistended, normoactive bowel sounds, non-tender, non-distended and no masses Narrative: There is no pain the patient of the right or left iliac wing, right or left ischial tuberosity or the pubic symphysis. There is pain the patient over the greater trochanteric region. There is pain with logrolling of her right lower extremity. Back/Spine no thoracic nor lumbar tenderness Extremity normal to inspection; Negative for full ROM Extremity Narrative: Documented under the portion of the exam General Extremety ED: Yes tenderness; Negative for deformity General Extremity: Negative for deformity Neuro oriented x3, CN's II-XII intact bilaterally, moves all extremities, no focal motor deficits and no sensory deficits noted Brenda Coma Scale: document GCS findings Spontaneous Obeys Commands Oriented 15 Sensorium / Orientation: alert Plantar Reflex: Downgoing: bilateral Psych Psych Narrative: Patient yelled at the nurse because things were not being done quickly enough. Attitude: agitated Skin no rashes or lesions noted, no wounds, skin turgor normal and no jaundice MDM MDM MDM Narrative Medical decision making narrative: Unable to remove pants and did not realize that she is status post total right hip arthroplasty. 3 view hip x-ray was obtained. There was no evidence of fracture of the periprosthetic region, acetabulum, ischial tuberosity or superior pubic rami. This was independent reviewed interpreted by me. Patient was given IV morphine. Still unable to get up out of bed. She given additional dose of morphine. She walked with assistance 10 feet. This took her 10 minutes. She reports pain with weightbearing. Patient was informed that she would need OT PT assessment and probable assisted placement. She understood. Radiography Chest X-Ray - ED: Read by ED Physician (Three-view Documented under the [facility] portion of the medical record) Diagnostic Testing: Clinical Impression(s) from Imaging Studies Hip/Pelvis X-Ray 06/17/24 10:09 IMPRESSION: Bilateral hip arthroplasties without acute fracture or dislocation identified. Recommend follow-up if symptoms persist. Electronically Signed: Zulma Gill MD at 10:32 EDT Reading Location ID and State: [facility] / [place] Tel , Service support , Discharge Plan Triage Chief Complaint: Fall ED Provider: Tino Pond Dx/Rx/DC Orders Clinical Impression: Contusion of right hip, initial encounter, Myasthenia gravis, Essential hypertension, Anxiety, Unable to ambulate Prescriptions: No Action mycophenolate mofetil 250 mg capsule 500 mg PO BID methotrexate sodium 2.5 mg tablet 12.5 mg PO MA levothyroxine 25 MCG tablet 25 mcg PO DAILY@0600 0RF cholecalciferol (vitamin D3) 1,000 UNIT tablet 5,000 unit PO DAILYCM 0RF lisinopril 40 mg tablet 40 mg PO DAILY folic acid 1 mg tablet 2 mg PO DAILY pyridostigmine bromide 60 mg tablet 60 mg PO BID buspirone 5 MG tablet 5 mg PO BID sertraline 50 mg tablet 50 mg PO DAILY Patient Comments: PT CURRENTLY TAKING, BUT DR. SANTIAGO NULL WANTS HER TO SWITCH TO CYMBALTA SOON metoprolol tartrate 25 MG tablet 25 mg PO BID Primary Care Provider: Kim Valdez Referrals: Kim Valdez, ASSISTED LIVING ADMINISTRATOR-C [Primary Care Provider] - Print Language: Burundian Disposition Disposition: Acute Care [facility]
--- NOTE | 2024-06-17 15:20 | ED.RN ---
Attempted to walk pt with walker. Pt in pain, yelling out. Pt moving very slowly and kept stating she was unable to ambulate effectively. Requesting admission to have rehab. Dr. Pond notified
[2024-06-17 15:40] LABS: Absolute Lymphocyte Count 0.87 X10^3/uL (0.83-4.51); Absolute Neutrophil Count 5.4 X10^3/uL (2.0-7.7); Basophil# 0.03 X10^3/uL; Basophil% 0.4 % (0-1); Eosinophil# 0.04 X10^3/uL; Eosinophils% 0.6 % (0-5); Hematocrit 38.4 % (37-47); Hemoglobin 12.6 g/dL (12.0-15.0); Lymphocyte # 0.87 X10^3/ul (0.83-4.51); Lymphocyte % 12.3 % (19-41); Mean Corp Hgb Conc 32.8 g/dL (32-36); Mean Corpuscular Hgb 30.7 pg (27.0-32.0); Mean Corpuscular Volume 93.7 fL (81-99); Mean Platelet Vol. 10.6 fl (6.2-12.0); Monocyte% 9.9 % (0-10); NRBC Flagged by Analyzer 0 % (0-5); Neutrophil # 5.42 X10^3/uL (2.7-7.7); Neutrophil % 76.4 % (47-70); Platelet Count 175 K/mm3 (150-450); RBC Distribution Width CV 13.8 % (11.6-14.6); RBC Distribution Width SD 46.2 fl (35.1-43.9); White Blood Count 7.1 K/mm3 (4.4-11.0)
[2024-06-17 15:47] LABS: Anion Gap 4 (5-15); BUN 16 mg/dL (7-18); BUN/Creat Ratio 20.7 RATIO (10-20); Calcium,Total 9.7 mg/dL (8.5-10.1); Chloride 111 mmol/L (98-107); Creatinine, Serum 0.77 mg/dL (0.55-1.02); EST Glomerular Filtration Rate 77 mL/min (>60); Est Glom Filt Rate - Afr Amer 93 mL/min (>60); Estimated Creatinine Clearance 56.78 ml/min; Glucose 116 mg/dL (74-106); Potassium 3.9 mmol/L (3.5-5.1); Sodium Level 139 mmol/L (136-145)
[2024-06-17] MEDS: Acetaminophen 500 MG Tablet 1000 MG PO ×2 (17:17→21:00)
[2024-06-17] MEDS: Metoprolol Tartrate 25 MG Tablet PO (20:56)
[2024-06-17] MEDS: busPIRone 5 MG Tablet PO (20:56)
[2024-06-17] MEDS: Mycophenolate Mofetil 250 MG Capsule 500 MG PO (20:57)
[2024-06-17] MEDS: Pyridostigmine Bromide 60 MG Tablet PO (20:58)
[2024-06-17] MEDS: MELATONIN 3 MG TABLET PO (21:05)
[2024-06-18 02:23] VITALS: BP 129/74; PULSE 72; RESP 16; TEMP 36.7; O2SAT 97
[2024-06-18] MEDS: Levothyroxine 25 MCG TABLET PO (05:37)
[2024-06-18] MEDS: Acetaminophen 500 MG Tablet 1000 MG PO ×3 (05:37→22:23)
[2024-06-18 07:27] LABS: Hematocrit 33.5 % (37-47); Hemoglobin 11.4 g/dL (12.0-15.0); Mean Corpuscular Hgb 32.9 pg (27.0-32.0); Mean Corpuscular Volume 96.5 fL (81-99); Mean Platelet Vol. 11.2 fl (6.2-12.0); Platelet Count 151 K/mm3 (150-450); RBC Distribution Width CV 14.1 % (11.6-14.6); RBC Distribution Width SD 47.8 fl (35.1-43.9); Red Blood Count 3.47 M/mm3 (4.2-5.4); White Blood Count 5.2 K/mm3 (4.4-11.0)
[2024-06-18 07:42] VITALS: PULSE 63
[2024-06-18] MEDS: Metoprolol Tartrate 25 MG Tablet PO ×2 (07:42→22:31)
[2024-06-18] MEDS: Mycophenolate Mofetil 250 MG Capsule 500 MG PO ×2 (07:42→22:27)
[2024-06-18] MEDS: Folic Acid 1 MG Tablet 2 MG PO (07:42)
[2024-06-18 07:43] LABS: Anion Gap 5 (5-15); BUN 18 mg/dL (7-18); BUN/Creat Ratio 20.3 RATIO (10-20); Calcium,Total 9.4 mg/dL (8.5-10.1); Chloride 111 mmol/L (98-107); Creatinine, Serum 0.88 mg/dL (0.55-1.02); EST Glomerular Filtration Rate 65 mL/min (>60); Est Glom Filt Rate - Afr Amer 79 mL/min (>60); Estimated Creatinine Clearance 49.23 ml/min; Glucose 110 mg/dL (74-106); Potassium 4.1 mmol/L (3.5-5.1); Sodium Level 138 mmol/L (136-145)
[2024-06-18] MEDS: Sertraline 50 MG Tablet PO (07:43)
[2024-06-18] MEDS: Lisinopril 40 MG Tablet PO (07:43)
[2024-06-18] MEDS: Cholecalciferol (VIT D3) 25 MCG TABLET (1,000 UNITS) 50 MCG PO (07:43)
[2024-06-18] MEDS: busPIRone 5 MG Tablet PO ×2 (07:43→22:24)
[2024-06-18] MEDS: Enoxaparin 40 MG/0.4 ML Syringe SC (07:44)
[2024-06-18] MEDS: Pyridostigmine Bromide 60 MG Tablet PO ×2 (07:44→22:26)
--- NOTE | 2024-06-18 08:41 | PN.HOSP_ITS ---
Subjective Subjective Doing well, no issues overnight. She states that she has been noticing an odd odor to her urine but has not been having any dysuria Objective Data Objective Data Vital Signs: Vital Signs Temp Pulse Resp BP Pulse Ox O2 Del Method 98.0 F 63 16 129/74 H 97 Room Air 06/18/24 02:23 06/18/24 07:42 06/18/24 02:23 06/18/24 02:23 06/18/24 02:23 06/18/24 02:23 Oxygen Delivery Method Room Air Weight: 165 lb 14.4 oz Body Mass Index (BMI) 29.8 Intake & Output: Intake and Output for Last 24 Hours 06/17/24 06/18/24 06/19/24 03:59 03:59 03:59 Output Total 300 / 300 300 / 300 Balance -300 / -300 -300 / -300 Lab / Micro Data 06/18/24 06:20 06/18/24 06:20 Labs: Laboratory Results - last 24 hr 06/17/24 15:28: WBC 7.1, RBC 4.10 L, Hgb 12.6, Hct 38.4, MCV 93.7, MCH 30.7, MCHC 32.8, RDW Std Deviation 46.2 H, RDW Coeff of Swetha 13.8, Plt Count 175, MPV 10.6, Immature Gran % (Auto) 0.400, Neut % (Auto) 76.4 H, Lymph % (Auto) 12.3 L, Crockett % (Auto) 9.9, Eos % (Auto) 0.6, Baso % (Auto) 0.4, Absolute Neuts (auto) 5.4, Absolute Lymphs (auto) 0.87, Nucleated RBC % 0, Sodium 139, Potassium 3.9, Chloride 111 H, Carbon Dioxide 24.0, Anion Gap 4 L, BUN 16, Creatinine 0.77, Estim Creat Clear Calc 56.78, Est GFR (MDRD) Af Amer 93, Est GFR (MDRD) Non-Af 77, BUN/Creatinine Ratio 20.7 H, Glucose 116 H, Calcium 9.7 06/18/24 06:20: WBC 5.2, RBC 3.47 L, Hgb 11.4 L, Hct 33.5 L, MCV 96.5, MCH 32.9 H, MCHC 34.0, RDW Std Deviation 47.8 H, RDW Coeff of Swetha 14.1, Plt Count 151, MPV 11.2, Sodium 138, Potassium 4.1, Chloride 111 H, Carbon Dioxide 22.0, Anion Gap 5, BUN 18, Creatinine 0.88, Estim Creat Clear Calc 49.23, Est GFR (MDRD) Af Amer 79, Est GFR (MDRD) Non-Af 65, BUN/Creatinine Ratio 20.3 H, Glucose 110 H, Calcium 9.4 Radiography Diagnostic Testing: Radiology Impression Hip/Pelvis X-Ray 06/17/24 10:09 IMPRESSION: Bilateral hip arthroplasties without acute fracture or dislocation identified. Recommend follow-up if symptoms persist. Electronically Signed: Zulma Gill MD at 10:32 EDT Reading Location ID and State: [facility] / [place] Tel , Service support , Physical Exam Narrative General: Alert, Oriented x3, Cooperative, No apparent distress HEENT: Atraumatic, PERRLA, EOMI, Normocephalic Oral: Moist Mucosa Neck: Supple, No JVD Lungs:Diminished, Normal air movement, No rhonchi, No wheeze, No rales Cardiovascular: Regular rate, Regular Rhythm, Normal S1, Normal S2, No murmurs Abdomen: Soft, Non Tender, Non-Distended, No Hepato-splenomegaly Extremities: No edema, Capillary Refill Less than 3 Seconds Skin: No rashes, No breakdown Musculoskeletal: Mild right hip tenderness Neurological: No focal neurological deficits, Motor Exam 5/5 strength throughout, Sensory exam intact to light touch and pain Psych/Mental Status: Normal Affect, Appropriate diminished Assessment & Plan Assessment/Plan (1) Fall: (2) Contusion of right hip, initial encounter: (3) Unable to ambulate: PLAN: Plan 1. Mechanical fall on ? She has had to use a walker in the past and has noticed some weakness recently after a fall on she had difficulty getting up on Thursday and had to have her son lift her up twice ? Will obtain a UA ? PT/OT ? Case management consult for discharge planning 2. Essential HTN ? Blood pressures are stable ? Can resume her home blood pressure medications ? Will 3. Myasthenia gravis ? No exacerbation ? Continue with her home medications 4. Anxiety/depression ? Stable ? Continue with her home meds n monitor make adjustments as necessary 5. Hypothyroidism ? Stable ? Continue with Synthroid DVT: Lovenox Charges/Coding Visit Charges Inpatient E&M: 51875 Subs Hosp L2
[2024-06-18 08:51] VITALS: BP 150/80; PULSE 63; RESP 16; TEMP 36.4; O2SAT 96
[2024-06-18] MEDS: oxyCODONE 5 MG Tablet PO ×2 (09:25→22:24)
[2024-06-18 11:18] VITALS: BP 102/52; PULSE 54; RESP 16; TEMP 36.3; O2SAT 97
[2024-06-18 12:05] LABS: Mucous, Urine 0 SEEN /hpf (<or=2+); Red Blood Cells-Urine 0 SEEN /hpf (0-5)
[2024-06-18 12:23] LABS: Color, Urine Yellow (Yellow); Glucose, Dipstick Normal (Normal); Ketone-Dipstick Negative (Negative); Leukocyte Esterase-Dipstick 100 /ul (Negative); Nitrite-Dipstick Negative (Negative); Occult Blood-Urine 10 /ul (Negative); Protein-Dipstick 15 mg/dl (Negative); Urine Bilirubin Dipstick Negative (Negative); Urine Clarity Clear (Clear); Urine Urobilinogen 1 mg/dl (Normal)
[2024-06-18 12:43] LABS: Bacteria 3+ /hpf (None Seen); Squamous Epithelial Cells - UA 0-5 SEEN /hpf (5-10); White Blood Cells 5-10 SEEN /hpf (0-5)
--- NOTE | 2024-06-18 13:23 | CASEMGMT ---
Social Work SW met with pt and introduced self and role of SW. Pt agreeable to meet with SW to discuss discharge plan. PCP: Kim Valdez NP Insurance: Medicare and MMO secondary Prescription Benefit:?yes LNOK: Pt spouse in September 2023. Pt's son Ruth lives with her. Pt also has a local son Darwin. Living Arrangements: Pt lives in a one story home with a ramp to enter. Pt son lives with pt but works much of the time and pt is alone and cares for self. Pt states she is independent with ADLs and IADLS. Transportation:?son DME: ? cane, walker, BSC, Wheelchair, shower chair PLAN: Pt states she has been independent at home with a fall on . Pt states this is her first fall in 6 or 7 years. Pt stating that the pain in her legs from the fall is limiting and pt is interested in going to a nursing facility. SW explained observation status and that because pt does not have a qualifying hospital stay, [facility] will not cover the cost of a SNF. Pt immediately stating she will not pay for SNF and will return home. SW did explore possiblity of inpatient rehab if pt would qualify. Pt is agreeable to this. A list of SNF providers including quality and resource use data and consistent with the patient?s preferred geographic region, medical needs, and insurance network were provided from the [employer] Guide. Pt preferred provider is [facility]. SW did explain that it is not guaranteed [facility] can accept pt. Pt feels like [place] would be best for her, but if she does not qualify, she will return home. Referral made to [facility] in [place]. SW will await determination of acceptance. [facility], pending acceptance [facility]
[2024-06-18 15:10] VITALS: BP 92/55; PULSE 66; RESP 16; TEMP 36.4; TEMP 36.9; O2SAT 96
--- NOTE | 2024-06-18 15:46 | CASEMGMT ---
RN JOSE DANIEL NOTE: Intro role of CM to patient and MAYA form explained re: Observation status for treatment of falls w/debility.? Explained hospitalization will be paid per?herinsurance policy for Outpatient billing?and condition will continue to be evaluated for Inpt necessity. Also let pt know that [facility] sends paper in the billing packet with their phone number if questions arise. Discussed Pharmacy section of MAYA form and self administered medication guideline.? Pt verbalizes understanding and does not have further questions. ?Form signed, copy made and placed in chart, and original given to pt. Rosaura MCCLAINN RN CM
[2024-06-18] MEDS: Ceftriaxone 1 GM/50 ML BAG IV (16:11)
[2024-06-18] MEDS: 0.9% Normal Saline (250mL Bag) 250 ML 15 ML IV (16:11)
[2024-06-18] MEDS: 0.9% Saline Lock 10 ML Syringe IV (16:11)
[2024-06-18] MEDS: MELATONIN 3 MG TABLET PO (22:23)
[2024-06-18] MEDS: Menthol/Lanolin/Calamine/Znox 113 GM Tube 1 APPLIC TOPICAL (22:30)
[2024-06-18 22:31] VITALS: BP 139/66; PULSE 68; RESP 18; TEMP 37.1; O2SAT 97
[2024-06-19] VITALS (8 sets, daily range): BP systolic 94–141; BP diastolic 52–77; PULSE 54–70; RESP 18; TEMP 36.4–36.7; O2SAT 94–97
[2024-06-19] MEDS: Levothyroxine 25 MCG TABLET PO (06:42)
[2024-06-19] MEDS: Acetaminophen 500 MG Tablet 1000 MG PO ×3 (06:42→21:41)
--- NOTE | 2024-06-19 08:12 | PCM.PN.HOSP ---
Subjective Subjective Doing well, no issues overnight. Still having issues with her right leg soreness from her fall Objective Data Objective Data Vital Signs: Vital Signs Temp Pulse Resp BP Pulse Ox O2 Del Method 97.6 F L 54 L 18 106/63 95 Room Air 06/19/24 03:08 06/19/24 03:08 06/19/24 03:08 06/19/24 03:08 06/19/24 07:27 06/19/24 07:27 Oxygen Delivery Method Room Air Weight: 165 lb 14.4 oz Body Mass Index (BMI) 29.8 Intake & Output: Intake and Output for Last 24 Hours 06/18/24 06/19/24 06/20/24 03:59 03:59 03:59 Intake Total 623 / 623 100 / 100 Output Total 300 / 300 450 / 450 200 / 200 Balance -300 / -300 173 / 173 -100 / -100 Lab / Micro Data 06/18/24 06:20 06/18/24 06:20 Labs: Laboratory Results - last 24 hr 06/18/24 11:55: Urine Color Yellow, Urine Clarity Clear, Urine pH 6.0, Ur Specific [place] 1.020, Urine Protein 15 H, Urine Glucose (UA) Normal, Urine Ketones Negative, Urine Occult Blood 10 H, Urine Nitrite Negative, Urine Bilirubin Negative, Urine Urobilinogen 1 H, Ur Leukocyte Esterase 100 H, Urine RBC 0 SEEN, Urine WBC 5-10 SEEN, Ur Squamous Epith Cells 0-5 SEEN, Urine Bacteria 3+, Urine Mucus 0 SEEN Physical Exam Narrative General: Alert, Oriented x3, Cooperative, No apparent distress HEENT: Atraumatic, PERRLA, EOMI, Normocephalic Oral: Moist Mucosa Neck: Supple, No JVD Lungs:Diminished, Normal air movement, No rhonchi, No wheeze, No rales Cardiovascular: Regular rate, Regular Rhythm, Normal S1, Normal S2, No murmurs Abdomen: Soft, Non Tender, Non-Distended, No Hepato-splenomegaly Extremities: No edema, Capillary Refill Less than 3 Seconds Skin: No rashes, No breakdown Musculoskeletal: Mild right hip tenderness Neurological: No focal neurological deficits, Motor Exam 5/5 strength throughout, Sensory exam intact to light touch and pain Psych/Mental Status: Normal Affect, Appropriate diminished Assessment & Plan Assessment/Plan (1) Fall: (2) Contusion of right hip, initial encounter: (3) Unable to ambulate: PLAN: Plan 1. Mechanical fall on with UTI ? She has had to use a walker in the past and has noticed some weakness recently after a fall on she had difficulty getting up on Thursday and had to have her son lift her up twice ? UA was dirty, will start Rocephin and await urine culture ? PT/OT ? Case management consult for discharge planning 2. Essential HTN ? Blood pressures are stable ? Can resume her home blood pressure medications ? Will monitor and make adjustments as necessary 3. Myasthenia gravis ? No exacerbation ? Continue with her home medications 4. Anxiety/depression ? Stable ? Continue with her home meds n monitor make adjustments as necessary 5. Hypothyroidism ? Stable ? Continue with Synthroid DVT: Lovenox Charges/Coding Visit Charges Inpatient E&M: 32062 Subs Hosp L2
[2024-06-19] MEDS: busPIRone 5 MG Tablet PO ×2 (09:23→21:39)
[2024-06-19] MEDS: Cholecalciferol (VIT D3) 25 MCG TABLET (1,000 UNITS) 50 MCG PO (09:23)
[2024-06-19] MEDS: Folic Acid 1 MG Tablet 2 MG PO (09:23)
[2024-06-19] MEDS: Menthol/Lanolin/Calamine/Znox 113 GM Tube 1 APPLIC TOPICAL ×2 (09:24→19:42)
[2024-06-19] MEDS: Pyridostigmine Bromide 60 MG Tablet PO ×2 (09:25→21:40)
[2024-06-19] MEDS: Methotrexate 2.5 MG Tablet 12.5 MG PO (09:25)
[2024-06-19] MEDS: Sertraline 50 MG Tablet PO (09:31)
[2024-06-19] MEDS: Ceftriaxone 1 GM/50 ML BAG IV (09:31)
[2024-06-19] MEDS: Enoxaparin 40 MG/0.4 ML Syringe SC (09:32)
[2024-06-19] MEDS: Mycophenolate Mofetil 250 MG Capsule 500 MG PO ×2 (09:33→21:40)
[2024-06-19] MEDS: Metoprolol Tartrate 25 MG Tablet PO (21:38)
[2024-06-19] MEDS: 0.9% Saline Lock 10 ML Syringe IV (21:39)
[2024-06-19] MEDS: MELATONIN 3 MG TABLET PO (21:39)
[2024-06-19] MEDS: Lisinopril 40 MG Tablet PO (21:41)
[2024-06-20 05:06] VITALS: BP 151/73; PULSE 56; RESP 18; TEMP 36.6; O2SAT 100
[2024-06-20] MEDS: Acetaminophen 500 MG Tablet 1000 MG PO ×2 (05:08→13:26)
[2024-06-20] MEDS: Levothyroxine 25 MCG TABLET PO (05:08)
[2024-06-20 06:23] LABS: Absolute Lymphocyte Count 1.32 X10^3/uL (0.83-4.51); Absolute Neutrophil Count 4.2 X10^3/uL (2.0-7.7); Basophil# 0.04 X10^3/uL; Basophil% 0.6 % (0-1); Eosinophil# 0.19 X10^3/uL; Eosinophils% 2.9 % (0-5); Hematocrit 32.7 % (37-47); Hemoglobin 10.6 g/dL (12.0-15.0); Lymphocyte # 1.32 X10^3/ul (0.83-4.51); Lymphocyte % 19.9 % (19-41); Mean Corp Hgb Conc 32.4 g/dL (32-36); Mean Corpuscular Hgb 31.5 pg (27.0-32.0); Mean Corpuscular Volume 97.3 fL (81-99); Mean Platelet Vol. 10.9 fl (6.2-12.0); Monocyte# 0.81 X10^3/uL; Monocyte% 12.2 % (0-10); NRBC Flagged by Analyzer 0 % (0-5); Neutrophil # 4.23 X10^3/uL (2.7-7.7); Neutrophil % 63.9 % (47-70); Platelet Count 145 K/mm3 (150-450); RBC Distribution Width SD 48.4 fl (35.1-43.9); Red Blood Count 3.36 M/mm3 (4.2-5.4); White Blood Count 6.6 K/mm3 (4.4-11.0)
[2024-06-20 06:37] LABS: Anion Gap 4 (5-15); BUN 27 mg/dL (7-18); BUN/Creat Ratio 36.9 RATIO (10-20); Calcium,Total 9.3 mg/dL (8.5-10.1); Chloride 112 mmol/L (98-107); Creatinine, Serum 0.73 mg/dL (0.55-1.02); EST Glomerular Filtration Rate 82 mL/min (>60); Est Glom Filt Rate - Afr Amer 99 mL/min (>60); Estimated Creatinine Clearance 54.15 ml/min; Glucose 108 mg/dL (74-106); Potassium 4.3 mmol/L (3.5-5.1); Sodium Level 137 mmol/L (136-145)
[2024-06-20 07:40] VITALS: O2SAT 98
--- NOTE | 2024-06-20 08:04 | CASEMGMT ---
Social Work- Pt has directives naming Valdo; primary, Darwin and Ruth, sons; alternate agents on file in chart. LARA Evans
--- NOTE | 2024-06-20 09:30 | PCM.PN.HOSP ---
Subjective Subjective Doing well, no issues overnight, may need rehab or SNF placement as long as she can get insurance approval she refused to pay [id number] Objective Data Objective Data Vital Signs: Vital Signs Temp Pulse Resp BP Pulse Ox O2 Del Method 98 F 56 L 18 151/73 H 98 Room Air 06/20/24 05:06 06/20/24 05:06 06/20/24 05:06 06/20/24 05:06 06/20/24 07:40 06/20/24 07:40 Oxygen Delivery Method Room Air Weight: 165 lb 14.4 oz Body Mass Index (BMI) 29.8 Intake & Output: Intake and Output for Last 24 Hours 06/19/24 06/20/24 06/21/24 03:59 03:59 03:59 Intake Total 623 / 623 1050 / 1050 200 / 200 Output Total 450 / 450 750 / 750 300 / 300 Balance 173 / 173 300 / 300 -100 / -100 Lab / Micro Data 06/20/24 05:10 06/20/24 05:10 Labs: Laboratory Results - last 24 hr 06/20/24 05:10: WBC 6.6, RBC 3.36 L, Hgb 10.6 L, Hct 32.7 L, MCV 97.3, MCH 31.5, MCHC 32.4, RDW Std Deviation 48.4 H, RDW Coeff of Swetha 14.0, Plt Count 145 L, MPV 10.9, Immature Gran % (Auto) 0.500, Neut % (Auto) 63.9, Lymph % (Auto) 19.9, [place] % (Auto) 12.2 H, Eos % (Auto) 2.9, Baso % (Auto) 0.6, Absolute Neuts (auto) 4.2, Absolute Lymphs (auto) 1.32, Nucleated RBC % 0, Sodium 137, Potassium 4.3, Chloride 112 H, Carbon Dioxide 21.0, Anion Gap 4 L, BUN 27 H, Creatinine 0.73, Estim Creat Clear Calc 54.15, Est GFR (MDRD) Af Amer 99, Est GFR (MDRD) Non-Af 82, BUN/Creatinine Ratio 36.9 H, Glucose 108 H, Calcium 9.3 Micro: Microbiology 06/18/24 11:55 Urine, Clean Catch Urine Culture - Final Escherichia coli Physical Exam Narrative General: Alert, Oriented x3, Cooperative, No apparent distress HEENT: Atraumatic, PERRLA, EOMI, Normocephalic Oral: Moist Mucosa Neck: Supple, No JVD Lungs:Diminished, Normal air movement, No rhonchi, No wheeze, No rales Cardiovascular: Regular rate, Regular Rhythm, Normal S1, Normal S2, No murmurs Abdomen: Soft, Non Tender, Non-Distended, No Hepato-splenomegaly Extremities: No edema, Capillary Refill Less than 3 Seconds Skin: No rashes, No breakdown Musculoskeletal: Mild right hip tenderness Neurological: No focal neurological deficits, Motor Exam 5/5 strength throughout, Sensory exam intact to light touch and pain Psych/Mental Status: Normal Affect, Appropriate diminished Assessment & Plan Assessment/Plan (1) Fall: (2) Contusion of right hip, initial encounter: (3) Unable to ambulate: PLAN: Plan 1. Mechanical fall on with E. coli UTI ? She has had to use a walker in the past and has noticed some weakness recently after a fall on she had difficulty getting up on Thursday and had to have her son lift her up twice ? Urine culture is sensitive to Rocephin, will transition to p.o. cefdinir ? PT/OT ? Case management consult for discharge planning 2. Essential HTN ? Blood pressures are stable ? Can resume her home blood pressure medications ? Will monitor and make adjustments as necessary 3. Myasthenia gravis ? No exacerbation ? Continue with her home medications 4. Anxiety/depression ? Stable ? Continue with her home meds n monitor make adjustments as necessary 5. Hypothyroidism ? Stable ? Continue with Synthroid DVT: Lovenox Charges/Coding Visit Charges Inpatient E&M: 63672 Subs Hosp L2
[2024-06-20 09:57] VITALS: BP 127/65; PULSE 60
[2024-06-20] MEDS: Metoprolol Tartrate 25 MG Tablet PO (09:57)
[2024-06-20] MEDS: Folic Acid 1 MG Tablet 2 MG PO (09:57)
[2024-06-20] MEDS: Menthol/Lanolin/Calamine/Znox 113 GM Tube 1 APPLIC TOPICAL (09:57)
[2024-06-20] MEDS: Cholecalciferol (VIT D3) 25 MCG TABLET (1,000 UNITS) 50 MCG PO (09:57)
[2024-06-20] MEDS: busPIRone 5 MG Tablet PO (09:57)
[2024-06-20] MEDS: Sertraline 50 MG Tablet PO (09:57)
[2024-06-20] MEDS: Mycophenolate Mofetil 250 MG Capsule 500 MG PO (09:58)
[2024-06-20] MEDS: Pyridostigmine Bromide 60 MG Tablet PO (09:58)
[2024-06-20] MEDS: Enoxaparin 40 MG/0.4 ML Syringe SC (09:58)
[2024-06-20] MEDS: Cefdinir 300 MG Capsule PO (10:00)
[2024-06-20 10:07] VITALS: BP 127/65; PULSE 60; RESP 18; TEMP 36.7; O2SAT 99
--- NOTE | 2024-06-20 12:20 | CASEMGMT ---
Social Work- SW updated pt of RU declination of referral. SW provided a list of other rehab units; pt declines and reports that she would like to go home with help. NEO updated RNCM. LARA Evans
--- NOTE | 2024-06-20 12:30 | CASEMGMT ---
Addendum entered by Latosha Prieto 06/20/24 13:48: Ember from [facility] calls and states that they can accept the pt for SOC Thursday. DC plan updated. RN JOSE DANIEL to pt room at this time. Pt states that she is content with this. This RN CM also educated the pt about private duty aides and the pt refused this d/t insurance not covering this service. Pt denies further needs at this time. Original Note: This RN CM was notified that the pt would like to DC home and is refusing further inpt rehab options. RN JOSE DANIEL to pt room at this time. Pt states that she would feel safe discharging home if she were to have HHC set up. Pt also states that her son will be able to help her out at home as they live together. Pt refused wanting to see a list of local in-network HHC companies and states that she would prefer to go through [facility]. TC to [facility] and referral made for SN, PT, and OT. Awaiting return response. Dr. Lenz updated.
--- NOTE | 2024-06-20 13:09 | DCINST_ITS ---
Discharge Instructions Diet Discharge Diet: Low fat / Low cholesterol Activity Discharge Activity: Return to Normal Activity Dressing / Incision Call your doctor if you observe: Fever of 101 or Higher, Shortness of breath, Dizziness, Fainting spells, Swelling in the ankles, Chest pain and Increased palpitations (irregular heartbeat) Follow Up Care Test Results: Test results from this visit will be discussed in further detail at your follow- up appointment, if applicable. Discharge Plan Admission Admit Date/Time: 06/17/24 14:54 Attending Provider: Alex Lenz Primary Care Provider: Kim Valdez Consulting Providers: Wale Clayton Discharge Orders/Prescriptions Prescriptions: New cefdinir 300 mg Capsule 300 mg PO Q12 4 Days Qty: 8 0RF Continued mycophenolate mofetil 250 mg capsule 500 mg PO BID methotrexate sodium 2.5 mg tablet 12.5 mg PO MA levothyroxine 25 MCG tablet 25 mcg PO DAILY@0600 0RF cholecalciferol (vitamin D3) 1,000 UNIT tablet 5,000 unit PO DAILYCM 0RF lisinopril 40 mg tablet 40 mg PO DAILY folic acid 1 mg tablet 2 mg PO DAILY pyridostigmine bromide 60 mg tablet 60 mg PO BID buspirone 5 MG tablet 7.5 mg PO BID sertraline 50 mg tablet 50 mg PO DAILY Patient Comments: PT CURRENTLY TAKING, BUT DR. SANTIAGO NULL WANTS HER TO SWITCH TO CYMBALTA SOON metoprolol tartrate 25 MG tablet 25 mg PO BID Referrals / Follow Up: Kim Valdez, DEPUTY FIRE MARSHAL-C [Primary Care Provider] - Within 1 Week Disposition Disposition (needs filled in before D/C Order can be placed): [facility]
--- NOTE | 2024-06-20 13:12 | DS.PCM_ITS ---
Providers Date of Admission: 06/17/24 Primary Care Physician: Kim Valdez NP-C Reason For Visit: FALL WITH DEBILITY Diagnosis Discharge Diagnosis (1) Fall: Status: Acute Code(s): W19.XXXA - Unspecified fall, initial encounter (2) Contusion of right hip, initial encounter: Status: Acute Code(s): S70.01XA - Contusion of right hip, initial encounter (3) Unable to ambulate: Status: Acute Code(s): R26.2 - Difficulty in walking, not elsewhere classified Medications at Discharge Home Medications cholecalciferol (vitamin D3) 25 mcg (1,000 unit) tablet 5,000 unit PO DAILYCM 06/21/19 levothyroxine 25 mcg tablet 25 mcg PO DAILY@0600 06/21/19 methotrexate sodium 2.5 mg tablet 12.5 mg PO MA 11/27/23 mycophenolate mofetil 250 mg capsule 500 mg PO BID 11/27/23 buspirone 5 mg tablet 7.5 mg PO BID 06/17/24 folic acid 1 mg tablet 2 mg PO DAILY 06/17/24 lisinopril 40 mg tablet 40 mg PO DAILY 06/17/24 metoprolol tartrate 25 mg tablet 25 mg PO BID 06/17/24 pyridostigmine bromide 60 mg tablet 60 mg PO BID 06/17/24 sertraline 50 mg tablet 50 mg PO DAILY 06/17/24 cefdinir 300 mg capsule 300 mg PO Q12 4 days #8 caps 06/20/24 Hospital Course Operations None Procedures None Summary of Care Provided Minutes Spent on Discharge: 33 Hospital Course: Per HPI: JAVIER STANFORD, is a 78 F who presented to [facility] ED on 06/17/2024 with multiple recent falls and difficulty with ambulation. Patient lives at home, son lives with her but he is frequently working. She has history of bilateral hip arthroplasties. States she has felt weaker over the past several days and then had a small fall yesterday and then worse fall this morning while getting out of bed. She fell onto her right hip and had right hip pain, and was unable to get off the floor so she called EMS to bring her in. Hip/pelvis x-ray showed prior bilateral hip arthroplasties with no acute fracture or dislocation identified. She was given doses of IV morphine with some improvement in pain. However, when ED staff attempted to walk her she could only take a few steps with assistance before having to sit back down due to weakness and hip pain. ED staff told her that she would likely need to go to a skilled nursing for rehabilitation because of this and she was agreeable to that. Hospitalist was then contacted for admission. I saw the patient at bedside in the ED. She was mildly fatigued appearing but otherwise sitting up comfortably in bed, conversing normally, no acute distress. She reported mild right hip pain currently, improved from earlier today. Denied any other acute pain or discomfort. She generally stated that she simply felt more weak than her normal. Denied any recent medication changes. Denied any recent infectious type symptoms. Stated she has been eating and drinking about her normal. No other acute concerns at this time. Hospital Course: 1. Mechanical fall secondary to E. coli UTI?78-year-old female fell on night at her home and did not think much of it and went to bed, Thursday morning when she got up she could not support her weight and slid to the floor. She has had to use walkers in the past to help with ambulation but given the weakness and the fact that her son who lives with her had to pick her up off the floor twice on Thursday she presented to the hospital. She was found to have a UTI secondary to E. coli, she was started on Rocephin and the culture ultimately demonstrated sensitivities to Rocephin so she was transition to p.o. cefdinir. PT and OT did recommend possible placement however she was refusing after she was denied the rehab unit in terms of going anywhere else. I discussed with her the plan for discharge and she expressed understanding of the recommended is going home and would like to go home today. Will continue with another 4 days of p.o. cefdinir with outpatient follow-up to her PCP in 3 to 5 days 2. Essential hypertension, myasthenia gravis, anxiety, depression, hypothyroidism are all chronic medical conditions which complicate her care. Her home medications were continued where appropriate Physical Exam Narrative General: Alert, Oriented x3, Cooperative, No apparent distress HEENT: Atraumatic, PERRLA, EOMI, Normocephalic Oral: Moist Mucosa Neck: Supple, No JVD Lungs:Diminished, Normal air movement, No rhonchi, No wheeze, No rales Cardiovascular: Regular rate, Regular Rhythm, Normal S1, Normal S2, No murmurs Abdomen: Soft, Non Tender, Non-Distended, No Hepato-splenomegaly Extremities: No edema, Capillary Refill Less than 3 Seconds Skin: No rashes, No breakdown Musculoskeletal: Mild right hip tenderness Neurological: No focal neurological deficits, Motor Exam 5/5 strength throughout, Sensory exam intact to light touch and pain Psych/Mental Status: Normal Affect, Appropriate diminished Weight / BMI Weight Weight: 165 lb 14.4 oz Body Mass Index (BMI) 29.8 ABG / Lab / Microbiology Data 06/20/24 05:10 06/20/24 05:10 Laboratory: Laboratory Results - last 24 hr 06/20/24 05:10: WBC 6.6, RBC 3.36 L, Hgb 10.6 L, Hct 32.7 L, MCV 97.3, MCH 31.5, MCHC 32.4, RDW Std Deviation 48.4 H, RDW Coeff of Swetha 14.0, Plt Count 145 L, MPV 10.9, Immature Gran % (Auto) 0.500, Neut % (Auto) 63.9, Lymph % (Auto) 19.9, M [place] % (Auto) 12.2 H, Eos % (Auto) 2.9, Baso % (Auto) 0.6, Absolute Neuts (auto) 4.2, Absolute Lymphs (auto) 1.32, Nucleated RBC % 0, Sodium 137, Potassium 4.3, Chloride 112 H, Carbon Dioxide 21.0, Anion Gap 4 L, BUN 27 H, Creatinine 0.73, Estim Creat Clear Calc 54.15, Est GFR (MDRD) Af Amer 99, Est GFR (MDRD) Non-Af 82, BUN/Creatinine Ratio 36.9 H, Glucose 108 H, Calcium 9.3 Microbiology: Microbiology 06/18/24 11:55 Urine, Clean Catch Urine Culture - Final Escherichia coli D/C Instructions Discharge Diet: Low fat / Low cholesterol Call your doctor if you observe: Fever of 101 or Higher, Shortness of breath, Dizziness, Fainting spells, Swelling in the ankles, Chest pain and Increased palpitations (irregular heartbeat) Meaningful Use Info Meaningful Use Meaningful Use Diagnoses (Choose all that apply): None applicable Ischemic Stroke Statin Dosing Therapy Reference: STATIN DOSE THERAPY REFERENCE: * Patients > 75 years receive moderate or high dose statin therapy. * Patients 75 years or YOUNGER should receive HIGH intensity statin dose unless contraindicated. You will be required to document reason for non-treatment if statin daily dose does not meet guidelines. HIGH DOSE STATIN THERAPY DAILY Atorvastatin > than or = to 40 mg Rosuvastatin > than or = to 20 mg Amlodipine + Atorvastatin > than or = to 2.5/40 mg Ezetimibe + Simvastatin 10/80 mg Simvastatin 80mg Discharge Plan Admission Admit Date/Time: 06/17/24 14:54 Attending Provider: Alex Lenz Primary Care Provider: Kim Valdez Consulting Providers: Wale Clayton Discharge Orders/Prescriptions Prescriptions: New cefdinir 300 mg Capsule 300 mg PO Q12 4 Days Qty: 8 0RF Continued mycophenolate mofetil 250 mg capsule 500 mg PO BID methotrexate sodium 2.5 mg tablet 12.5 mg PO MA levothyroxine 25 MCG tablet 25 mcg PO DAILY@0600 0RF cholecalciferol (vitamin D3) 1,000 UNIT tablet 5,000 unit PO DAILYCM 0RF lisinopril 40 mg tablet 40 mg PO DAILY folic acid 1 mg tablet 2 mg PO DAILY pyridostigmine bromide 60 mg tablet 60 mg PO BID buspirone 5 MG tablet 7.5 mg PO BID sertraline 50 mg tablet 50 mg PO DAILY Patient Comments: PT CURRENTLY TAKING, BUT DR. SANTIAGO NULL WANTS HER TO SWITCH TO CYMBALTA SOON metoprolol tartrate 25 MG tablet 25 mg PO BID Referrals / Follow Up: Kim Valdez, TECHNICAL SALES DIRECTOR-C [Primary Care Provider] - Within 1 Week Disposition Disposition (needs filled in before D/C Order can be placed): Home Health Service Charges/Coding Visit Charges Inpatient E&M: 46406 Disch Hosp >30min
[2024-06-20 14:19] VITALS: BP 111/65; PULSE 58; RESP 18; TEMP 36.6; O2SAT 98
--- NOTE | 2024-06-20 15:39 | PHA.DC.MC.R ---
Pharmacy [facility] Pharm[facility] Service has performed discharge medication reconciliation and counseling for this patient. 1. CEFDINIR 300MG PO Q12 X 4 DAYS The patient's discharge medication list was reviewed for discrepancies and discrepancies were resolved. The patient was counseled on the following discharge medications and changes in medications for homegoing were reviewed. The Reason for Use, instructions for use, and potential side effects were reviewed for all new medications. The patient's questions regarding all of their medications were answered. The patient was able to verbally demonstrate an understanding of their discharge medications. Medications at Discharge Home Medications cholecalciferol (vitamin D3) 25 mcg (1,000 unit) tablet 5,000 unit PO DAILYCM 06/21/19 levothyroxine 25 mcg tablet 25 mcg PO DAILY@0600 06/21/19 methotrexate sodium 2.5 mg tablet 12.5 mg PO MA 11/27/23 mycophenolate mofetil 250 mg capsule 500 mg PO BID 11/27/23 buspirone 5 mg tablet 7.5 mg PO BID 06/17/24 folic acid 1 mg tablet 2 mg PO DAILY 06/17/24 lisinopril 40 mg tablet 40 mg PO DAILY 06/17/24 metoprolol tartrate 25 mg tablet 25 mg PO BID 06/17/24 pyridostigmine bromide 60 mg tablet 60 mg PO BID 06/17/24 sertraline 50 mg tablet 50 mg PO DAILY 06/17/24 cefdinir 300 mg capsule 300 mg PO Q12 4 days #8 caps 06/20/24
== END 2024-06-20 15:51 | disposition home health service (06) ==
LOC: ED 15:14 → MS3 15:15
PROVIDERS: Admitting Provider Hospitalist; Emergency Provider Emergency Medicine; PCP Nurse Practitioner Family; Visit Provider Family Medicine
DX: N39.0 Urinary tract infection, site not specified (principal); G70.00 Myasthenia gravis without (acute) exacerbation; I48.0 Paroxysmal atrial fibrillation; S70.01XA Contusion of right hip, initial encounter; R53.81 Other malaise; F41.9 Anxiety disorder, unspecified; Z68.33 Body mass index [BMI] 33.0-33.9, adult; F17.210 Nicotine dependence, cigarettes, uncomplicated; I10 Essential (primary) hypertension; E03.9 Hypothyroidism, unspecified; W19.XXXA Unspecified fall, initial encounter; R53.1 Weakness; E66.9 Obesity, unspecified; Z79.899 Other long term (current) drug therapy; Z79.890 Hormone replacement therapy; R26.2 Difficulty in walking, not elsewhere classified; B96.20 Unspecified Escherichia coli [E. coli] as the cause of diseases classified elsewhere
CPT/HCPCS: 36415; 73502; 80048; 81001; 85025; 85027; 87077; 87086; 87088; 87186; 94668; 96365; 96366; 96372; 96375; 97116; 97162; 97166; 97530; 97535; 99221; 99284; J7050; A4216; G0378; J8610

== ENCOUNTER → 2024-07-15 | Outpatient (CLI) | payer MEDICARE, OTHER, SELFPAY ==
[2024-07-15 17:20] LABS: Mucous, Urine 0 SEEN /hpf (<or=2+)
[2024-07-15 17:50] LABS: Glucose, Dipstick Normal (Normal); Ketone-Dipstick Negative (Negative); Leukocyte Esterase-Dipstick 500 /ul (Negative); Nitrite-Dipstick Positive (Negative); Occult Blood-Urine 25 /ul (Negative); Protein-Dipstick 30 mg/dl (Negative); Urine Bilirubin Dipstick Negative (Negative); Urine Urobilinogen Normal (Normal)
[2024-07-15 17:59] LABS: Color, Urine Yellow (Yellow)
[2024-07-15 18:02] LABS: Urine Clarity Cloudy (Clear)
[2024-07-15 18:24] LABS: White Blood Cells >100 SEEN /hpf (0-5)
[2024-07-15 18:25] LABS: Bacteria 3+ /hpf (None Seen); Squamous Epithelial Cells - UA 0-5 SEEN /hpf (5-10); Transitional Epithelial - Ur 0-5 SEEN /hpf (0-5)
[2024-07-15 18:27] LABS: Red Blood Cells-Urine 5-10 SEEN /hpf (0-5)
[2024-07-15 18:28] LABS: Renal Epithelial Cells 0-5 SEEN /hpf (0-5)
[2024-07-15 18:35] LABS: Triple Phosphate Crystals Ur 2+ /hpf (<or=1+)
== END | disposition home or self-care (01) ==
LOC: LABSPEC 16:54
PROVIDERS: PCP Nurse Practitioner Family; Referring Provider Nurse Practitioner Family; Visit Provider Nurse Practitioner Family
DX: R39.9 Unspecified symptoms and signs involving the genitourinary system (principal)
CPT/HCPCS: 81001; 87077; 87086; 87088; 87186

== ENCOUNTER → 2024-08-03 | Outpatient (CLI) | payer MEDICARE, OTHER, SELFPAY ==
[2024-08-03 12:49] LABS: ALB/GLOB Ratio 1.2 RATIO (0.9-2.4); AST(SGOT) 9 U/L (15-37); Alanine Aminotransfer ALT/SGPT 13 U/L (13-56); Alkaline Phosphatase 82 U/L (45-117); Anion Gap 7 (5-15); BUN 21 mg/dL (7-18); BUN/Creat Ratio 24.6 RATIO (10-20); Calcium,Total 10.3 mg/dL (8.5-10.1); Chloride 113 mmol/L (98-107); Creatinine, Serum 0.86 mg/dL (0.55-1.02); EST Glomerular Filtration Rate 68 mL/min (>60); Est Glom Filt Rate - Afr Amer 82 mL/min (>60); Globulin 3.2 g/dL (2.2-4.2); Glucose 136 mg/dL (74-106); Protein, Total 7.2 g/dL (6.4-8.2); Sodium Level 138 mmol/L (136-145)
[2024-08-03 12:52] LABS: Hematocrit 37.8 % (37-47); Hemoglobin 12.1 g/dL (12.0-15.0); Mean Corpuscular Volume 95.2 fL (81-99); Red Blood Count 3.97 M/mm3 (4.2-5.4); White Blood Count 6.4 K/mm3 (4.4-11.0)
[2024-08-03 12:53] LABS: Basophil# 0.03 X10^3/uL; Basophil% 0.5 % (0-1); Eosinophils% 0.8 % (0-5); Lymphocyte % 18.6 % (19-41); Mean Corpuscular Hgb 30.5 pg (27.0-32.0); Mean Platelet Vol. 11.5 fl (6.2-12.0); Monocyte# 0.44 X10^3/uL; Monocyte% 6.8 % (0-10); Neutrophil # 4.69 X10^3/uL (2.7-7.7); Neutrophil % 72.8 % (47-70); Platelet Count 189 K/mm3 (150-450); RBC Distribution Width CV 14.2 % (11.6-14.6); RBC Distribution Width SD 48.9 fl (35.1-43.9)
== END | disposition home or self-care (01) ==
LOC: MTLAB 10:45
PROVIDERS: PCP Nurse Practitioner Family; Referring Provider Internal Medicine Rheumatology; Visit Provider Internal Medicine Rheumatology
DX: M06.4 Inflammatory polyarthropathy (principal); G70.00 Myasthenia gravis without (acute) exacerbation; Z79.899 Other long term (current) drug therapy; M79.7 Fibromyalgia
CPT/HCPCS: 36415; 80053; 85025